=== PATIENT | male | born 1955 | race Caucasian/White ===

== ENCOUNTER 2018-06-01 17:24 | Inpatient (IN) ==
[2018-06-01] MEDS ORDERED: Sod Chloride 0.9% Inj 1,000 ML IV.SIG SCH ×2 (18:00→18:45)
[2018-06-01] MEDS ORDERED: Morphine Sulfate Inj 8 MG/ML Vial IV.PUSH ONE (18:04)
[2018-06-01] MEDS ORDERED: Vancomycin Inj 1,000 MG in Sodium Chlor 0.9% Inj 250 ML IV.SIG ONE ×2 (18:25→23:00)
--- NOTE | 2018-06-01 18:26 | XR ---
EXAM DATE: 06/01/2018 6:18 PM EST AGE/SEX: 62 years / Male INDICATIONS: Fever. Patient had open wound on lower back. CLINICAL DATA: This is the patient's initial encounter. Patient reports that signs and symptoms have been present for 1 day and indicates a pain score of 0/10. MEDICAL/SURGICAL HISTORY: None. None. COMPARISON: No prior exams available for comparison. FINDINGS: A single AP view of the chest demonstrates the lungs to be symmetrically aerated without evidence of mass, infiltrate or effusion. The cardiomediastinal contours are unremarkable. Osseous structures a re intact. CONCLUSION: No evidence of acute cardiopulmonary disease. Electronically signed by: Luca Grant MD 06/01/2018 6:24 PM EST
[2018-06-01 18:34] LABS: Baso # (Auto) 0.1 th/mm3 (0.0-0.2); Baso % (Auto) 0.4 % (0.0-2.0); Hematocrit 40.9 % (39.0-51.0); Hemoglobin 13.6 gm/dL (13.0-17.0); Lymph # (Auto) 0.8 th/mm3 (1.0-4.8); Lymph % (Auto) 3.9 % (9.0-44.0); Mean Corpuscular HGB Conc 33.3 % (32.0-36.0); Mean Corpuscular Hemoglobin 30.4 pg (27.0-34.0); Mean Corpuscular Volume 91.4 fL (80.0-100.0); Mean Platelet Volume 8.4 fL (7.0-11.0); Mono # (Auto) 0.8 th/mm3 (0.0-0.9); Mono % (Auto) 3.9 % (0.0-8.0); Neut # (Auto) 17.9 th/mm3 (1.8-7.7); Neut % (Auto) 91.8 % (16.0-70.0); Platelet Count 660 th/mm3 (150-450); Red Blood Count 4.47 mil/mm3 (4.50-5.90); Red Cell Distribution Width 14.3 % (11.6-17.2); White Blood Count 19.5 th/mm3 (4.0-11.0)
--- NOTE | 2018-06-01 18:38 | ED ---
HPI General Chief Complaint: Recheck/Abnormal Lab/Rx Stated Complaint: Patient states poss infection in spinal area Time Seen by Provider: 06/01/18 17:55 Source: patient and family Mode of arrival: wheelchair Limitations: no limitations History of Present Illness HPI narrative: 62 yo male that presents to the ED for evaluation of infection to lower back. Patient states that he was told by his doctor to come here stat due to infection to lower back. Per patient history of lower back pain x 3 weeks. No injury. per patient not improving and MRI was ordered and apparently showed infection and told to come here. Per patient no surgeries to his back recently but one done almost 12 years ago. no injury. No weakness. No numbness, tingling. No fevers. pain is 10/10 with movement. History of DM. No blood thinners. Taking pain meds and per patient steroids. patient denies any urinary or BM issues. Related Data Home Medications Medication Instructions Recorded Confirmed Unable to Obtain Home Meds 06/01/18 06/01/18 Allergies Allergy/AdvReac Type Severity Reaction Status Date / Time penicillin G Allergy Unknown Rash Verified 06/01/18 19:02 Review of Systems ROS: all other systems reviewed are negative [facility] Medical History Medical History Diabetes (Acute) High cholesterol (Acute) Surgical History Surgical History Previous back surgery (Acute) Social History Social History Substance History: No History of Abuse Smoking Status: Never smoker How Often Do You Have a Drink Containing Alcohol: Never Recent Travel in [facility] within the Last 8 Weeks: No Recent Out of Country Travel within the Last 8 Weeks: No Immunization History Tetanus Immunization: >5 Years Exam Narrative Exam Narrative: GENERAL: SKIN: Warm and dry. HEAD: Atraumatic. Normocephalic. EYES: Pupils equal and round. No scleral icterus. No injection or drainage. ENT: No nasal bleeding or discharge. Mucous membranes pink and moist. Tongue is midline. No uvula deviation. NECK: Trachea midline. No JVD. CARDIOVASCULAR: Regular rate and rhythm. RESPIRATORY: No accessory muscle use. Clear to auscultation. Breath sounds equal bilaterally. GASTROINTESTINAL: Abdomen soft, non-tender, nondistended. Hepatic and splenic margins not palpable. MUSCULOSKELETAL: Extremities without clubbing, cyanosis, or edema. No obvious deformities. Full ROM of the upper and lower extremities with severe pain with ROM of the lower extremities especially straight leg test. 2+ pulses bilaterally. Lumbar spine tenderness. No thoracic, cervical spine tenderness to palpation. NEUROLOGICAL: Awake and alert. No obvious cranial nerve deficits. Motor grossly within normal limits. Five out of 5 muscle strength in the arms and legs. Normal speech. PSYCHIATRIC: Appropriate mood and affect; insight and judgment normal. Course Initial Documented Vital Signs Temperature 97.5 F L 06/01/18 17:35 Pulse Rate 119 H 06/01/18 17:35 Respiratory Rate 22 06/01/18 17:35 Blood Pressure 131/75 06/01/18 17:35 Pulse Oximetry 100 06/01/18 17:35 Last Documented Vital Signs Temperature 97.5 F L 06/01/18 17:35 Pulse Rate 91 H 06/01/18 19:20 Respiratory Rate 16 06/01/18 19:20 Blood Pressure 122/68 06/01/18 19:20 Pulse Oximetry 98 06/01/18 19:20 Medical Decision Making MDM Narrative Medical decision making narrative: 62 yo male here for infected lower back. patient was evaluated and MRI from outside facility reviewed. MRI showed: 1) Post contrast images are concerning for an osteomyelitis of a good portion of the L5 vertebral body and superior endplate of S1 with an intervening epidural abscess. Sparing of the intervertebral disk. 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 3) Results were discussed with Dr Nica Tyson. Labs and imaging ordered. Case discussed with my attending Dr Rollins who recommends speaking with neurosurgery. Dr Virgen consulted and recommends admission to medicine, IR consult to see if they can do a biopsy and culture. Consult to IR Dr Pickering who states he wont be able to do the procedure tonight but will do it in the am, NPO and preop labs. Case discussed with my attending Dr Rollins who recommends we start antibiotics as patient will not be able to get procedure until Tomorrow, he recommends starting on ceftizimide and vancomycin, this was ordered. Dr Tyson consulted and states that she has not seen the patient and is one of her partner's patients and will defer case to neurosugery and IR. Patient understands need for admission. Labs showed WBC elevation, lactic acidosis. Patient admitted to Dr Fernandez who agrees with treatment plan. Medical Screen Exam Complete: Yes Emergency Medical Condition: Yes Differential Diagnosis Differential Diagnosis: epidural abscess vs osteomyelitis vs sepsis Medical Records Medical records reviewed: Yes I reviewed the patient's medical records. Lab Data Lab results reviewed: Yes I reviewed the patient's lab results. Result diagrams: 06/01/18 18:15 06/01/18 18:15 Lab Results 06/01/18 06/01/18 06/01/18 Range/Units 18:15 18:15 18:15 WBC 19.5 H (4.0-11.0) th/mm3 RBC 4.47 L (4.50-5.90) mil/mm3 Hgb 13.6 (13.0-17.0) gm/dL Hct 40.9 (39.0-51.0) % MCV 91.4 (80.0-100.0) fL MCH 30.4 (27.0-34.0) pg MCHC 33.3 (32.0-36.0) % RDW 14.3 (11.6-17.2) % Plt Count 660 H (150-450) th/mm3 MPV 8.4 (7.0-11.0) fL Neut % (Auto) 91.8 H (16.0-70.0) % Lymph % (Auto) 3.9 L (9.0-44.0) % [place] % (Auto) 3.9 (0.0-8.0) % Eos % (Auto) 0.0 (0.0-4.0) % Baso % (Auto) 0.4 (0.0-2.0) % Neut # (Auto) 17.9 H (1.8-7.7) th/mm3 Lymph # (Auto) 0.8 L (1.0-4.8) th/mm3 [place] # (Auto) 0.8 (0.0-0.9) th/mm3 Eos # (Auto) 0.0 (0.0-0.4) th/mm3 Baso # (Auto) 0.1 (0.0-0.2) th/mm3 WBC Differential . Differential Comment Auto diff final ESR (0-20) mm/hr PT 11.7 H (9.8-11.6) sec INR 1.2 Ratio APTT 28.2 (23.4-31.7) sec Sodium 130 L (136-145) meq/L Potassium 4.6 (3.5-5.1) meq/L Chloride 98 (98-107) meq/L Carbon Dioxide 23.1 (21.0-32.0) meq/L Anion Gap 9 (5-15) meq/L BUN 27 H (7-18) mg/dL Creatinine 1.11 (0.60-1.30) mg/dL Estimated GFR 67 L (>89) mL/min POC Glucose (68-110) mg/dl Random Glucose 197 H (74-106) mg/dL Lactic Acid (0.4-2.0) mmol/L Calcium 9.6 (8.5-10.1) mg/dL Magnesium 2.4 (1.5-2.5) mg/dL Total Bilirubin 0.4 (0.2-1.0) mg/dL AST 35 (15-37) U/L ALT 27 (12-78) U/L Alkaline Phosphatase 60 (45-117) U/L Total Protein 8.5 H (6.4-8.2) g/dL Albumin 2.4 L (3.4-5.0) g/dL 06/01/18 06/01/18 06/01/18 Range/Units 18:15 18:15 19:22 WBC (4.0-11.0) th/mm3 RBC (4.50-5.90) mil/mm3 Hgb (13.0-17.0) gm/dL Hct (39.0-51.0) % MCV (80.0-100.0) fL MCH (27.0-34.0) pg MCHC (32.0-36.0) % RDW (11.6-17.2) % Plt Count (150-450) th/mm3 MPV (7.0-11.0) fL Neut % (Auto) (16.0-70.0) % Lymph % (Auto) (9.0-44.0) % [place] % (Auto) (0.0-8.0) % Eos % (Auto) (0.0-4.0) % Baso % (Auto) (0.0-2.0) % Neut # (Auto) (1.8-7.7) th/mm3 Lymph # (Auto) (1.0-4.8) th/mm3 [place] # (Auto) (0.0-0.9) th/mm3 Eos # (Auto) (0.0-0.4) th/mm3 Baso # (Auto) (0.0-0.2) th/mm3 WBC Differential Differential Comment ESR 62 H (0-20) mm/hr PT (9.8-11.6) sec INR Ratio APTT (23.4-31.7) sec Sodium (136-145) meq/L Potassium (3.5-5.1) meq/L Chloride (98-107) meq/L Carbon Dioxide (21.0-32.0) meq/L Anion Gap (5-15) meq/L BUN (7-18) mg/dL Creatinine (0.60-1.30) mg/dL Estimated GFR (>89) mL/min POC Glucose 160 H (68-110) mg/dl Random Glucose (74-106) mg/dL Lactic Acid 2.1 H (0.4-2.0) mmol/L Calcium (8.5-10.1) mg/dL Magnesium (1.5-2.5) mg/dL Total Bilirubin (0.2-1.0) mg/dL AST (15-37) U/L ALT (12-78) U/L Alkaline Phosphatase (45-117) U/L Total Protein (6.4-8.2) g/dL Albumin (3.4-5.0) g/dL Imaging Data Attestation: I personally reviewed and interpreted this imaging study as follows : Radiologist's impression: Chest X-Ray 06/01/18 17:59 CONCLUSION: No evidence of acute cardiopulmonary disease. ECG Data Attestation: I personally reviewed and interpreted this ECG as follows: Discharge Plan Physicians Team ED Provider: Gagan Rollins ED Midlevel Provider: Mohsen Torres Primary Care Provider: Vlad Richard Rxs /Orders / Referrals /Forms Prescriptions: No Action Unable to Obtain Home Meds RF: 0 Discharge Interventions Interventions: Vital Signs Last Done: 06/01/18 19:20 Status ED Status: Admitted Patient
[2018-06-01 18:42] LABS: Activated Partial Thrombo Time 28.2 sec (23.4-31.7); INR 1.2 Ratio; Prothrombin Time 11.7 sec (9.8-11.6)
[2018-06-01 18:55] LABS: Alanine Aminotransferase 27 U/L (12-78)
[2018-06-01 18:57] LABS: Alkaline Phosphatase 60 U/L (45-117); Total Protein 8.5 g/dL (6.4-8.2)
[2018-06-01 19:15] LABS: Albumin 2.4 g/dL (3.4-5.0); Anion Gap 9 meq/L (5-15); Aspartate Aminotransferase 35 U/L (15-37); Blood Urea Nitrogen 27 mg/dL (7-18); Calcium 9.6 mg/dL (8.5-10.1); Carbon Dioxide 23.1 meq/L (21.0-32.0); Chloride 98 meq/L (98-107); Glomerular Filtration Rate 67 mL/min (>89); Glucose,Random 197 mg/dL (74-106); Magnesium 2.4 mg/dL (1.5-2.5); Potassium 4.6 meq/L (3.5-5.1); Sodium 130 meq/L (136-145)
--- NOTE | 2018-06-01 19:45 | P.CONNS ---
History of Present Illness Primary Care Provider: Vlad Richard Chief Complaint: back pain History of Present Illness: 62yoM with back pain x 3 weeks, h/o back surgery 2002 ([facility] Spivey), works as a [employer], but has been unable to cover his route x 2 weeks. Son present and gives some of the history. Has been working with PCP as back pain increased, got an MRI yesterday without contrast and today with contrast, showing osteomyelitis L5/S1 with small epidural abscess. Patient stood today but has been reliant on walker and wheelchair. No bowel or bladder incontinence. Patient is leary about surgery. [facility] - History History Provided By: Patient - Medical History Medical History: Medical History (Last Reviewed 06/01/18 @ 18:29 by TRAVIS Silva) Diabetes High cholesterol - Surgical History Surgical History: Surgical History (Last Reviewed 06/01/18 @ 18:29 by TRAVIS Silva) Previous back surgery - Tobacco History Smoking Status: Never smoker - Alcohol History How Often Do You Have a Drink Containing Alcohol: Never - Substance Use History Substance History: No History of Abuse - Travel History Recent Travel in the [place] Within the Last 8 Weeks: No Recent Travel Out of the Country Within the Last 8 Weeks: No - Immunization History Tetanus Immunization: >5 Years Medications and Allergies Active Medications: Active Medications Sodium Chloride (Ns Inj) 1,000 mls @ 1,000 mls/hr IV.SIG BOLUS MIKE Stop: 06/01/18 19:44 Last Admin: 06/01/18 19:07 Dose: 1,000 mls/hr Allergies Allergy/AdvReac Type Severity Reaction Status Date / Time penicillin G Allergy Unknown Rash Verified 06/01/18 19:02 Home Medications Medication Instructions Recorded Confirmed Type Unable to Obtain Home Meds 06/01/18 06/01/18 History Exam Vital signs: Vital Signs 06/01/18 17:35 06/01/18 17:58 06/01/18 18:24 Temperature 97.5 F L Pulse Rate 119 H 104 H Respiratory Rate 22 16 Blood Pressure 131/75 Pulse Oximetry 100 95 95 06/01/18 19:20 Temperature Pulse Rate 91 H Respiratory Rate 16 Blood Pressure 122/68 Pulse Oximetry 98 Intake & Output 06/01/18 06/01/18 06/02/18 06:59 18:59 06:59 Intake Total 1000 / 1000 Balance 1000 / 1000 Weight 79.379 kg Intake: IV 1000 / 1000 NS Inj 1,000 ML @ 1000 mls/hr 1000 / 1000 IV.SIG BOLUS MIKE Rx#:[id number] Narrative: Tests to full strength and intact sensation in lower extremities in all groups ( ip, quad, ham, gas, ta, ehl). Intact upper extremities A&O x 3 CN II-XII intact Results - Laboratory Findings CBC and BMP: 06/01/18 18:15 06/01/18 18:15 Abnormal lab findings: Abnormal Labs 06/01/18 06/01/18 06/01/18 18:15 18:15 18:15 WBC 19.5 H RBC 4.47 L Plt Count 660 H Neut % (Auto) 91.8 H Lymph % (Auto) 3.9 L Neut # (Auto) 17.9 H Lymph # (Auto) 0.8 L ESR PT 11.7 H Sodium 130 L BUN 27 H Estimated GFR 67 L POC Glucose Random Glucose 197 H Lactic Acid Total Protein 8.5 H Albumin 2.4 L 06/01/18 06/01/18 06/01/18 18:15 18:15 19:22 WBC RBC Plt Count Neut % (Auto) Lymph % (Auto) Neut # (Auto) Lymph # (Auto) ESR 62 H PT Sodium BUN Estimated GFR POC Glucose 160 H Random Glucose Lactic Acid 2.1 H Total Protein Albumin - Diagnostic Findings Additional findings: MRI L-spine showing osteo at L5/S1 with small epidural abscess without mass effect Assessment and Plan - Plan 62yoM with new osteomyelitis at L5/S1, progressive back pain x 3 weeks, neurologically intact testing to full strength. Plan: Given intact exam, recommend IR/CT guided biopsy to target therapy. Admission to Medicine. ID consult thereafter. Blood cultures, urine cultures, abx. We will follow exam but neurosurgery indicated if he develops weakness, not at the moment and should improve with abx. Patient also reluctant to proceed with surgery.
[2018-06-01] MEDS ORDERED: Dextrose 50% in Water 50 ML Vial IV.PUSH PRN (21:42)
--- NOTE | 2018-06-01 21:53 | P.HP ---
History of Present Illness Service: [facility] Primary Care Physician: Vlad Richard Chief Complaint: back pain History of Present Illness: 62-year-old white male was has a history of back pain back in 2002 where he underwent surgery for discectomy for the last few weeks has had increasing back pain which did not respond to medications fluting anti-inflammatories and prednisone primary care physician ordered a MRI which revealed an osteomyelitis with a small epidural abscess in his L5-S1 and sent to [place] for evaluation by neurosurgery and admission. Patient denies any fever chills does have a history of diabetes for which he takes some p.o. medications including metformin he does not recall the name he will bring them in also takes a statin other than that is been essentially negative past medical in the emergency room he was seen and by the neurosurgeon not keen to have undergoing surgery but will first start on antibiotics including vancomycin ceftazidine. And will get evaluation by infectious disease. Patient denies fever chills nausea or vomiting. - Diagnosis (1) Osteomyelitis (2) Epidural abscess (3) Diabetes Review of Systems All other systems reviewed negative except as stated in HPI PMFSH - History History Provided By: Patient - Medical History Medical History: Medical History (Last Reviewed 06/01/18 @ 21:51 by Narayan Benito MD) Diabetes High cholesterol - Surgical History Surgical History: Surgical History (Last Reviewed 06/01/18 @ 21:51 by Narayan Benito MD) Previous back surgery - Tobacco History Smoking Status: Never smoker - Alcohol History How Often Do You Have a Drink Containing Alcohol: Never - Substance Use History Substance History: No History of Abuse - Travel History Recent Travel in the [facility] Within the Last 8 Weeks: No Recent Travel Out of the Country Within the Last 8 Weeks: No - Immunization History Tetanus Immunization: >5 Years Medications and Allergies Active Medications: Active Medications Acetaminophen (Tylenol) 650 mg PO Q4H PRN PRN Reason: Temp > 100.4 Dextrose (D50w Vial) 50 ml IV.PUSH UNSCH PRN PRN Reason: PER HYPOGLYCEMIA PROTOCOL Glucagon (Glucagon Inj) 1 mg OTHER PRN PRN PRN Reason: for Hypoglycemia Protocol Sodium Chloride (1/2 Normal Saline Inj) 1,000 mls @ 75 mls/hr IV.CONT .[id number] MIKE Insulin Aspart (Novolog Insulin Correctional Sugar Inj) 0 unit SQ Q6HR MIKE; Protocol Lactulose (Lactulose Liq) 30 ml PO DAILY PRN PRN Reason: SEVERE CONSITIPATION Ondansetron HCl (Zofran Inj) 4 mg IV.PUSH Q6H PRN PRN Reason: NAUSEA OR VOMITING Senna/Docusate Sodium (Juany-Colace) 1 tab PO BID MIKE Allergies Allergy/AdvReac Type Severity Reaction Status Date / Time penicillin G Allergy Unknown Rash Verified 06/01/18 19:02 Home Medications Medication Instructions Recorded Confirmed Type Unable to Obtain Home Meds 06/01/18 06/01/18 History Exam Vital signs: Vital Signs 06/01/18 17:35 06/01/18 17:58 06/01/18 18:24 Temperature 97.5 F L Pulse Rate 119 H 104 H Respiratory Rate 22 16 Blood Pressure 131/75 Pulse Oximetry 100 95 95 06/01/18 19:20 Temperature Pulse Rate 91 H Respiratory Rate 16 Blood Pressure 122/68 Pulse Oximetry 98 Intake & Output 06/01/18 06/01/18 06/02/18 06:59 18:59 06:59 Intake Total 2350 / 2350 Balance 2350 / 2350 Weight 79.379 kg Intake: IV 2350 / 2350 NS Inj 1,000 ML @ 1000 mls/hr 1999 / 1999 IV.SIG BOLUS MKIE Rx#:[id number] Vancomycin Inj 1,000 MG In NS 250 / 250 Inj 250 ML @ 250 mls/hr IV.SIG ONCE ONE Rx#:[id number] Tazicef Inj 2,000 MG In NS Inj 100 / 100 100 ML @ 200 mls/hr IV.SIG ONCE ONE Rx#:[id number] Narrative: GENERAL: SKIN: Warm and dry. HEAD: Normocephalic. EYES: No scleral icterus. No injection or drainage. NECK: Supple, trachea midline. No JVD or lymphadenopathy. CARDIOVASCULAR: Regular rate and rhythm without murmurs, gallops, or rubs. RESPIRATORY: Breath sounds equal bilaterally. No accessory muscle use. GASTROINTESTINAL: Abdomen soft, non-tender, nondistended. MUSCULOSKELETAL: No cyanosis, or edema. BACK: Nontender without obvious deformity. Pain on movement Results - Labs CBC & Chem 7: 06/01/18 18:15 06/01/18 18:15 Labs: Laboratory Results - last 24 hr 06/01/18 06/01/1806/01/18 18:15 18:15 18:15 WBC 19.5 H RBC 4.47 L Hgb 13.6 Hct 40.9 MCV 91.4 MCH 30.4 MCHC 33.3 RDW 14.3 Plt Count 660 H MPV 8.4 Neut % (Auto) 91.8 H Lymph % (Auto) 3.9 L Hall % (Auto) 3.9 Eos % (Auto) 0.0 Baso % (Auto) 0.4 Neut # (Auto) 17.9 H Lymph # (Auto) 0.8 L Hall # (Auto) 0.8 Eos # (Auto) 0.0 Baso # (Auto) 0.1 WBC Differential . Differential Comment Auto diff final ESR PT 11.7 H INR 1.2 APTT 28.2 Sodium 130 L Potassium 4.6 Chloride 98 Carbon Dioxide 23.1 Anion Gap 9 BUN 27 H Creatinine 1.11 Estimated GFR 67 L POC Glucose Random Glucose 197 H Lactic Acid Calcium 9.6 Magnesium 2.4 Total Bilirubin 0.4 AST 35 ALT 27 Alkaline Phosphatase 60 Total Protein 8.5 H Albumin 2.4 L 06/01/18 06/01/18 06/01/18 18:15 18:15 19:22 WBC RBC Hgb Hct MCV MCH MCHC RDW Plt Count MPV Neut % (Auto) Lymph % (Auto) Hall % (Auto) Eos % (Auto) Baso % (Auto) Neut # (Auto) Lymph # (Auto) Hall # (Auto) Eos # (Auto) Baso # (Auto) WBC Differential Differential Comment ESR 62 H PT INR APTT Sodium Potassium Chloride Carbon Dioxide Anion Gap BUN Creatinine Estimated GFR POC Glucose 160 H Random Glucose Lactic Acid 2.1 H Calcium Magnesium Total Bilirubin AST ALT Alkaline Phosphatase Total Protein Albumin 06/01/18 21:05 WBC RBC Hgb Hct MCV MCH MCHC RDW Plt Count MPV Neut % (Auto) Lymph % (Auto) Hall % (Auto) Eos % (Auto) Baso % (Auto) Neut # (Auto) Lymph # (Auto) Hall # (Auto) Eos # (Auto) Baso # (Auto) WBC Differential Differential Comment ESR PT INR APTT Sodium Potassium Chloride Carbon Dioxide Anion Gap BUN Creatinine Estimated GFR POC Glucose Random Glucose Lactic Acid 1.2 Calcium Magnesium Total Bilirubin AST ALT Alkaline Phosphatase Total Protein Albumin - Imaging Impressions Chest X-Ray 06/01/18 17:59 CONCLUSION: No evidence of acute cardiopulmonary disease. Caprini VTE Risk Assessment Caprini VTE Risk Assessment: Moderate/High Risk (score >= 2) Caprini Risk Assessment Model: Point Value = 1 Point Value = 2 Point Value = 3 Point Value = 5 Age 41-60 Minor surgery BMI > 25 kg/m2 Swollen legs Varicose veins or History of unexplained or recurrent spontaneous Oral contraceptives or hormone replacement Sepsis (< 1 month) Serious lung disease, including pneumonia (< 1 month) Abnormal pulmonary function Acute myocardial infarction Congestive heart failure (< 1 month) History of inflammatory bowel disease Medical patient at bed rest Age 61-74 Arthroscopic surgery Major open surgery (> 45 min) Laparoscopic surgery (> 45 min) Malignancy Confined to bed (> 72 hours) Immobilizing plaster cast Central venous access Age >= 75 History of VTE Family history of VTE Factor V Leiden Prothrombin [id number] Lupus anticoagulant Anticardiolipin antibodies Elevated serum homocysteine Heparin-induced thrombocytopenia Other congenital or acquired thrombophilia Stroke (< 1 month) Elective arthroplasty Hip, pelvis, or leg fracture Acute spinal cord injury (< 1 month) Prophylaxis Regimen: Total Risk Factor Score Risk Level Prophylaxis Regimen 0-1 Low Early ambulation 2 Moderate Order ONE of the following: *Sequential Compression Device (SCD) *Heparin 5000 units SQ BID 3-4 Higher Order ONE of the following medications: *Heparin 5000 units SQ TID *Enoxaparin/Lovenox 40 mg SQ daily (WT < 150 kg, CrCl > 30 mL/min) *Enoxaparin/Lovenox 30 mg SQ daily (WT < 150 kg, CrCl > 10-29 mL/min) *Enoxaparin/Lovenox 30 mg SQ BID (WT < 150 kg, CrCl > 30 mL/min) AND/OR *Sequential Compression Device (SCD) 5 or more Highest Order ONE of the following medications: *Heparin 5000 units SQ TID (Preferred with Epidurals) *Enoxaparin/Lovenox 40 mg SQ daily (WT < 150 kg, CrCl > 30 mL/min) *Enoxaparin/Lovenox 30 mg SQ daily (WT < 150 kg, CrCl > 10-29 mL/min) *Enoxaparin/Lovenox 30 mg SQ BID (WT < 150 kg, CrCl > 30 mL/min) AND *Sequential Compression Device (SCD) Assessment and Plan - Assessment (1) Osteomyelitis Code(s): M86.9 - Osteomyelitis, unspecified Status: Acute Plan: Osteomyelitis lumbar spine L5-S1 started on ceftazidime and vancomycin will continue obtain infectious disease consult neurosurgery is already evaluated (2) Epidural abscess Code(s): G06.2 - Extradural and subdural abscess, unspecified Status: Acute Plan: As above ceftazidime vancomycin infectious disease consult neurosurgical consult (3) Diabetes Code(s): E11.9 - Type 2 diabetes mellitus without complications Status: Acute Plan: Patient not sure of his p.o. dose at home will use sliding scale medium coverage of NovoLog at this time - Plan Further plan as case develops Code Status: Full Discussed Condition With: Patient (3) Diabetes Qualifiers: Diabetes mellitus type: type 2
--- NOTE | 2018-06-01 21:55 | P.PNADD ---
Addendum to Inpatient Note Reason for Addendum: Additional Documentation (Patient has had rash to penicillin in the past I will use ceftazidime for now should any symptoms develop will consider deseeding it will await infectious disease eval)
--- NOTE | 2018-06-01 21:56 | P.PNADD ---
Addendum to Inpatient Note Reason for Addendum: Additional Documentation (Patient with WBC count of 19,000 also has a elevated sed rate consistent with his infection antibiotics as above follow levels)
[2018-06-01] MEDS ORDERED: Vancomycin Consult Pharmacy 1 EACH OTHER SCH (22:00)
[2018-06-01] MEDS: Morphine Sulfate Inj 2 MG/ML Vial IV.PUSH PRN (22:53)
[2018-06-02] MEDS: Sodium Chloride 0.45 % Inj 1,000 ML IV.CONT SCH ×2 (00:55→22:56)
[2018-06-02] MEDS: Insulin NovoLOG Aspart Correctional Sugar Inj SQ SCH ×6 (01:06→22:56)
[2018-06-02] MEDS: Morphine Sulfate Inj 2 MG/ML Vial IV.PUSH PRN ×2 (05:07→08:52)
[2018-06-02 07:06] LABS: Baso # (Auto) 0.1 th/mm3 (0.0-0.2); Baso % (Auto) 0.4 % (0.0-2.0); Eos % (Auto) 0.1 % (0.0-4.0); Hematocrit 36.9 % (39.0-51.0); Hemoglobin 12.3 gm/dL (13.0-17.0); Lymph # (Auto) 0.8 th/mm3 (1.0-4.8); Lymph % (Auto) 6.1 % (9.0-44.0); Mean Corpuscular HGB Conc 33.3 % (32.0-36.0); Mean Corpuscular Hemoglobin 30.6 pg (27.0-34.0); Mean Corpuscular Volume 91.8 fL (80.0-100.0); Mean Platelet Volume 7.5 fL (7.0-11.0); Mono # (Auto) 0.7 th/mm3 (0.0-0.9); Mono % (Auto) 5.9 % (0.0-8.0); Neut # (Auto) 10.8 th/mm3 (1.8-7.7); Neut % (Auto) 87.5 % (16.0-70.0); Platelet Count 553 th/mm3 (150-450); Red Blood Count 4.01 mil/mm3 (4.50-5.90); Red Cell Distribution Width 14.6 % (11.6-17.2); White Blood Count 12.3 th/mm3 (4.0-11.0)
[2018-06-02 07:31] LABS: Calcium 8.9 mg/dL (8.5-10.1); Carbon Dioxide 27.1 meq/L (21.0-32.0); Potassium 3.8 meq/L (3.5-5.1)
[2018-06-02] MEDS: Senna/Docusate Sodium 8.6/50 MG Tablet PO SCH ×2 (08:52→22:55)
--- NOTE | 2018-06-02 09:33 | P.PNIM ---
Subjective Interval history: Patient resting in bed Patient reports continued back pain despite Morphine Physical Exam Vital signs: Last Vital Signs Temp 99.8 F H 06/02/18 08:00 Pulse 98 H 06/02/18 08:00 Resp 20 06/02/18 08:00 BP 128/66 06/02/18 08:00 Pulse Ox 96 06/02/18 08:00 Narrative: GENERAL: This is a well-nourished, well-developed patient, in no apparent distress. CARDIOVASCULAR: Regular rate and rhythm RESPIRATORY: Clear to auscultation. Breath sounds equal bilaterally. GASTROINTESTINAL: Abdomen soft, non-tender, nondistended. Normal active bowel sounds MUSCULOSKELETAL: Extremities without clubbing, cyanosis, or edema. NEURO: Alert & Oriented x4 to person, place, time, situation. Moves all ext x4. right lower extremity slightly weaker than left 3-4/5, left lower extremity 4/5, bilateral upper extremities 4/5 bilaterally Results Labs CBC & Chem 7: 06/02/18 06:39 06/02/18 06:39 Assessment and Plan Assessment (1) Osteomyelitis: Code(s): M86.9 - Osteomyelitis, unspecified Status: Acute (2) Epidural abscess: Code(s): G06.2 - Extradural and subdural abscess, unspecified Status: Acute (3) Diabetes: Code(s): E11.9 - Type 2 diabetes mellitus without complications Status: Acute Plan 62-year-old white male was has a history of back pain back in 2002 where he underwent surgery for discectomy for the last few weeks has had increasing back pain which did not respond to anti-inflammatories and prednisone primary care physician ordered a MRI which revealed an osteomyelitis with a small epidural abscess in his L5-S1 and sent to [place] for evaluation by neurosurgery and admission. Osteomyelitis Epidural abscess Osteomyelitis lumbar spine L5-S1 started on ceftazidime and vancomycin will continue consult infectious disease consult neurosurgery who already evaluated- does not feel surgery is indicated at this time recommending IR biopsy to direct abx treatment. ER placed IR consult Diabetes diabetic diet accucheck ACHS with medium dose SSI coverage Progress Note: Quality VTE Deep Vein Thrombosis/Pulmonary Embolism Present on Admission: No _ (1) Diabetes Qualifiers: Chronic kidney disease stage: Diabetes mellitus complication detail: Diabetes mellitus complication status: Diabetes mellitus termination clerk insulin use : Diabetes mellitus macular edema: Diabetes mellitus type: type 2 Diabetic retinopathy severity: Laterality: Proliferative retinopathy type: (2) Osteomyelitis Qualifiers: Laterality: Osteomyelitis location: Osteomyelitis type:
--- NOTE | 2018-06-02 13:04 | P.CONID ---
History of Present Illness Service: Infectious Disease Consult date: 06/02/18 Requesting Physician: Lonnie Johansen Reason for Consult: Evaluation and Mment of Epidural abscess Primary Care Provider: Vlad Richard Chief Complaint: back pain History of Present Illness: is a 62 y/o WM with h/o back pain in 2003 s/p discectomy. He reports being heathy and fully functional prior to this. 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 He now reports back pain for last 3-4 weeks. He denies any constitutional symptoms like fever, chills, night sweats. He denies any other systemic symptoms of GI, or dental origin or skin origin. He denies any injuries to skin or IVDA. 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 When his back pain did not respond to usual measures an MRI spine was done with revealed osteomyelitis and ? small epidural abscess. I do not have access to these images as these were done at [facility] but radiologist will likely be able to review them prior to IR biopsy for which he is scheduled today. Patient was seen by Neurosurgery and IR biopsy recommended. ID consulted for evaluation and Mment of epidural abscess, discitis. Review of Systems All other systems reviewed negative except as stated in HPI PMFSH - History History Provided By: Patient - Medical History Medical History: Medical History (Last Reviewed 06/01/18 @ 21:51 by Narayan Benito MD) Diabetes High cholesterol - Surgical History Surgical History: Surgical History (Last Reviewed 06/01/18 @ 21:51 by Narayan Benito MD) Previous back surgery - Tobacco History Second Hand Smoke Exposure: No Smoking Status: Never smoker - Alcohol History How Often Do You Have a Drink Containing Alcohol: Never - Substance Use History Substance History: No History of Abuse - Travel History Recent Travel in the [place] Within the Last 8 Weeks: No Recent Travel Out of the Country Within the Last 8 Weeks: No - Immunization History Tetanus Immunization: <5 Years Hx Influenza Vaccine This Season: No Medications and Allergies Active Medications: Active Medications Acetaminophen (Tylenol) 650 mg PO Q4H PRN PRN Reason: Temp > 100.4 Hydrocodone Bitart/Acetaminophen ([place] 5/325) 1 tab PO Q4H PRN PRN Reason: PAIN SCALE 1 TO 5 Dextrose (D50w Vial) 50 ml IV.PUSH UNSCH PRN PRN Reason: PER HYPOGLYCEMIA PROTOCOL Glucagon (Glucagon Inj) 1 mg OTHER PRN PRN PRN Reason: for Hypoglycemia Protocol Sodium Chloride (1/2 Normal Saline Inj) 1,000 mls @ 75 mls/hr IV.CONT .[id number] [facility] Last Admin: 06/02/18 00:55 Dose: 75 mls/hr Pharmacy Profile Note (Vancomycin Consult Pharmacy) 0 mls @ 0 mls/hr OTHER UNSCH [facility] Ceftazidime 1,000 mg/ Sodium (Chloride) 100 mls @ 200 mls/hr IV.SIG Q8H [facility] Last Infusion: 06/02/18 06:00 Dose: Infused Vancomycin HCl 1,250 mg/ (Sodium Chloride) 262.5 mls @ 250 mls/hr IV.SIG Q12H [facility] Insulin Aspart (Novolog Insulin Correctional Sugar Inj) 0 unit SQ ACHS [facility]; Protocol Last Admin: 06/02/18 08:00 Dose: Not Given Lactulose (Lactulose Liq) 30 ml PO DAILY PRN PRN Reason: SEVERE CONSITIPATION Miscellaneous Information ([facility] Ordered Lab Info) 0 each OTHER ONCE ONE Stop: 06/03/18 11:46 Morphine Sulfate (Morphine Inj) 2 mg IV.PUSH Q4H PRN PRN Reason: PAIN SCALE 6 TO 10 Last Admin: 06/02/18 08:52 Dose: 2 mg Ondansetron HCl (Zofran Inj) 4 mg IV.PUSH Q6H PRN PRN Reason: NAUSEA OR VOMITING Last Admin: 06/02/18 05:06 Dose: 4 mg Senna/Docusate Sodium (Juany-Colace) 1 tab PO BID [facility] Last Admin: 06/02/18 08:52 Dose: 1 tab Allergies Allergy/AdvReac Type Severity Reaction Status Date / Time penicillin G Allergy Unknown Rash Verified 06/01/18 19:02 Home Medications Medication Instructions Recorded Confirmed Type Unable to Obtain Home Meds 06/01/18 06/01/18 History Exam Vital signs: Vital Signs 06/01/18 17:35 06/01/18 17:58 06/01/18 18:24 Temperature 97.5 F L Pulse Rate 119 H 104 H Respiratory Rate 22 16 Blood Pressure 131/75 Pulse Oximetry 100 95 95 06/01/18 19:20 06/02/18 00:00 06/02/18 04:00 Temperature 98.2 F 98.6 F Pulse Rate 91 H 94 H 92 H Respiratory Rate 16 18 18 Blood Pressure 122/68 108/64 132/63 Pulse Oximetry 98 98 99 06/02/18 08:00 06/02/18 12:00 Temperature 99.8 F H 99.5 F Pulse Rate 98 H 89 Respiratory Rate 20 16 Blood Pressure 128/66 122/60 Pulse Oximetry 96 99 Intake & Output 06/01/18 06/02/18 06/02/18 18:59 06:59 18:59 Intake Total 2800 / 2800 Output Total 725 / 725 Balance 2074 / 2074 Weight 79.379 kg 80.4 kg Intake: IV 2800 / 2800 NS Inj 1,000 ML @ 1000 mls/hr 2000 / 1999 IV.SIG BOLUS [facility] Rx#:[id number] Vancomycin Inj 1,000 MG In NS 500 / 500 Inj 250 ML @ 250 mls/hr IV.SIG ONCE ONE Rx#:[id number] Tazicef Inj 1,000 MG In NS Inj 200 / 200 100 ML @ 200 mls/hr IV.SIG Q8H [facility] Rx#:[id number] Tazicef Inj 2,000 MG In NS Inj 100 / 100 100 ML @ 200 mls/hr IV.SIG ONCE ONE Rx#:[id number] Output: Urine 725 / 725 Narrative: GENERAL: Well-nourished well-developed, not in acute distress SKIN: Cool and dry, no generalized rash HEAD: Atraumatic. Normocephalic. No temporal or scalp tenderness. EYES: Pupils equal round and reactive. Scleral icterus. No injection or drainage. No petechia ENT: Nothing abnormal detected NECK: Trachea midline. Supple, nontender, no meningeal signs. CARDIOVASCULAR: HS audible. RESPIRATORY: Clear to auscultation bilaterally. GASTROINTESTINAL: Abdomen soft nontender. MUSCULOSKELETAL: Extremities without clubbing, cyanosis. NEUROLOGICAL: Alert oriented 3. Nonfocal. Psych cooperative IV line sites ok. Results - Labs CBC & Chem 7: 06/02/18 06:39 06/02/18 06:39 Labs: Laboratory Results - last 24 hr 06/01/18 06/01/18 06/01/18 18:15 18:15 18:15 WBC 19.5 H RBC 4.47 L Hgb 13.6 Hct 40.9 MCV 91.4 MCH 30.4 MCHC 33.3 RDW 14.3 Plt Count 660 H MPV 8.4 Neut % (Auto) 91.8 H Lymph % (Auto) 3.9 L [place] % (Auto) 3.9 Eos % (Auto) 0.0 Baso % (Auto) 0.4 Neut # (Auto) 17.9 H Lymph # (Auto) 0.8 L [place] # (Auto) 0.8 Eos # (Auto) 0.0 Baso # (Auto) 0.1 WBC Differential . Differential Comment Auto diff final ESR PT 11.7 H INR 1.2 APTT 28.2 Sodium 130 L Potassium 4.6 Chloride 98 Carbon Dioxide 23.1 Anion Gap 9 BUN 27 H Creatinine 1.11 Estimated GFR 67 L POC Glucose Random Glucose 197 H Lactic Acid Calcium 9.6 Magnesium 2.4 Total Bilirubin 0.4 AST 35 ALT 27 Alkaline Phosphatase 60 Total Protein 8.5 H Albumin 2.4 L 06/01/18 06/01/18 06/01/18 18:15 18:15 19:22 WBC RBC Hgb Hct MCV MCH MCHC RDW Plt Count MPV Neut % (Auto) Lymph % (Auto) [place] % (Auto) Eos % (Auto) Baso % (Auto) Neut # (Auto) Lymph # (Auto) [place] # (Auto) Eos # (Auto) Baso # (Auto) WBC Differential Differential Comment ESR 62 H PT INR APTT Sodium Potassium Chloride Carbon Dioxide Anion Gap BUN Creatinine Estimated GFR POC Glucose 160 H Random Glucose Lactic Acid 2.1 H Calcium Magnesium Total Bilirubin AST ALT Alkaline Phosphatase Total Protein Albumin 06/01/18 06/02/18 06/02/18 21:05 01:04 05:17 WBC RBC Hgb Hct MCV MCH MCHC RDW Plt Count MPV Neut % (Auto) Lymph % (Auto) [place] % (Auto) Eos % (Auto) Baso % (Auto) Neut # (Auto) Lymph # (Auto) [place] # (Auto) Eos # (Auto) Baso # (Auto) WBC Differential Differential Comment ESR PT INR APTT Sodium Potassium Chloride Carbon Dioxide Anion Gap BUN Creatinine Estimated GFR POC Glucose 172 H 123 H Random Glucose Lactic Acid 1.2 Calcium Magnesium Total Bilirubin AST ALT Alkaline Phosphatase Total Protein Albumin 06/02/18 06/02/18 06/02/18 06:39 06:39 09:15 WBC 12.3 H RBC 4.01 L Hgb 12.3 L Hct 36.9 L MCV 91.8 MCH 30.6 MCHC 33.3 RDW 14.6 Plt Count 553 H MPV 7.5 Neut % (Auto) 87.5 H Lymph % (Auto) 6.1 L [place] % (Auto) 5.9 Eos % (Auto) 0.1 Baso % (Auto) 0.4 Neut # (Auto) 10.8 H Lymph # (Auto) 0.8 L [place] # (Auto) 0.7 Eos # (Auto) 0.0 Baso # (Auto) 0.1 WBC Differential . Differential Comment Auto diff final ESR PT INR APTT Sodium 137 Potassium 3.8 D Chloride 102 Carbon Dioxide 27.1 Anion Gap 8 BUN 22 H Creatinine 0.98 Estimated GFR 78 L POC Glucose 111 H Random Glucose 113 H Lactic Acid Calcium 8.9 Magnesium Total Bilirubin AST ALT Alkaline Phosphatase Total Protein Albumin - Imaging Impressions Chest X-Ray 06/01/18 17:59 CONCLUSION: No evidence of acute cardiopulmonary disease. Assessment and Plan - Plan Sepsis on admission (leucocytosis, tachycardia, hypothermia plus source: epidural abscess. Epidural abscess, discitis. GPC bacteremia at time of writing note DM2 on metformin h.o discectomy in past. Recs Continue Ceftazidime IV Continue Vanco IV (target 15-20) Orders for IR biospy in chart RN notified to call IR to get core biopsy for micro and path. Follow cultures Follow clinical course. case dw , pt and RN
[2018-06-02] MEDS: Vancomycin Inj 1,250 MG in Sodium Chlor 0.9% Inj 250 ML IV.SIG SCH (13:28)
[2018-06-02] MEDS ORDERED: fentaNYL Citrate Inj 250 MCG/5 ML Ampul ONE (15:18)
--- NOTE | 2018-06-02 15:37 | P.RAD ---
Post Procedure Progress Note - Procedure Information Supervising Radiologist: Matias Curiel MD Estimated blood loss (mL): 0 Anesthesia: Conscious Sedation - Plan of Activity Patient to Unit: Nursing Unit Patient Condition: Good Additional Comments: L5- 11 guage biopsy. 2 cores (1 for path and 1 for cx). Also aspirate for cx. See PACS Report for procedural detail/treatment.
[2018-06-02] MEDS ORDERED: Vancomycin Consult Pharmacy OTHER PRN (18:49)
[2018-06-02 22:30] LABS: Hepatitits B Surface Antigen Nonreactive (Nonreactive)
--- NOTE | 2018-06-02 23:11 | ECG ---
Date Performed: 06/01/2018 Time Performed: 21:23:36 PTAGE: 62 years EKG: Sinus rhythm NORMAL ECG PREVIOUS TRACING : 05/09/2003 15.58 Since the previous tracing, no significant change noted DOCTOR: Devin Peterson Interpretating Date/Time 06/02/2018 23:10:35
[2018-06-02 23:19] LABS: Hepatitis A IgM Antibody Nonreactive (Nonreactive)
[2018-06-03] MEDS: Sodium Chloride 0.45 % Inj 1,000 ML IV.CONT SCH ×2 (00:51→13:45)
[2018-06-03] MEDS: Vancomycin Inj 1,250 MG in Sodium Chlor 0.9% Inj 250 ML IV.SIG SCH ×2 (00:53→13:14)
[2018-06-03 08:08] LABS: Baso # (Auto) 0.1 th/mm3 (0.0-0.2); Baso % (Auto) 1.3 % (0.0-2.0); Eos % (Auto) 0.1 % (0.0-4.0); Lymph # (Auto) 0.8 th/mm3 (1.0-4.8); Lymph % (Auto) 10.7 % (9.0-44.0); Mean Corpuscular HGB Conc 34.2 % (32.0-36.0); Mean Corpuscular Hemoglobin 31.1 pg (27.0-34.0); Mean Corpuscular Volume 90.8 fL (80.0-100.0); Mean Platelet Volume 7.7 fL (7.0-11.0); Mono # (Auto) 0.6 th/mm3 (0.0-0.9); Mono % (Auto) 7.1 % (0.0-8.0); Neut # (Auto) 6.3 th/mm3 (1.8-7.7); Neut % (Auto) 80.8 % (16.0-70.0); Platelet Count 416 th/mm3 (150-450); Red Blood Count 3.85 mil/mm3 (4.50-5.90); White Blood Count 7.9 th/mm3 (4.0-11.0)
[2018-06-03 08:29] LABS: Anion Gap 6 meq/L (5-15); Blood Urea Nitrogen 17 mg/dL (7-18); Calcium 8.8 mg/dL (8.5-10.1); Carbon Dioxide 28.2 meq/L (21.0-32.0); Chloride 104 meq/L (98-107); Glomerular Filtration Rate Greater Than 89 mL/min (>89); Glucose,Random 98 mg/dL (74-106); Potassium 3.8 meq/L (3.5-5.1); Sodium 138 meq/L (136-145)
--- NOTE | 2018-06-03 08:35 | P.PNNS ---
Subjective Interval history: Underwent CT guided biopsy yesterday Blood cultures growing On Abx per ID Feels legs still wobbly when he stands, fell yesterday Physical Exam Vital signs: Vital Signs 06/02/18 12:00 06/02/18 16:20 06/02/18 20:00 Temperature 99.5 F 97.8 F 98.9 F Pulse Rate 89 99 H 108 H Respiratory Rate 16 16 18 Blood Pressure 122/60 125/64 151/75 H Pulse Oximetry 99 93 L 97 06/03/18 00:00 06/03/18 04:00 06/03/18 06:11 Temperature 99.3 F 98.5 F Pulse Rate 101 H 85 98 H Respiratory Rate 18 18 19 Blood Pressure 144/68 H 137/66 134/64 Pulse Oximetry 96 98 99 06/03/18 06:12 06/03/18 08:00 Temperature 98.9 F Pulse Rate 98 H 93 H Respiratory Rate 18 18 Blood Pressure 134/64 139/71 Pulse Oximetry 100 98 Intake & Output 06/02/18 06/03/18 06/03/18 18:59 06:59 18:59 Intake Total 262.5 / 262.5 1462.5 / 1462.5 Balance 262.5 / 262.5 1462.5 / 1462.5 Weight 77.5 kg Intake: IV 262.5 / 262.5 1462.5 / 1462.5 1/2 Normal Saline Inj 1,000 ML 1000 / 1000 @ 75 mls/hr IV.CONT .[id number] [facility] Rx#:[id number] Vancomycin Inj 1,250 MG In NS 262.5 / 262.5 262.5 / 262.5 Inj 250 ML @ 250 mls/hr IV.SIG Q12H [facility] Rx#:[id number] Tazicef Inj 1,000 MG In NS Inj 200 / 200 100 ML @ 200 mls/hr IV.SIG Q8H [facility] Rx#:[id number] Other: # Incontinent Voids 3 Date of Last Bowel Movement 06/01/18 Narrative: A&O x 3 CN II-XII intact Motor 5/5 UE. LE test to full strength in ip, q, ham, gas, ta, ehl Patient able to stand with assist Assessment and Plan - Plan 62yoM with new osteomyelitis at L5/S1, progressive back pain x 3 weeks, neurologically intact testing to full strength. Plan: Given intact exam, recommend IR/CT guided biopsy to target therapy. Admission to Medicine. ID consult thereafter. Blood cultures, urine cultures, abx. We will follow exam but neurosurgery indicated if he develops weakness, not at the moment and should improve with abx. Patient also reluctant to proceed with surgery. 06/03/18 Continue to follow exam. PT to ambulate with walker. Blood cultures growing, IR guided bx yesterday, ID following.
[2018-06-03] MEDS: Senna/Docusate Sodium 8.6/50 MG Tablet PO SCH ×2 (08:58→22:44)
[2018-06-03] MEDS: Insulin NovoLOG Aspart Correctional Sugar Inj SQ SCH ×4 (08:59→22:48)
--- NOTE | 2018-06-03 09:03 | IR ---
EXAM DATE: 06/02/2018 4:03 PM EST AGE/SEX: 62 years / Male INDICATIONS: 62-year-old male with history of suspected L5-S1 discitis/osteomyelitis and epidural ab scess. CLINICAL DATA: This is the patient's initial encounter. Patient reports that signs and symptoms have been present for 1 day and indicates a pain score of 10/10. MEDICAL/SURGICAL HISTORY: . Diabetes, High Cholesterol . Back surgery. COMPARISON: No prior exams available for comparison. FLUORO TIME (min): 4.0 IMAGE SERIES: 4 SEDATION TIME (min): 30 MEDICATION(S): 200 mcg fentanyl (Sublimaze) IV 1 mg lorazepam (Ativan) IV DEVICE(s): 11 gauge IVAS bone biopsy needle SPECIMEN(S): Core specimen(s) obtained and submitted to laboratory for pathologic evaluation. . . PROCEDURE: 1. Fluoroscopically guided needle biopsy. 2. Conscious sedation with continuous EKG and Oximetry monitoring. The risks, benefits and alternatives to the procedure were explained and verbal and written consent w as obtained. The site was prepped in sterile fashion. Full sterile technique was used, including cap, mask, steri le gloves and gown and a large sterile sheet. Hand hygiene and 2% chlorhexidine and/or betadine/alco hol prep was utilized per protocol for cutaneous antisepsis. The skin and subcutaneous tissues were infiltrated with local anesthetic solution. L5 vertebral body was localized with fluoroscopic guidance. Skin was prepped and draped in usual ster ile fashion. 1% lidocaine solution was injected to the periosteum. An 11-gauge bone biopsy needle was then advanced through the right pedicle into the L5 vertebral body. 2 core biopsies were subsequentl y obtained. One sample was submitted in formalin for pathology and second sample was submitted for cu ltures. Aspiration was also performed. The needle was then withdrawn and small dressing applied to th e puncture site. Conscious sedation was performed with the prescribed dosages and duration as above in the presence of an independent trained radiology nurse to assist in the monitoring of the patient. EKG and oximetry remained stable throughout the procedure. CONCLUSION: 1. Uncomplicated fluoroscopic guided L5 biopsy, as above. Electronically signed by: Matias Curiel MD 06/03/2018 9:02 AM EST
--- NOTE | 2018-06-03 09:41 | US ---
EXAM DATE: 06/03/2018 9:35 AM EST AGE/SEX: 62 years / Male INDICATIONS: Line related septic thrombophlebitis. CLINICAL DATA: This is the patient's initial encounter. Patient reports that signs and symptoms have been present for 3 days and indicates a pain score of 3/10. MEDICAL/SURGICAL HISTORY: Diabetes. Hypercholesterolemia. Osteomyelitis. Epidural abscess. . Back surgery. COMPARISON: No prior exams available for comparison. FINDINGS: Right Upper Extremity: Nonocclusive thrombus present within the mid to distal basilic vein. The deep venous structures are patent. Specifically, no evidence of brachial, axillary or subclavian DVT. The right jugular vein is patent. Left Upper Extremity: The vessels are compressible and augmentation response is documented. No filli ng defects are seen. The flow is phasic with respiration. Other: None. CONCLUSION: 1. Incompletely occlusive thrombus in the superficial basilic vein in the right arm. 2. No evidence of DVT Electronically signed by: Luca Minor MD 06/03/2018 9:39 AM EST
[2018-06-03] MEDS ORDERED: Pharmacy Ordered Lab Info OTHER ONE ×2 (11:45→23:45)
--- NOTE | 2018-06-03 13:24 | P.PN ---
Physical Exam Vital signs: Vital Signs 06/02/18 16:20 06/02/18 20:00 06/03/18 00:00 Temperature 97.8 F 98.9 F 99.3 F Pulse Rate 99 H 108 H 101 H Respiratory Rate 16 18 18 Blood Pressure 125/64 151/75 H 144/68 H Pulse Oximetry 93 L 97 96 06/03/18 04:00 06/03/18 06:11 06/03/18 06:12 Temperature 98.5 F Pulse Rate 85 98 H 98 H Respiratory Rate 18 19 18 Blood Pressure 137/66 134/64 134/64 Pulse Oximetry 98 99 100 06/03/18 08:00 06/03/18 12:00 Temperature 98.9 F 99.8 F H Pulse Rate 93 H 103 H Respiratory Rate 18 20 Blood Pressure 139/71 136/74 Pulse Oximetry 98 97 Intake & Output 06/02/18 06/03/18 06/03/18 18:59 06:59 18:59 Intake Total 262.5 / 262.5 1462.5 / 1462.5 Output Total 600 / 600 Balance 262.5 / 262.5 1462.5 / 1462.5 -600 / -600 Weight 77.5 kg Intake: IV 262.5 / 262.5 1462.5 / 1462.5 1/2 Normal Saline Inj 1,000 ML 1000 / 1000 @ 75 mls/hr IV.CONT .[id number] [facility] Rx#:[id number] Vancomycin Inj 1,250 MG In NS 262.5 / 262.5 262.5 / 262.5 Inj 250 ML @ 250 mls/hr IV.SIG Q12H [facility] Rx#:[id number] Tazicef Inj 1,000 MG In NS Inj 200 / 200 100 ML @ 200 mls/hr IV.SIG Q8H [facility] Rx#:[id number] Output: Urine 600 / 600 Other: # Incontinent Voids 3 Date of Last Bowel Movement 06/01/18 Results - Labs CBC & Chem 7: 06/03/18 07:15 06/03/18 07:15 Laboratory Results - last 24 hr 06/02/18 06/02/18 06/02/18 13:27 16:11 19:36 WBC RBC Hgb Hct MCV MCH MCHC RDW Plt Count MPV Neut % (Auto) Lymph % (Auto) [place] % (Auto) Eos % (Auto) Baso % (Auto) Neut # (Auto) Lymph # (Auto) [place] # (Auto) Eos # (Auto) Baso # (Auto) WBC Differential Differential Comment Sodium Potassium Chloride Carbon Dioxide Anion Gap BUN Creatinine Estimated GFR POC Glucose 143 H 144 H Random Glucose Calcium Hepatitis A IgM Ab Nonreactive Hep Bs Antigen Nonreactive Hep B Core IgM Ab Nonreactive Hep C IgG Ab Nonreactive 06/02/18 06/03/18 06/03/18 22:34 01:01 06:48 WBC RBC Hgb Hct MCV MCH MCHC RDW Plt Count MPV Neut % (Auto) Lymph % (Auto) [place] % (Auto) Eos % (Auto) Baso % (Auto) Neut # (Auto) Lymph # (Auto) [place] # (Auto) Eos # (Auto) Baso # (Auto) WBC Differential Differential Comment Sodium Potassium Chloride Carbon Dioxide Anion Gap BUN Creatinine Estimated GFR POC Glucose 174 H 108 107 Random Glucose Calcium Hepatitis A IgM Ab Hep Bs Antigen Hep B Core IgM Ab Hep C IgG Ab 06/03/18 06/03/18 06/03/18 07:15 07:15 08:19 WBC 7.9 RBC 3.85 L Hgb 12.0 L Hct 35.0 L MCV 90.8 MCH 31.1 MCHC 34.2 RDW 14.0 Plt Count 416 MPV 7.7 Neut % (Auto) 80.8 H Lymph % (Auto) 10.7 [place] % (Auto) 7.1 Eos % (Auto) 0.1 Baso % (Auto) 1.3 Neut # (Auto) 6.3 Lymph # (Auto) 0.8 L [place] # (Auto) 0.6 Eos # (Auto) 0.0 Baso # (Auto) 0.1 WBC Differential . Differential Comment Auto diff final Sodium 138 Potassium 3.8 Chloride 104 Carbon Dioxide 28.2 Anion Gap 6 BUN 17 Creatinine 0.83 Estimated GFR Greater than 89 POC Glucose 91 Random Glucose 98 Calcium 8.8 Hepatitis A IgM Ab Hep Bs Antigen Hep B Core IgM Ab Hep C IgG Ab 06/03/18 11:28 WBC RBC Hgb Hct MCV MCH MCHC RDW Plt Count MPV Neut % (Auto) Lymph % (Auto) [place] % (Auto) Eos % (Auto) Baso % (Auto) Neut # (Auto) Lymph # (Auto) [place] # (Auto) Eos # (Auto) Baso # (Auto) WBC Differential Differential Comment Sodium Potassium Chloride Carbon Dioxide Anion Gap BUN Creatinine Estimated GFR POC Glucose 107 Random Glucose Calcium Hepatitis A IgM Ab Hep Bs Antigen Hep B Core IgM Ab Hep C IgG Ab Microbiology 06/02/18 15:27 Abscess - Other Fungal Smear - Final No fungal elements seen 06/01/18 18:10 Blood - Peripheral Aerobic Blood Culture - Preliminary gram positive cocci 06/01/18 18:10 Blood - Peripheral Anaerobic Blood Culture - Preliminary Staphylococcus aureus 06/01/18 18:00 Blood - Peripheral Aerobic Blood Culture - Preliminary gram positive cocci 06/01/18 18:00 Blood - Peripheral Anaerobic Blood Culture - Preliminary Staphylococcus aureus 06/02/18 15:27 Abscess - Other Gram Stain - Final - Imaging Impressions Needle Biopsy/Aspiration X-Ray 06/02/18 18:06 CONCLUSION: 1. Uncomplicated fluoroscopic guided L5 biopsy, as above. Venous Doppler Study 06/03/18 00:00 CONCLUSION: 1. Incompletely occlusive thrombus in the superficial basilic vein in the right arm. 2. No evidence of DVT
--- NOTE | 2018-06-03 14:32 | P.PNWCN ---
Wound Care Nurse Consult Description: Patient seen on for wound management of buttock area per consult from Doctor Johansen. Communicated with: RN Art fairdale and Doctor Haily Recommendation: 1.Please cleanse wound to sacrococcygeal area with normal saline or wound cleanser and pat dry. 2.Apply pea sized amount of hydrogel to opened portion of DTI. 3. Apply Calazime skin protectant paste to periwound circumferentially 4. Apply cavilon skin barrier film spray to intact skin before covering wound with bordered gauze. 5. Change daily or PRN if saturated or dislodged. 6. If patient is having multiple loose stools a day and dressing is being changed often, please leave wound open to air and apply Calazime skin protectant paste BID and PRN. 7. Please turn patient from L side to R side every 2 hours and PRN for comfort and offloading of laura prominences. Limit time spent on back to P. T. and meals. 8. Limit layers under patient, use one ultra sorb pad, do not use cotton underpads. 9. Place patient on low airloss bed ordered airapy or K 4 from [facility] when bed arrives. Wound/Pressure Injury - Wound sacrococcygeal area Wound Staging: DTI (opening to full thickness on the R inner buttock) Wound Type: Pressure Injury Is This a Chronic Wound: No Requested from Provider a Wound Care Consult: Yes Length (cm): 5 Width (cm): 6 Depth (cm): 0.1 (~0.1cm) Wound Bed Appearance: Wound presents as an area measuring 5cm x 6 cm with non blanchable purple discoloration or DTI that has opened on the R inner buttock to full thickness, revealing ~40% yellow tissue, ~10% pink tissue and ~50% purple tissue opening measures ~4cm x ~2cm x ~0.1cm.Smaller opening of DTI is also noted on L inner buttock, revealing 100% pink tissue Surrounding Tissue Appearance: Erythema Surrounding Tissue Temperature: Cool Drainage Description: Serosanguinous Drainage Amount: Scant Drainage Odor: No Odor Dressing Status: Changed Cleansing Solution: Saline Topical: hydrogel to opened areas, Calazime skin protectant paste to intact purple discoloration Cover Dressing: Bordered gauze Wound Dressing Change Date: 06/03/18 Wound Margin Description: poorly defined opening DTI - Additional Information Patient seen on for wound management of buttock area, Patient was turned with the moderate assist of RN Art 5 north and junior technical writer to reveal non blanchable purple discoloration or DTI to sacrococcygeal area DTI is opening to full thickness skin loss on R inner buttock. Wound measurements and full description is noted above. Open area within DTI appears dry with scant drainage that sero-sanguinous without odor. Wound was cleansed with normal saline and patted dry. Calazime skin protectant paste was applied to periwound and to intact DTI. Hydrogel was applied to full thickness and partial thickness openings that revealing dry tissue. Skin barrier film was applied before covering wound with bordered gauze. Patient was positioned off bottom with pillow for support.
--- NOTE | 2018-06-03 14:47 | P.PNID ---
Subjective Remarks: is a 62 y/o WM with h/o back pain in 2002 s/p discectomy. He reports being heathy and fully functional prior to this. 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 He now reports back pain for last 3-4 weeks. He denies any constitutional symptoms like fever, chills, night sweats. He denies any other systemic symptoms of GI, or dental origin or skin origin. He denies any injuries to skin or IVDA. 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 When his back pain did not respond to usual measures an MRI spine was done with revealed osteomyelitis and ? small epidural abscess. I do not have access to these images as these were done at [facility] but radiologist will likely be able to review them prior to IR biopsy for which he is scheduled today. Patient was seen by Neurosurgery and IR biopsy recommended. ID consulted for evaluation and Mment of epidural abscess, discitis. Overnight events reviewed No fever No rash No diarrhea sp IR biopsy Antibiotics: Ceftazidime IV Vanco IV Lines: Lines ok Past Medical History: reviewed Allergies/Adverse Reactions: Allergies penicillin G Allergy (Unknown, Verified 06/01/18 19:02) Rash Objective Vital Signs 06/02/18 16:20 06/02/18 20:00 06/03/18 00:00 Temperature 97.8 F 98.9 F 99.3 F Pulse Rate 99 H 108 H 101 H Respiratory Rate 16 18 18 Blood Pressure 125/64 151/75 H 144/68 H Pulse Oximetry 93 L 97 96 06/03/18 04:00 06/03/18 06:11 06/03/18 06:12 Temperature 98.5 F Pulse Rate 85 98 H 98 H Respiratory Rate 18 19 18 Blood Pressure 137/66 134/64 134/64 Pulse Oximetry 98 99 100 06/03/18 08:00 06/03/18 12:00 Temperature 98.9 F 99.8 F H Pulse Rate 93 H 103 H Respiratory Rate 18 20 Blood Pressure 139/71 136/74 Pulse Oximetry 98 97 Intake & Output 06/02/18 06/03/18 06/03/18 18:59 06:59 18:59 Intake Total 262.5 / 262.5 1462.5 / 1462.5 Output Total 600 / 600 Balance 262.5 / 262.5 1462.5 / 1462.5 -600 / -600 Weight 77.5 kg Intake: IV 262.5 / 262.5 1462.5 / 1462.5 1/2 Normal Saline Inj 1,000 ML 1000 / 1000 @ 75 mls/hr IV.CONT .[id number] [facility] Rx#:[id number] Vancomycin Inj 1,250 MG In NS 262.5 / 262.5 262.5 / 262.5 Inj 250 ML @ 250 mls/hr IV.SIG Q12H [facility] Rx#:[id number] Tazicef Inj 1,000 MG In NS Inj 200 / 200 100 ML @ 200 mls/hr IV.SIG Q8H [facility] Rx#:[id number] Output: Urine 600 / 600 Other: # Incontinent Voids 3 Date of Last Bowel Movement 06/01/18 06/02/18 15:27 Abscess - Other Gram Stain - Final 06/02/18 15:27 Abscess - Other Wound Culture - Preliminary Staphylococcus aureus 06/02/18 15:27 Abscess - Other Fungal Smear - Final No fungal elements seen 06/02/18 15:27 Abscess - Other Fungal Culture - Pending 06/01/18 18:10 Blood - Peripheral Aerobic Blood Culture - Preliminary gram positive cocci 06/01/18 18:10 Blood - Peripheral Anaerobic Blood Culture - Preliminary Staphylococcus aureus 06/01/18 18:00 Blood - Peripheral Aerobic Blood Culture - Preliminary gram positive cocci 06/01/18 18:00 Blood - Peripheral Anaerobic Blood Culture - Preliminary Staphylococcus aureus 06/03/18 07:05 Blood - Peripheral Aerobic Blood Culture - Pending 06/03/18 07:05 Blood - Peripheral Anaerobic Blood Culture - Pending 06/03/18 07:15 Blood - Peripheral Aerobic Blood Culture - Pending 06/03/18 07:15 Blood - Peripheral Anaerobic Blood Culture - Pending 06/02/18 15:27 Abscess - Other Acid Fast Bacilli Smear - Pending 06/02/18 15:27 Abscess - Other Mycobacterial Culture - Pending Lab - Hematology Results 06/01/18 06/01/18 06/02/18 18:15 18:15 06:39 WBC 19.5 H 12.3 H RBC 4.47 L 4.01 L Hgb 13.6 12.3 L Hct 40.9 36.9 L MCV 91.4 91.8 MCH 30.4 30.6 MCHC 33.3 33.3 RDW 14.3 14.6 Plt Count 660 H 553 H MPV 8.4 7.5 Neut % (Auto) 91.8 H 87.5 H Lymph % (Auto) 3.9 L 6.1 L [place] % (Auto) 3.9 5.9 Eos % (Auto) 0.0 0.1 Baso % (Auto) 0.4 0.4 Neut # (Auto) 17.9 H 10.8 H Lymph # (Auto) 0.8 L 0.8 L [place] # (Auto) 0.8 0.7 Eos # (Auto) 0.0 0.0 Baso # (Auto) 0.1 0.1 WBC Differential . . Differential Comment Auto diff final Auto diff final ESR 62 H 06/03/18 07:15 WBC 7.9 RBC 3.85 L Hgb 12.0 L Hct 35.0 L MCV 90.8 MCH 31.1 MCHC 34.2 RDW 14.0 Plt Count 416 MPV 7.7 Neut % (Auto) 80.8 H Lymph % (Auto) 10.7 [place] % (Auto) 7.1 Eos % (Auto) 0.1 Baso % (Auto) 1.3 Neut # (Auto) 6.3 Lymph # (Auto) 0.8 L [place] # (Auto) 0.6 Eos # (Auto) 0.0 Baso # (Auto) 0.1 WBC Differential . Differential Comment Auto diff final ESR Lab - Chemistry Results 06/01/18 06/01/18 06/01/18 18:15 18:15 19:22 Sodium 130 L Potassium 4.6 Chloride 98 Carbon Dioxide 23.1 Anion Gap 9 BUN 27 H Creatinine 1.11 Estimated GFR 67 L POC Glucose 160 H Random Glucose 197 H Lactic Acid 2.1 H Calcium 9.6 Magnesium 2.4 Total Bilirubin 0.4 AST 35 ALT 27 Alkaline Phosphatase 60 Total Protein 8.5 H Albumin 2.4 L 06/01/18 06/02/18 06/02/18 21:05 01:04 05:17 Sodium Potassium Chloride Carbon Dioxide Anion Gap BUN Creatinine Estimated GFR POC Glucose 172 H 123 H Random Glucose Lactic Acid 1.2 Calcium Magnesium Total Bilirubin AST ALT Alkaline Phosphatase Total Protein Albumin 06/02/18 06/02/18 06/02/18 06:39 09:15 13:27 Sodium 137 Potassium 3.8 D Chloride 102 Carbon Dioxide 27.1 Anion Gap 8 BUN 22 H Creatinine 0.98 Estimated GFR 78 L POC Glucose 111 H 143 H Random Glucose 113 H Lactic Acid Calcium 8.9 Magnesium Total Bilirubin AST ALT Alkaline Phosphatase Total Protein Albumin 06/02/18 06/02/18 06/03/18 16:11 22:34 01:01 Sodium Potassium Chloride Carbon Dioxide Anion Gap BUN Creatinine Estimated GFR POC Glucose 144 H 174 H 108 Random Glucose Lactic Acid Calcium Magnesium Total Bilirubin AST ALT Alkaline Phosphatase Total Protein Albumin 06/03/18 06/03/18 06/03/18 06:48 07:15 08:19 Sodium 138 Potassium 3.8 Chloride 104 Carbon Dioxide 28.2 Anion Gap 6 BUN 17 Creatinine 0.83 Estimated GFR Greater than 89 POC Glucose 107 91 Random Glucose 98 Lactic Acid Calcium 8.8 Magnesium Total Bilirubin AST ALT Alkaline Phosphatase Total Protein Albumin 06/03/18 11:28 Sodium Potassium Chloride Carbon Dioxide Anion Gap BUN Creatinine Estimated GFR POC Glucose 107 Random Glucose Lactic Acid Calcium Magnesium Total Bilirubin AST ALT Alkaline Phosphatase Total Protein Albumin Imaging: ITS Impressions Chest X-Ray 06/01/18 17:59 CONCLUSION: No evidence of acute cardiopulmonary disease. Needle Biopsy/Aspiration X-Ray 06/02/18 18:06 CONCLUSION: 1. Uncomplicated fluoroscopic guided L5 biopsy, as above. Venous Doppler Study 06/03/18 00:00 CONCLUSION: 1. Incompletely occlusive thrombus in the superficial basilic vein in the right arm. 2. No evidence of DVT Physical Exam: GENERAL: Well-nourished well-developed, not in acute distress SKIN: Cool and dry, no generalized rash HEAD: Atraumatic. Normocephalic. No temporal or scalp tenderness. EYES: Pupils equal round and reactive. Scleral icterus. No injection or drainage. No petechia ENT: Nothing abnormal detected NECK: Trachea midline. Supple, nontender, no meningeal signs. CARDIOVASCULAR: HS audible. RESPIRATORY: Clear to auscultation bilaterally. GASTROINTESTINAL: Abdomen soft nontender. MUSCULOSKELETAL: Extremities without clubbing, cyanosis. NEUROLOGICAL: Alert oriented 3. Psych cooperative Back: decub noted with eschar IV line sites ok. Assessment and Plan - Plan Sepsis on admission (leucocytosis, tachycardia, hypothermia plus source: epidural abscess. Epidural abscess, discitis. GPC bacteremia at time of writing note DM2 on metformin h.o discectomy in past. Recs DC Ceftazidime IV for now. Start Ancef IV for possible MSSA more directed therapy. Continue Vanco IV (target 15-20) If Staph aureus identified as MSSA ok to stop Vanco IV if no MRSA elsewhere. Follow cultures Follow clinical course. case dw RN covering for me this weekend.
--- NOTE | 2018-06-03 15:57 | ECHRPT ---
Indication: POSS SEPSIS, ENDOCARDITIS CONCLUSIONS Normal left ventricular size. Mild concentric left ventricular hypertrophy. The left ventricular systolic function is low normal with an estimated ejection fraction in the rang e of 50- 55%. Trace mitral valve regurgitation. Aortic valve sclerosis is present. Calcification on the NCC. Aortic valve sclerosis is present. Trace aortic valve regurgitation. There is trace tricuspid valve regurgitation. Trace pericardial effusion vs pericardial fat pad. BP: / HR: Rhythm: Sinus MEASUREMENTS (Male / Female) Normal Values Technical Quality:Fair 2D ECHO LV Diastolic Diameter PLAX 3.7 cm 4.2 - 5.9 / 3.9 - 5.3 cm LV Systolic Diameter PLAX 2.9 cm IVS Diastolic Thickness 1.2 cm 0.6 - 1.0 / 0.6 - 0.9 cm LVPW Diastolic Thickness 1.2 cm 0.6 - 1.0 / 0.6 - 0.9 cm LV Relative Wall Thickness 0.7 RV Internal Dim ED PLAX 2.1 cm LVOT Diameter 2.0 cm Aortic Root Diameter 3.5 cm LA Systolic Diameter LX 2.2 cm 3.0 - 4.0 / 2.7 - 3.8 cm DOPPLER AV Peak Velocity 250.0 cm/s AV Peak Gradient 25.0 mmHg AV Mean Gradient 13.0 mmHg AV Velocity Time Integral 35.0 cm LVOT Peak Velocity 116.0 cm/s LVOT Peak Gradient 5.4 mmHg LVOT Velocity Time Integral 17.5 cm AV Area Cont Eq vti 1.6 cm AV Area Cont Eq pk 1.5 cm Mitral E Point Velocity 79.5 cm/s Mitral A Point Velocity 96.7 cm/s Mitral E to A Ratio 0.8 LV E' Lateral Velocity 11.8 cm/s Mitral E to LV E' Lateral Ratio 6.7 LV E' Septal Velocity 7.6 cm/s Mitral E to LV E' Septal Ratio 10.5 TR Peak Velocity 201.0 cm/s TR Peak Gradient 16.0 mmHg PV Peak Velocity 108.0 cm/s PV Peak Gradient 4.7 mmHg FINDINGS LEFT VENTRICLE Normal left ventricular size. Mild concentric left ventricular hypertrophy. The left ventricular systolic function is low normal with an estimated ejection fraction in the rang e of 50- 55%. RIGHT VENTRICLE Normal right ventricular size and systolic function. LEFT ATRIUM The left atrial size is normal. RIGHT ATRIUM The right atrial size is normal. ATRIAL SEPTUM No atrial level shunt is demonstrated by color flow Doppler interrogation. AORTA The aortic root and proximal ascending aorta are normal in size on limited imaging. MITRAL VALVE Trace mitral valve regurgitation. AORTIC VALVE Aortic valve sclerosis is present. Calcification on the NCC. Aortic valve sclerosis is present. Trace aortic valve regurgitation. TRICUSPID VALVE There is trace tricuspid valve regurgitation. PULMONARY VALVE No pulmonary valve regurgitation or stenosis. VESSELS The inferior vena cava was not well visualized. PERICARDIUM Trace pericardial effusion vs pericardial fat pad. Kristofer Saha MD, FACC, FSCAI (Electronically Signed) Final Date:03 June 2018 15:55
[2018-06-03] MEDS ORDERED: ceFAZolin Inj 2,000 MG in Sodium Chlor 0.9% Inj 80 ML IV.SIG SCH (16:00)
--- NOTE | 2018-06-03 16:16 | P.DIET ---
Nutritional Evaluation Type of nutrition evaluation: initial Nutrition consult regarding: Diet Evaluation Nutrition screening: [facility] (wound) Screening comments: 06/03 [facility] for wound Objective - Diagnosis acute osteomylitis of L5 and S1 - Objective Body Mass Index: 22.5 % IBW: 93 (IBW = 184lb) Body Weight Used for Calculations: Actual Energy Needs - Lower Range (kCal/kg): 30 Energy Needs - Upper Range (kCal/kg): 35 Lower Limit kCal/kg (kCals): 2,325 Upper Limit kCal/kg (kCals): 2,713 Lower Limit Protein Factor (Grams per Kg): 1.2 Upper Limit Protein Factor (Grams per Kg): 1.5 Lower Protein Needs (Protein): 93 Upper Protein Needs (Protein): 116 Dietitian Reviewed in Medical Record: Current diet, Curent medications, Intake & Output, Labs, Medical history Diet Order: 1800 [facility] Wound Care Note: R side inner buttock: DTI opening to full thickness, 100% pink tissue seen. Objective Comments: PMH: DM, high chol Assessment Assessment: [facility] for wound received 06/03. Wound care notes reviewed. Pt currently has a DTI opening to full thickness on the R side of inner buttocks, revealing 100% pink tissue. When the wound is staged III, IV or unstagable, RD to recommend Tomás BID to aid in wound healing. Monitor PO intake and wound status. Labs reviewed, dietitian following. Recommendations: 1. When the wound is staged III, IV or unstagable, RD to recommend Tomás BID to aid in wound healing 2. Monitor PO intake and wound status 3. Dietitian following Dietitian to Monitor: Lab values, Intake & Output, Diet tolerance, PO Intake, Wound/skin status, Medical course
[2018-06-03] MEDS: ceFAZolin 2 GM IV IV.SIG SCH ×2 (16:41→23:50)
--- NOTE | 2018-06-03 18:04 | P.PNIM ---
Subjective Interval history: pt had fall last night. overall pain might be a little less Physical Exam Vital signs: Last Vital Signs Temp 99 F 06/03/18 16:00 Pulse 105 H 06/03/18 16:00 Resp 20 06/03/18 16:00 BP 145/68 H 06/03/18 16:00 Pulse Ox 94 L 06/03/18 16:00 Narrative: heart reg lung cta abd s/nt ext no edema Results Labs CBC & Chem 7: 06/03/18 07:15 06/03/18 07:15 Assessment and Plan Plan 62-year-old white male was has a history of back pain back in 2002 where he underwent surgery for discectomy for the last few weeks has had increasing back pain which did not respond to anti-inflammatories and prednisone primary care physician ordered a MRI which revealed an osteomyelitis with a small epidural abscess in his L5-S1 and sent to [place] for evaluation by neurosurgery and admission. Osteomyelitis Epidural abscess gpc bacteremia Osteomyelitis lumbar spine L5-S1 started on ceftazidime and vancomycin consulted infectious disease consult neurosurgery who already evaluated- does not feel surgery is indicated at this time recommending IR biopsy to direct abx treatment. Pt had L5 bx for path and micro on 06/02 echo ordered. wound care for buttock wounds PT eval dvt prophylaxis pain control prn. Diabetes diabetic diet accucheck ACHS with medium dose SSI coverage Progress Note: Quality VTE Deep Vein Thrombosis/Pulmonary Embolism Present on Admission: No
[2018-06-03] MEDS: Morphine Sulfate Inj 2 MG/ML Vial IV.PUSH PRN (22:50)
[2018-06-04] MEDS: Vancomycin Inj 1,250 MG in Sodium Chlor 0.9% Inj 250 ML IV.SIG SCH ×3 (00:23→23:34)
[2018-06-04] MEDS: Morphine Sulfate Inj 2 MG/ML Vial IV.PUSH PRN (05:16)
[2018-06-04] MEDS: Insulin NovoLOG Aspart Correctional Sugar Inj SQ SCH ×4 (07:34→20:46)
[2018-06-04] MEDS: Senna/Docusate Sodium 8.6/50 MG Tablet PO SCH ×2 (08:24→20:49)
[2018-06-04] MEDS: ceFAZolin 2 GM IV IV.SIG SCH ×3 (08:26→23:34)
--- NOTE | 2018-06-04 10:23 | P.PNIM ---
Subjective Interval history: Patient reports continue back pain c/o muscle spasm in his back worse with movement denies fevers/chills Physical Exam Vital signs: Last Vital Signs Temp 98 F 06/04/18 08:00 Pulse 91 H 06/04/18 08:00 Resp 18 06/04/18 08:00 BP 142/75 H 06/04/18 08:00 Pulse Ox 95 06/04/18 08:00 Narrative: heart reg lung cta abd s/nt ext no edema Results Labs CBC & Chem 7: 06/03/18 07:15 06/03/18 07:15 Assessment and Plan Plan 62-year-old white male was has a history of back pain back in 2002 where he underwent surgery for discectomy for the last few weeks has had increasing back pain which did not respond to anti-inflammatories and prednisone primary care physician ordered a MRI which revealed an osteomyelitis with a small epidural abscess in his L5-S1 and sent to [place] for evaluation by neurosurgery and admission. Osteomyelitis Epidural abscess gpc bacteremia WBC 19.5 on admission -> 12.3 (12.3) -> 7.9 (06/03) Osteomyelitis lumbar spine L5-S1 started on ceftazidime and vancomycin consulted infectious disease consult neurosurgery who already evaluated- does not feel surgery is indicated at this time recommending IR biopsy to direct abx treatment. Pt had L5 bx for path and micro on 06/02 Blood cultures: 06/01 staphylococcus aureus 2/4 bottles and gram positive cocci in 2/4 bottles 06/02 Wound culture staphylococcus aureus 06/03 gram positive cocci 4/4 bottles Patient on ceftazidime (06/01 -06/03) cefazolin 2 gm Q8H (06/03 - present) Vanco (06/01 - present) Per ID: If Staph aureus identified as MSSA ok to stop Vanco IV if no MRSA elsewhere. echo 06/03/18: CONCLUSIONS Normal left ventricular size. Mild concentric left ventricular hypertrophy. The left ventricular systolic function is low normal with an estimated ejection fraction in the range of 50-55%. Trace mitral valve regurgitation. Aortic valve sclerosis is present. on the NCC. Aortic valve sclerosis is present. Trace aortic valve regurgitation. There is trace tricuspid valve regurgitation. Trace pericardial effusion vs pericardial fat pad wound care for buttock wounds PT eval and treat dvt prophylaxis pain control prn will add Flexeril for muscle spasms Diabetes diabetic diet accucheck ACHS with medium dose SSI coverage Buttock wound Wound presents as an area measuring 5cm x 6 cm with non blanchable purple discoloration or DTI that has opened on the R inner buttock to full thickness, revealing ~40% yellow tissue, ~10% pink tissue and ~50% purple tissue opening measures ~4cm x ~2cm x ~0.1cm.Smaller opening of DTI is also noted on L inner buttock, revealing 100% pink tissue consult wound care, appreciate input wound care for buttock wounds pressure relief, frequent turning encouraged DVT prophylaxis with SCDs and lovenox Progress Note: Quality VTE Deep Vein Thrombosis/Pulmonary Embolism Present on Admission: No
[2018-06-04] MEDS: Enoxaparin Inj 40 MG/0.4 ML Syringe SQ SCH (12:10)
[2018-06-05] MEDS: Insulin NovoLOG Aspart Correctional Sugar Inj SQ SCH ×4 (08:09→21:00)
[2018-06-05] MEDS: ceFAZolin 2 GM IV IV.SIG SCH ×3 (08:09→23:43)
[2018-06-05] MEDS: Senna/Docusate Sodium 8.6/50 MG Tablet PO SCH ×2 (08:09→21:00)
[2018-06-05] MEDS: Enoxaparin Inj 40 MG/0.4 ML Syringe SQ SCH (08:09)
--- NOTE | 2018-06-05 09:44 | P.PNIM ---
Subjective Interval history: still problems with ambulation pain a little better. Physical Exam Vital signs: Last Vital Signs Temp 97.7 F 06/05/18 08:00 Pulse 77 06/05/18 08:00 Resp 20 06/05/18 08:00 BP 128/65 06/05/18 08:00 Pulse Ox 99 06/05/18 08:00 Narrative: heart reg lung cta abd s/nt ext no edema Results Labs CBC & Chem 7: 06/03/18 07:15 06/03/18 07:15 Assessment and Plan Plan 62-year-old white male was has a history of back pain back in 2002 where he underwent surgery for discectomy for the last few weeks has had increasing back pain which did not respond to anti-inflammatories and prednisone primary care physician ordered a MRI which revealed an osteomyelitis with a small epidural abscess in his L5-S1 and sent to [place] for evaluation by neurosurgery and admission. Osteomyelitis Epidural abscess mssa WBC 19.5 on admission -> 12.3 (12.3) -> 7.9 (06/03) Osteomyelitis lumbar spine L5-S1 started on ceftazidime and vancomycin consulted infectious disease consult neurosurgery who already evaluated- does not feel surgery is indicated at this time recommending IR biopsy to direct abx treatment. Pt had L5 bx for path and micro on 06/02 Blood cultures: 06/01mssa 06/02 L5 cx mssa blood cx 06/03 mssa Patient on ceftazidime (06/01 -06/03) cefazolin 2 gm Q8H (06/03 - present) Vanco (06/01 - 06/05 Per ID: If Staph aureus identified as MSSA ok to stop Vanco IV if no MRSA elsewhere. echo 06/03/18: CONCLUSIONS Normal left ventricular size. Mild concentric left ventricular hypertrophy. The left ventricular systolic function is low normal with an estimated ejection fraction in the range of 50-55%. Trace mitral valve regurgitation. Aortic valve sclerosis is present. on the NCC. Aortic valve sclerosis is present. Trace aortic valve regurgitation. There is trace tricuspid valve regurgitation. Trace pericardial effusion vs pericardial fat pad wound care for buttock wounds PT eval and treat dvt prophylaxis pain control prn Flexeril for muscle spasms stop vancomycin cont cefazolin. discuss with ID tomorrow. ?challenge with oxacillin ...pt gives childhood rash hx to pcn will need to repeat blood cx. persistently positive. Diabetes diabetic diet accucheck ACHS with medium dose SSI coverage Buttock wound Wound presents as an area measuring 5cm x 6 cm with non blanchable purple discoloration or DTI that has opened on the R inner buttock to full thickness, revealing ~40% yellow tissue, ~10% pink tissue and ~50% purple tissue opening measures ~4cm x ~2cm x ~0.1cm.Smaller opening of DTI is also noted on L inner buttock, revealing 100% pink tissue consult wound care, appreciate input wound care for buttock wounds pressure relief, frequent turning encouraged DVT prophylaxis with SCDs and lovenox Progress Note: Quality VTE Deep Vein Thrombosis/Pulmonary Embolism Present on Admission: No
[2018-06-06] MEDS: Insulin NovoLOG Aspart Correctional Sugar Inj SQ SCH ×4 (07:54→21:12)
[2018-06-06] MEDS: ceFAZolin 2 GM IV IV.SIG SCH ×3 (08:23→23:15)
[2018-06-06] MEDS: Senna/Docusate Sodium 8.6/50 MG Tablet PO SCH ×2 (08:28→21:12)
[2018-06-06] MEDS: Enoxaparin Inj 40 MG/0.4 ML Syringe SQ SCH (08:33)
--- NOTE | 2018-06-06 10:13 | P.PNIM ---
Subjective Interval history: Patient offers no new concerns/complaints was able to walk 30 feet x 2 with PT Physical Exam Vital signs: Last Vital Signs Temp 98.6 F 06/06/18 08:00 Pulse 91 H 06/06/18 08:00 Resp 18 06/06/18 08:00 BP 147/75 H 06/06/18 08:00 Pulse Ox 98 06/06/18 08:00 Narrative: heart reg lung cta abd s/nt ext no edema Results Labs CBC & Chem 7: 06/03/18 07:15 06/03/18 07:15 Assessment and Plan Plan 62-year-old white male was has a history of back pain back in 2002 where he underwent surgery for discectomy for the last few weeks has had increasing back pain which did not respond to anti-inflammatories and prednisone primary care physician ordered a MRI which revealed an osteomyelitis with a small epidural abscess in his L5-S1 and sent to [place] for evaluation by neurosurgery and admission. Osteomyelitis Epidural abscess mssa WBC 19.5 on admission -> 12.3 (12.3) -> 7.9 (06/03) Osteomyelitis lumbar spine L5-S1 started on ceftazidime and vancomycin consulted infectious disease consult neurosurgery who already evaluated- does not feel surgery is indicated at this time recommending IR biopsy to direct abx treatment. Pt had L5 bx for path and micro on 06/02 Blood cultures: 06/01mssa 06/02 L5 cx mssa blood cx 06/03 mssa Repeat blood culture 06/06 Patient on ceftazidime (06/01 -06/03) cefazolin 2 gm Q8H (06/03 - present) Vanco (06/01 - 06/05) Per ID: If Staph aureus identified as MSSA ok to stop Vanco IV if no MRSA elsewhere. echo 06/03/18: CONCLUSIONS Normal left ventricular size. Mild concentric left ventricular hypertrophy. The left ventricular systolic function is low normal with an estimated ejection fraction in the range of 50-55%. Trace mitral valve regurgitation. Aortic valve sclerosis is present. on the NCC. Aortic valve sclerosis is present. Trace aortic valve regurgitation. There is trace tricuspid valve regurgitation. Trace pericardial effusion vs pericardial fat pad wound care for buttock wounds PT eval and treat dvt prophylaxis pain control prn Flexeril as needed for muscle spasms stop vancomycin 06/05 cont cefazolin. discuss with ID. ?challenge with oxacillin ...pt gives childhood rash hx to pcn will need to repeat blood cx. persistently positive. repeat Blood cutures 06/06 Diabetes diabetic diet accucheck ACHS with medium dose SSI coverage Buttock wound Wound presents as an area measuring 5cm x 6 cm with non blanchable purple discoloration or DTI that has opened on the R inner buttock to full thickness, revealing ~40% yellow tissue, ~10% pink tissue and ~50% purple tissue opening measures ~4cm x ~2cm x ~0.1cm.Smaller opening of DTI is also noted on L inner buttock, revealing 100% pink tissue consult wound care, appreciate input wound care for buttock wounds pressure relief, frequent turning encouraged DVT prophylaxis with SCDs and lovenox Attending Attestation Patient examined. Assessment and plan formulated with Zoe Martinez PA-C. I agree with the above. mssa bacteremia and L5 osteo mssa. persistent positive blood cx. cefazolin started on 06/03 after 06/03 blood cx drawn recheck blood cx today vanco stopped. discuss cefazolin vs oxacillin with ID. pt had childhood allergy to pcn. if 3days negative then picc line and dc to snf for PT/wound care/iv abx. Progress Note: Quality VTE Deep Vein Thrombosis/Pulmonary Embolism Present on Admission: No
--- NOTE | 2018-06-06 12:59 | P.PNID ---
Subjective Remarks: is a 62 y/o WM with h/o back pain in 2002 s/p discectomy. He reports being heathy and fully functional prior to this. 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 He now reports back pain for last 3-4 weeks. He denies any constitutional symptoms like fever, chills, night sweats. He denies any other systemic symptoms of GI, or dental origin or skin origin. He denies any injuries to skin or IVDA. 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 When his back pain did not respond to usual measures an MRI spine was done with revealed osteomyelitis and ? small epidural abscess. I do not have access to these images as these were done at [facility] but radiologist will likely be able to review them prior to IR biopsy for which he is scheduled today. Patient was seen by Neurosurgery and IR biopsy recommended. ID consulted for evaluation and Mment of epidural abscess, discitis. Overnight events reviewed No fever No rash No diarrhea sp IR biopsy Antibiotics: Ancef IV Lines: Lines ok Past Medical History: reviewed Allergies/Adverse Reactions: Allergies penicillin G Allergy (Unknown, Verified 06/01/18 19:02) Rash Objective Vital Signs 06/05/18 16:00 06/05/18 20:00 06/05/18 23:10 Temperature 98.2 F 98.5 F Pulse Rate 90 79 Respiratory Rate 20 19 18 Blood Pressure 123/61 141/69 H Pulse Oximetry 95 98 06/06/18 00:00 06/06/18 04:00 06/06/18 08:00 Temperature 98.4 F 97.8 F 98.6 F Pulse Rate 80 79 91 H Respiratory Rate 20 17 18 Blood Pressure 134/66 144/71 H 147/75 H Pulse Oximetry 98 96 98 Intake & Output 06/05/18 06/06/18 06/06/18 18:59 06:59 18:59 Intake Total 1600 / 1600 713 / 713 50 / 50 Output Total 1100 / 1100 1000 / 1000 Balance 500 / 500 -287 / -287 50 / 50 Weight 77.4 kg Intake: IV 100 / 100 50 / 50 50 / 50 Ancef 2 GM Premix Inj 2 gm In 100 / 100 50 / 50 50 / 50 50 ml @ 100 mls/hr IV.SIG Q8H [facility] Rx#:[id number] Oral 1500 / 1500 663 / 663 Output: Urine 1100 / 1100 1000 / 1000 Other: # Incontinent Voids 3 Date of Last Bowel Movement 06/04/18 06/04/18 # Bowel Movements 0 06/06/18 07:17 Blood - Peripheral Aerobic Blood Culture - Pending 06/06/18 07:17 Blood - Peripheral Anaerobic Blood Culture - Pending 06/06/18 07:23 Blood - Peripheral Aerobic Blood Culture - Pending 06/06/18 07:23 Blood - Peripheral Anaerobic Blood Culture - Pending 06/03/18 07:05 Blood - Peripheral Aerobic Blood Culture - Final Staphylococcus aureus 06/03/18 07:05 Blood - Peripheral Anaerobic Blood Culture - Final Staphylococcus aureus 06/03/18 07:15 Blood - Peripheral Aerobic Blood Culture - Final Staphylococcus aureus 06/03/18 07:15 Blood - Peripheral Anaerobic Blood Culture - Final Staphylococcus aureus 06/01/18 18:10 Blood - Peripheral Aerobic Blood Culture - Final Staphylococcus aureus 06/01/18 18:10 Blood - Peripheral Anaerobic Blood Culture - Final Staphylococcus aureus 06/01/18 18:00 Blood - Peripheral Aerobic Blood Culture - Final Staphylococcus aureus 06/01/18 18:00 Blood - Peripheral Anaerobic Blood Culture - Final Staphylococcus aureus 06/02/18 15:27 Abscess - Other Gram Stain - Final 06/02/18 15:27 Abscess - Other Wound Culture - Final Staphylococcus aureus 06/02/18 15:27 Abscess - Other Acid Fast Bacilli Smear - Final No acid fast bacilli seen 06/02/18 15:27 Abscess - Other Mycobacterial Culture - Pending 06/02/18 15:27 Abscess - Other Fungal Smear - Final No fungal elements seen 06/02/18 15:27 Abscess - Other Fungal Culture - Pending Lab - Chemistry Results 06/04/18 06/04/18 06/05/18 17:30 19:58 07:32 POC Glucose 126 H 145 H 118 H 06/05/18 06/05/18 06/05/18 12:28 16:35 21:00 POC Glucose 161 H 141 H 148 H 06/06/18 06/06/18 07:47 11:24 POC Glucose 126 H 142 H Imaging: ITS Impressions Chest X-Ray 06/01/18 17:59 CONCLUSION: No evidence of acute cardiopulmonary disease. Needle Biopsy/Aspiration X-Ray 06/02/18 18:06 CONCLUSION: 1. Uncomplicated fluoroscopic guided L5 biopsy, as above. Venous Doppler Study 06/03/18 00:00 CONCLUSION: 1. Incompletely occlusive thrombus in the superficial basilic vein in the right arm. 2. No evidence of DVT Physical Exam: GENERAL: Well-nourished well-developed, not in acute distress SKIN: Cool and dry, no generalized rash HEAD: Atraumatic. Normocephalic. No temporal or scalp tenderness. EYES: Pupils equal round and reactive. Scleral icterus. No injection or drainage. No petechia ENT: Nothing abnormal detected NECK: Trachea midline. Supple, nontender, no meningeal signs. CARDIOVASCULAR: HS audible. RESPIRATORY: Clear to auscultation bilaterally. GASTROINTESTINAL: Abdomen soft nontender. MUSCULOSKELETAL: Extremities without clubbing, cyanosis. NEUROLOGICAL: Alert oriented 3. Psych cooperative Back: decub noted with eschar IV line sites ok. Assessment and Plan - Plan Sepsis on admission (leucocytosis, tachycardia, hypothermia plus source: epidural abscess. Epidural abscess, discitis. GPC bacteremia at time of writing note DM2 on metformin h.o discectomy in past. Recs Continue Ancef IV for MSSA more directed therapy. Follow cultures Follow clinical course. Hepatitis negative panel. Await repeat Blood cultures negative at [address] PICC line and provide DC recs. Dw patient denies any cuts, bruises, blood draws, hospitalizations, procedures preceding this illness. case altagracia DONAHUE
--- NOTE | 2018-06-06 16:22 | P.PNNS ---
Subjective Interval history: ambulated with PT down the halls today, c/o back pain and generalized weakness. requesting back brace to see if helps with pain. Physical Exam Vital signs: Vital Signs 06/05/18 20:00 06/05/18 23:10 06/06/18 00:00 Temperature 98.5 F 98.4 F Pulse Rate 79 80 Respiratory Rate 19 18 20 Blood Pressure 141/69 H 134/66 Pulse Oximetry 98 98 06/06/18 04:00 06/06/18 08:00 Temperature 97.8 F 98.6 F Pulse Rate 79 91 H Respiratory Rate 17 18 Blood Pressure 144/71 H 147/75 H Pulse Oximetry 96 98 Intake & Output 06/05/18 06/06/18 06/06/18 18:59 06:59 18:59 Intake Total 1600 / 1600 713 / 713 50 / 50 Output Total 1100 / 1100 1000 / 1000 Balance 500 / 500 -287 / -287 50 / 50 Weight 77.4 kg Intake: IV 100 / 100 50 / 50 50 / 50 Ancef 2 GM Premix Inj 2 gm In 100 / 100 50 / 50 50 / 50 50 ml @ 100 mls/hr IV.SIG Q8H [facility] Rx#:[id number] Oral 1500 / 1500 663 / 663 Output: Urine 1100 / 1100 1000 / 1000 Other: # Incontinent Voids 3 Date of Last Bowel Movement 06/04/18 06/04/18 # Bowel Movements 0 Narrative: A&O x 3 CN II-XII intact Motor 5/5 UE. LE test to full strength in ip, q, ham, gas, ta, ehl Patient able to stand with assist Assessment and Plan - Plan 62yoM with new osteomyelitis at L5/S1, progressive back pain x 3 weeks, neurologically intact testing to full strength. Plan: Given intact exam, recommend IR/CT guided biopsy to target therapy. Admission to Medicine. ID consult thereafter. Blood cultures, urine cultures, abx. We will follow exam but neurosurgery indicated if he develops weakness, not at the moment and should improve with abx. Patient also reluctant to proceed with surgery. 06/03/18 Continue to follow exam. PT to ambulate with walker. Blood cultures growing, IR guided bx yesterday, ID following. 06/06: cont abx - mgt per ID will get corset brace for comfort when ambulating
[2018-06-07] MEDS: Insulin NovoLOG Aspart Correctional Sugar Inj SQ SCH ×4 (08:22→22:34)
[2018-06-07] MEDS: ceFAZolin 2 GM IV IV.SIG SCH ×3 (08:22→23:59)
[2018-06-07] MEDS: Enoxaparin Inj 40 MG/0.4 ML Syringe SQ SCH (08:23)
[2018-06-07] MEDS: Senna/Docusate Sodium 8.6/50 MG Tablet PO SCH ×2 (08:24→22:34)
--- NOTE | 2018-06-07 09:34 | P.PNIM ---
Subjective Interval history: asking for only po pain meds stop iv morphine Physical Exam Vital signs: Last Vital Signs Temp 97.8 F 06/07/18 08:00 Pulse 85 06/07/18 08:00 Resp 20 06/07/18 08:00 BP 134/72 06/07/18 08:00 Pulse Ox 96 06/07/18 08:00 Narrative: heart reg lung cta abd s/nt ext no edema Results Labs CBC & Chem 7: 06/03/18 07:15 06/03/18 07:15 Assessment and Plan Plan 62-year-old white male was has a history of back pain back in 2002 where he underwent surgery for discectomy for the last few weeks has had increasing back pain which did not respond to anti-inflammatories and prednisone primary care physician ordered a MRI which revealed an osteomyelitis with a small epidural abscess in his L5-S1 and sent to [place] for evaluation by neurosurgery and admission. Osteomyelitis Epidural abscess mssa WBC 19.5 on admission -> 12.3 (12.3) -> 7.9 (06/03) Osteomyelitis lumbar spine L5-S1 started on ceftazidime and vancomycin consulted infectious disease consult neurosurgery who already evaluated- does not feel surgery is indicated at this time recommending IR biopsy to direct abx treatment. Pt had L5 bx for path and micro on 06/02 Blood cultures: 06/01mssa 06/02 L5 cx mssa blood cx 06/03 mssa Repeated blood culture 06/06 pending. Patient on ceftazidime (06/01 -06/03) cefazolin 2 gm Q8H (06/03 - present) Vanco (06/01 - 06/05) Per ID: If Staph aureus identified as MSSA ok to stop Vanco IV if no MRSA elsewhere. echo 06/03/18: CONCLUSIONS Normal left ventricular size. Mild concentric left ventricular hypertrophy. The left ventricular systolic function is low normal with an estimated ejection fraction in the range of 50-55%. Trace mitral valve regurgitation. Aortic valve sclerosis is present. on the NCC. Aortic valve sclerosis is present. Trace aortic valve regurgitation. There is trace tricuspid valve regurgitation. Trace pericardial effusion vs pericardial fat pad wound care for buttock wounds PT eval and treat dvt prophylaxis pain control prn Flexeril as needed for muscle spasms stop vancomycin 06/05 cont cefazolin. discussed with ID. repeat Blood cutures 06/06: if neg x 72hr then picc and dc to snf. Diabetes diabetic diet accucheck ACHS with medium dose SSI coverage Buttock wound Wound presents as an area measuring 5cm x 6 cm with non blanchable purple discoloration or DTI that has opened on the R inner buttock to full thickness, revealing ~40% yellow tissue, ~10% pink tissue and ~50% purple tissue opening measures ~4cm x ~2cm x ~0.1cm.Smaller opening of DTI is also noted on L inner buttock, revealing 100% pink tissue consult wound care, appreciate input wound care for buttock wounds pressure relief, frequent turning encouraged DVT prophylaxis with SCDs and lovenox Progress Note: Quality VTE Deep Vein Thrombosis/Pulmonary Embolism Present on Admission: No
[2018-06-07] MEDS ORDERED: Diatrizoate Meglum/Diatrizoate Sod Liq 9 ML UDC PO ONE (13:37)
[2018-06-07] MEDS ORDERED: Gentamicin Consult Pharmacy 1 EACH OTHER SCH (14:00)
--- NOTE | 2018-06-07 15:15 | P.PNID ---
Subjective Remarks: is a 62 y/o WM with h/o back pain in 2002 s/p discectomy. He reports being heathy and fully functional prior to this. 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 He now reports back pain for last 3-4 weeks. He denies any constitutional symptoms like fever, chills, night sweats. He denies any other systemic symptoms of GI, or dental origin or skin origin. He denies any injuries to skin or IVDA. 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 When his back pain did not respond to usual measures an MRI spine was done with revealed osteomyelitis and ? small epidural abscess. I do not have access to these images as these were done at [facility] but radiologist will likely be able to review them prior to IR biopsy for which he is scheduled today. Patient was seen by Neurosurgery and IR biopsy recommended. ID consulted for evaluation and Mment of epidural abscess, discitis. Overnight events reviewed No fever No rash No diarrhea sp IR biopsy Antibiotics: Ancef IV Lines: Lines ok Past Medical History: reviewed Allergies/Adverse Reactions: Allergies penicillin G Allergy (Unknown, Verified 06/01/18 19:02) Rash Objective Vital Signs 06/06/18 16:00 06/06/18 20:00 06/06/18 20:52 Temperature 98.2 F 99.6 F Pulse Rate 88 92 H Respiratory Rate 18 18 18 Blood Pressure 134/72 140/73 Pulse Oximetry 99 97 06/07/18 00:00 06/07/18 04:32 06/07/18 08:00 Temperature 98.6 F 97.8 F Pulse Rate 86 85 Respiratory Rate 18 18 20 Blood Pressure 126/67 134/72 Pulse Oximetry 94 L 96 06/07/18 12:00 Temperature 97.9 F Pulse Rate 108 H Respiratory Rate 20 Blood Pressure 127/72 Pulse Oximetry 98 Intake & Output 06/06/18 06/07/18 06/07/18 18:59 06:59 18:59 Intake Total 580 / 580 713 / 713 50 / 50 Output Total 500 / 500 900 / 900 Balance 80 / 80 -187 / -187 50 / 50 Weight 75.7 kg Intake: IV 100 / 100 50 / 50 50 / 50 Ancef 2 GM Premix Inj 2 gm In 100 / 100 50 / 50 50 / 50 50 ml @ 100 mls/hr IV.SIG Q8H [facility] Rx#:[id number] Oral 480 / 480 663 / 663 Output: Urine 500 / 500 900 / 900 Other: Date of Last Bowel Movement 06/04/18 06/07/18 # Bowel Movements 0 06/06/18 07:17 Blood - Peripheral Aerobic Blood Culture - Preliminary gram positive cocci 06/06/18 07:17 Blood - Peripheral Anaerobic Blood Culture - Preliminary No growth in 1 day 06/06/18 07:23 Blood - Peripheral Aerobic Blood Culture - Preliminary No growth in 1 day 06/06/18 07:23 Blood - Peripheral Anaerobic Blood Culture - Preliminary No growth in 1 day 06/03/18 07:05 Blood - Peripheral Aerobic Blood Culture - Final Staphylococcus aureus 06/03/18 07:05 Blood - Peripheral Anaerobic Blood Culture - Final Staphylococcus aureus 06/03/18 07:15 Blood - Peripheral Aerobic Blood Culture - Final Staphylococcus aureus 06/03/18 07:15 Blood - Peripheral Anaerobic Blood Culture - Final Staphylococcus aureus 06/01/18 18:10 Blood - Peripheral Aerobic Blood Culture - Final Staphylococcus aureus 06/01/18 18:10 Blood - Peripheral Anaerobic Blood Culture - Final Staphylococcus aureus 06/01/18 18:00 Blood - Peripheral Aerobic Blood Culture - Final Staphylococcus aureus 06/01/18 18:00 Blood - Peripheral Anaerobic Blood Culture - Final Staphylococcus aureus Lab - Chemistry Results 06/05/18 06/05/18 06/06/18 16:35 21:00 07:47 POC Glucose 141 H 148 H 126 H 06/06/18 06/06/18 06/06/18 11:24 16:44 20:59 POC Glucose 142 H 104 155 H 06/07/18 06/07/18 08:13 11:52 POC Glucose 128 H 110 Imaging: ITS Impressions Chest X-Ray 06/01/18 17:59 CONCLUSION: No evidence of acute cardiopulmonary disease. Needle Biopsy/Aspiration X-Ray 06/02/18 18:06 CONCLUSION: 1. Uncomplicated fluoroscopic guided L5 biopsy, as above. Venous Doppler Study 06/03/18 00:00 CONCLUSION: 1. Incompletely occlusive thrombus in the superficial basilic vein in the right arm. 2. No evidence of DVT Physical Exam: GENERAL: Well-nourished well-developed, not in acute distress SKIN: Cool and dry, no generalized rash HEAD: Atraumatic. Normocephalic. No temporal or scalp tenderness. EYES: Pupils equal round and reactive. Scleral icterus. No injection or drainage. No petechia ENT: Nothing abnormal detected NECK: Trachea midline. Supple, nontender, no meningeal signs. CARDIOVASCULAR: HS audible. RESPIRATORY: Clear to auscultation bilaterally. GASTROINTESTINAL: Abdomen soft nontender. MUSCULOSKELETAL: Extremities without clubbing, cyanosis. NEUROLOGICAL: Alert oriented 3. Psych cooperative Back: decub noted with eschar IV line sites ok. Assessment and Plan - Plan Sepsis on admission (leucocytosis, tachycardia, hypothermia plus source: epidural abscess. Epidural abscess, discitis. GPC bacteremia at time of writing note DM2 on metformin h.o discectomy in past Penicillin allergy as a child during episode of throat infection. Tolerated Ancef. Recs Continue Ancef IV for MSSA more directed therapy. Add Genta IV for synergy dosing. Please order repeat blood cultures 24 hrs from addition of first dose of Genta IV. Cardiology consult for PALMIRA. altagracia Frye. Check CT C/A/P with IV contrast to look for distant foci of infection that may need drainage. Follow cultures Follow clinical course. Hepatitis negative panel. Await repeat Blood cultures negative at [address] PICC line and provide DC recs. Dw patient and his today he denies any cuts, bruises, blood draws, hospitalizations, procedures preceding this illness. Pts reports they have been lifting and moving heavy boxes prior to this admission. dw patient and his plan for the day including [place], CT C/A/P. case altagracia DONAUHE
--- NOTE | 2018-06-07 16:31 | P.CONCA ---
History of Present Illness Service: cardiology Consult date: 06/07/18 Requesting Physician: Lonnie Johansen Reason for Consult: PALMIRA Primary Care Provider: Vlad Richard Chief Complaint: back pain History of Present Illness: is a 62 y/o gentleman with h/o back pain in 2002 s/p discectomy. He was admitted on 06/01/18 with reported back pain for last 3-4 weeks. When his back pain did not respond to usual measures an MRI spine was done with revealed osteomyelitis and ? small epidural abscess/ discitis. He denies any constitutional symptoms like fever, chills, night sweats. He denies any other systemic symptoms of GI, or dental origin or skin origin. He denies any injuries to skin or IVDA. Patient was seen by Neurosurgery and L5 IR biopsy completed on 06/02. He has had persistently positive blood cultures while on antibiotics per ID and thus ID now requests PALMIRA evaluation for valvular vegetations. Of note, echocardiogram on 06/03 revealed no significant valvular disease, valvular vegetations and normal LV systolic function EF 60-65%. ECG is NSR with no AVB or significant ST-T wave abnormality. Patient has no history of esophageal stricture or dysphagia Review of Systems All other systems reviewed negative except as stated in HPI PMFSH - History History Provided By: Patient - Medical History Medical History: Medical History (Last Reviewed 06/06/18 @ 09:14 by Jacqui Rivers) Diabetes High cholesterol - Surgical History Surgical History: Surgical History (Last Reviewed 06/06/18 @ 09:21 by Jacqui Rivers) Previous back surgery - Tobacco History Second Hand Smoke Exposure: No Smoking Status: Never smoker - Alcohol History How Often Do You Have a Drink Containing Alcohol: Never - Substance Use History Substance History: No History of Abuse - Travel History Recent Travel in the [place] Within the Last 8 Weeks: No Recent Travel Out of the Country Within the Last 8 Weeks: No - Immunization History Tetanus Immunization: <5 Years Hx Influenza Vaccine This Season: No Medications and Allergies Active Medications: Active Medications Acetaminophen (Tylenol) 650 mg PO Q4H PRN PRN Reason: Temp > 100.4 Hydrocodone Bitart/Acetaminophen ([place] 5/325) 1 tab PO Q4H PRN PRN Reason: PAIN SCALE 1 TO 5 Last Admin: 06/07/18 08:24 Dose: 1 tab Hydrocodone Bitart/Acetaminophen ([place] 10/325) 1 tab PO Q4H PRN PRN Reason: PAIN 6-10;IF UNABLE TO TAKE PO Last Admin: 06/07/18 12:22 Dose: 1 tab Cyclobenzaprine HCl (Flexeril) 5 mg PO Q8H PRN PRN Reason: MUSCLE SPASM Dextrose (D50w Vial) 50 ml IV.PUSH UNSCH PRN PRN Reason: PER HYPOGLYCEMIA PROTOCOL Enoxaparin Sodium (Lovenox Inj) 40 mg SQ DAILY [facility] Last Admin: 06/07/18 08:23 Dose: 40 mg Glucagon (Glucagon Inj) 1 mg OTHER PRN PRN PRN Reason: for Hypoglycemia Protocol Cefazolin Sodium/Dextrose (Ancef 2 Gm Premix Inj) 2 gm in 50 mls @ 100 mls/hr IV.SIG Q8H [facility] Last Admin: 06/07/18 15:59 Dose: 100 mls/hr Pharmacy Profile Note (Gentamicin Consult Pharmacy) 0 mls @ 0 mls/hr OTHER UNSCH [facility] Gentamicin Sulfate/Sodium Chloride (Gentamicin/Ns 80 Mg Premix) 100 mls @ 200 mls/hr IV.SIG Q8H [facility] Insulin Aspart (Novolog Insulin Correctional Sugar Inj) 0 unit SQ ACHS [facility]; Protocol Last Admin: 06/07/18 12:19 Dose: Not Given Lactulose (Lactulose Liq) 30 ml PO DAILY PRN PRN Reason: SEVERE CONSITIPATION Last Admin: 06/07/18 07:01 Dose: 30 ml Miscellaneous (Pill Splitter) 1 each OTHER UNSCH [facility] Miscellaneous Information ([facility] Ordered Lab Info) 0 each OTHER ONCE ONE Stop: 06/08/18 16:46 Ondansetron HCl (Zofran Inj) 4 mg IV.PUSH Q6H PRN PRN Reason: NAUSEA OR VOMITING Last Admin: 06/03/18 23:17 Dose: 4 mg Senna/Docusate Sodium (Juany-Colace) 1 tab PO BID [facility] Last Admin: 06/07/18 08:24 Dose: Not Given Allergies Allergy/AdvReac Type Severity Reaction Status Date / Time penicillin G Allergy Unknown Rash Verified 06/01/18 19:02 Home Medications Medication Instructions Recorded Confirmed Type Unable to Obtain Home Meds 06/01/18 06/01/18 History Exam Vital signs: Vital Signs 06/06/18 20:00 06/06/18 20:52 06/07/18 00:00 Temperature 99.6 F 98.6 F Pulse Rate 92 H 86 Respiratory Rate 18 18 18 Blood Pressure 140/73 126/67 Pulse Oximetry 97 94 L 06/07/18 04:32 06/07/18 08:00 06/07/18 12:00 Temperature 97.8 F 97.9 F Pulse Rate 85 108 H Respiratory Rate 18 20 20 Blood Pressure 134/72 127/72 Pulse Oximetry 96 98 Intake & Output 06/06/18 06/07/18 06/07/18 18:59 06:59 18:59 Intake Total 580 / 580 713 / 713 50 / 50 Output Total 500 / 500 900 / 900 Balance 80 / 80 -187 / -187 50 / 50 Weight 75.7 kg Intake: IV 100 / 100 50 / 50 50 / 50 Ancef 2 GM Premix Inj 2 gm In 100 / 100 50 / 50 50 / 50 50 ml @ 100 mls/hr IV.SIG Q8H [facility] Rx#:[id number] Oral 480 / 480 663 / 663 Output: Urine 500 / 500 900 / 900 Other: Date of Last Bowel Movement 06/04/18 06/07/18 # Bowel Movements 0 Narrative: GENERAL: comfortable appearing SKIN: Warm and dry. HEAD: Atraumatic. Normocephalic. EYES: Pupils equal and round. No scleral icterus. No injection or drainage. ENT: No nasal bleeding or discharge. Mucous membranes pink and moist. NECK: Trachea midline. No JVD. CARDIOVASCULAR: Regular rate and rhythm. RESPIRATORY: No accessory muscle use. Clear to auscultation. Breath sounds equal bilaterally. GASTROINTESTINAL: Abdomen soft, non-tender, nondistended. MUSCULOSKELETAL: Extremities without clubbing, cyanosis, or edema. No obvious deformities. NEUROLOGICAL: Awake and alert. No obvious cranial nerve deficits. Normal speech. PSYCHIATRIC: Appropriate mood and affect; insight and judgment normal. Results 06/03/18 07:15 06/03/18 07:15 Intake and Output 06/07/18 06/07/18 06/07/18 06:59 14:59 22:59 Intake Total 713 / 713 50 / 50 Output Total 900 / 900 Balance -187 / -187 50 / 50 Intake: IV 50 / 50 50 / 50 Ancef 2 GM Premix Inj 2 gm In 50 / 50 50 / 50 50 ml @ 100 mls/hr IV.SIG Q8H [facility] Rx#:[id number] Oral 663 / 663 Output: Urine 900 / 900 Other: Date of Last Bowel Movement 06/04/18 06/07/18 Weight 75.7 kg Assessment and Plan - Plan Assessment: L5 discitis sepsis persistent MSSA bacteremia on Gentamicin and Ancef per ID Recommendations: Per ID request, will perform PALMIRA tomorrow with anesthesiology support NPO after 11:30pm today rest per primary team
[2018-06-07] MEDS: Gentamicin/NS 80 mg Premix 100 ML IV.SIG SCH (18:09)
--- NOTE | 2018-06-07 19:10 | CT ---
EXAM DATE: 06/07/2018 7:05 PM EST AGE/SEX: 62 years / Male INDICATIONS: Pneumona CLINICAL DATA: This is the patient's initial encounter. Patient reports that signs and symptoms have been present for 1 day and indicates a pain score of 5/10. MEDICAL/SURGICAL HISTORY: Diabetes. . back surgery RADIATION DOSE: 5.2 CTDI (mGy) ; Combined studies COMPARISON: No prior exams available for comparison. TECHNIQUE: Multiple contiguous axial images were obtained through the chest during bolus infusion of 80 ml Omnipaque 350 (iohexol) nonionic water-soluble contrast as a cumulative dose for multiple exa ms. Images were obtained in suspended respiration using multiple row detector helical technique. U sing automated exposure control and adjustment of the mA and/or kV according to patient size, radiati on dose was kept as low as reasonably achievable to obtain optimal diagnostic quality images. DICOM format image data is available electronically for review and comparison. FINDINGS: Lung: No focal parenchymal abnormalities. Pleura: No effusion, significant pleural thickening or pneumothorax. Mediastinum: Heart is unremarkable without pericardial effusion.No evidence of mediastinal or hilar adenopathy. Osseous Structures: No abnormal focal lytic or blastic bony lesions. Soft Tissues: Soft tissues are unremarkable. No significant axillary adenopathy. Other: Visulaized upper abdomen is unremarkable. CONCLUSION: 1. Unremarkable chest CT examination. Specifically, no evidence for pneumonia as questioned.. Electronically signed by: Matias uCriel MD 06/07/2018 7:09 PM EST
--- NOTE | 2018-06-07 19:17 | CT ---
EXAM DATE: 06/07/2018 7:11 PM EST AGE/SEX: 62 years / Male INDICATIONS: Abscess septic emboli to vital organs CLINICAL DATA: This is the patient's initial encounter. Patient reports that signs and symptoms have been present for 1 day and indicates a pain score of 8/10. MEDICAL/SURGICAL HISTORY: Diabetes. . Back surgery ORAL CONTRAST: Prescribed oral contrast ingested. RADIATION DOSE: 5.2 CTDI (mGy) ; Combined studies COMPARISON: No prior exams available for comparison. TECHNIQUE: Multiple contiguous axial images were obtained through the abdomen and pelvis following b olus infusion of 80 ml Omnipaque 350 (iohexol) nonionic water-soluble contrast as a cumulative dose for multiple exams. Prescribed oral contrast ingested. Using automated exposure control and adjustm ent of the mA and/or kV according to patient size, radiation dose was kept as low as reasonably achie vable to obtain optimal diagnostic quality images. DICOM format image data is available electronical ly for review and comparison. FINDINGS: Lower Lungs: The visualized lower lungs are clear. Liver: The liver has a homogeneous density without space-occupying lesion. There is no dilation of th e biliary tree. Spleen: Homogeneous density without enlargement. Pancreas: Unremarkable without mass or calcification. Kidneys: Normal in size and shape. No evidence of mass or hydronephrosis. With a given history patie nt is subtle inhomogeneity involving the upper pole of the right kidney and the inferior aspect of th e right kidney could be small focal areas of infection. Both areas are very subtle. The left kidney is unremarkable. Adrenal Glands: Unremarkable. Aorta: Small abdominal aortic aneurysm. Bowel/Mesentery: The bowel loops are grossly unremarkable. The cecum and sigmoid colon have a normal configuration. Abdominal Wall: Intact. Retroperitoneum: No evidence of adenopathy in the retrocrural, para-aortic, or deep pelvic regions. Bladder: Contours are smooth. Reproductive Organs: No abnormal masses or calcifications seen. Inguinal: The inguinal region is unremarkable without evidence of adenopathy. Bony Structures: Unremarkable. CONCLUSION: 1. Questionable abnormality involves the enhanced right kidney. There are some areas of mild decreas ed perfusion in the upper pole in the posterolateral right kidney mentioned in light of the given his tory. They are both subtle areas. The rest of the study is unremarkable except for small abdominal a ortic aneurysm Electronically signed by: Gabe Duarte MD 06/07/2018 7:16 PM EST
[2018-06-08] MEDS: Gentamicin/NS 80 mg Premix 100 ML IV.SIG SCH ×3 (00:45→17:24)
[2018-06-08] MEDS ORDERED: fentaNYL Citrate Inj 100 MCG/2 ML Ampul ONE (08:08)
--- NOTE | 2018-06-08 10:05 | ECHRPT ---
Indication: SEPSIS ENDOCARDITIS CONCLUSIONS Normal left ventricular size and wall thickness. The left ventricular systolic function is normal wi th an estimated ejection fraction in the range of 60-65%. Left ventricular diastolic function parameters a re normal. Aortic valve sclerosis is present. Small, non-mobile hyperechoic structure on the Left /Non-coronary cusps most consistent with calcification along with a thin, mobile structure at the cusp tip that may represent a Lambl's excre scence, however small vegetation cannot be excluded. Trace aortic valve regurgitation. BP: / HR: Rhythm: Sinus Technical Quality:Good Medications Propofol per anesthesiology Complications There were no complications prior to, during or in recovery from the transesophag eal echocardiogram.. Proc. Components The patient was brought to the diagnostic imaging area in a fasting state after o btaining an informed consent. The patient was premedicated with IV Versed and IV Fentanyl. The glass calibrator ior pharynx was sprayed with Cetacaine spray and the patient was administered viscous Xylocaine 2 %. The PALMIRA probe was passed into the posterior pharynx , mid-esophagus, distal esophagus, and gastric fundus. PALMIRA was performed at multiple levels. The patient tolerated the procedure well and there were no complications. The patient was transferred to the floor in satisfactory condition.. FINDINGS LEFT VENTRICLE Normal left ventricular size and wall thickness. The left ventricular systolic function is normal wi th an estimated ejection fraction in the range of 60-65%. Left ventricular diastolic function parameters a re normal. No regional wall motion abnormalities are present. RIGHT VENTRICLE Normal right ventricular size and systolic function. LEFT ATRIUM The left atrial size is normal. RIGHT ATRIUM The right atrial size is normal. ATRIAL APPENDAGES Normal left atrial appendage size with no evidence of thrombus formation. ATRIAL SEPTUM Normal atrial septal thickness without atrial level shunting by limited color doppler interrogation. AORTA The aortic root and proximal ascending aorta are normal in size on limited imaging. MITRAL VALVE Structurally normal mitral valve. No mitral valve stenosis or regurgitation. AORTIC VALVE Trileaflet aortic valve. Aortic valve sclerosis is present. Small, non-mobile hyperechoic structure on the Left /Non-coronary cusps most consistent with calcification along with a thin, mobile structure at the cusp tip that may represent a Lambl's excre scence, however small vegetation cannot be excluded. Trace aortic valve regurgitation. No aortic valve stenosis. TRICUSPID VALVE Structurally normal tricuspid valve. No tricuspid valve stenosis or regurgitation. VESSELS No pulmonary valve regurgitation or stenosis. Devin Peterson (Electronically Signed) Final Date:08 June 2018 10:04
[2018-06-08] MEDS: Insulin NovoLOG Aspart Correctional Sugar Inj SQ SCH ×4 (10:17→20:56)
[2018-06-08] MEDS: Enoxaparin Inj 40 MG/0.4 ML Syringe SQ SCH (10:22)
[2018-06-08] MEDS: ceFAZolin 2 GM IV IV.SIG SCH ×3 (10:22→23:43)
[2018-06-08] MEDS: Senna/Docusate Sodium 8.6/50 MG Tablet PO SCH ×2 (10:23→20:47)
--- NOTE | 2018-06-08 11:57 | P.PNIM ---
Subjective Interval history: doing ok. Physical Exam Vital signs: Last Vital Signs Temp 97.6 F 06/08/18 10:00 Pulse 102 H 06/08/18 10:00 Resp 18 06/08/18 11: BP 107/66 06/08/18 10:00 Pulse Ox 97 06/08/18 10:00 Narrative: heart reg lung cta abd s/nt ext no edema Results Labs CBC & Chem 7: 06/03/18 07:15 06/03/18 07:15 Assessment and Plan Plan 62-year-old white male was has a history of back pain back in 2002 where he underwent surgery for discectomy for the last few weeks has had increasing back pain which did not respond to anti-inflammatories and prednisone primary care physician ordered a MRI which revealed an osteomyelitis with a small epidural abscess in his L5-S1 and sent to [place] for evaluation by neurosurgery and admission. Osteomyelitis Epidural abscess mssa WBC 19.5 on admission -> 12.3 (12.3) -> 7.9 (06/03) Osteomyelitis lumbar spine L5-S1 started on ceftazidime and vancomycin consulted infectious disease consult neurosurgery who already evaluated- does not feel surgery is indicated at this time recommending IR biopsy to direct abx treatment. Pt had L5 bx for path and micro on 06/02 Blood cultures: 06/01mssa 06/02 L5 cx mssa blood cx 06/03 mssa Repeated blood culture 06/06 pending. Patient on ceftazidime (06/01 -06/03) cefazolin 2 gm Q8H (06/03 - present) Vanco (06/01 - 06/05) Per ID: If Staph aureus identified as MSSA ok to stop Vanco IV if no MRSA elsewhere. echo 06/03/18: CONCLUSIONS Normal left ventricular size. Mild concentric left ventricular hypertrophy. The left ventricular systolic function is low normal with an estimated ejection fraction in the range of 50-55%. Trace mitral valve regurgitation. Aortic valve sclerosis is present. on the NCC. Aortic valve sclerosis is present. Trace aortic valve regurgitation. There is trace tricuspid valve regurgitation. Trace pericardial effusion vs pericardial fat pad wound care for buttock wounds PT eval and treat dvt prophylaxis pain control prn Flexeril as needed for muscle spasms stopped vancomycin 06/05 cont cefazolin. discussed with ID. repeat Blood cutures 06/06: still growing staph. Pt started on gentamycin on 06/[address] chest/abdomen/pelvis on 06/07 remarkable only for ?reduced perfusion to areas in right kidny PALMIRA today will plan for snf plan for picc once 72hr neg cx. Diabetes diabetic diet accucheck ACHS with medium dose SSI coverage Buttock wound Wound presents as an area measuring 5cm x 6 cm with non blanchable purple discoloration or DTI that has opened on the R inner buttock to full thickness, revealing ~40% yellow tissue, ~10% pink tissue and ~50% purple tissue opening measures ~4cm x ~2cm x ~0.1cm.Smaller opening of DTI is also noted on L inner buttock, revealing 100% pink tissue consult wound care, appreciate input wound care for buttock wounds pressure relief, frequent turning encouraged DVT prophylaxis with SCDs and lovenox Progress Note: Quality VTE Deep Vein Thrombosis/Pulmonary Embolism Present on Admission: No
[2018-06-08] MEDS ORDERED: Morphine Inj 4 MG/ML Vial IV.PUSH PRN (14:00)
[2018-06-08] MEDS ORDERED: Pharmacy Ordered Lab Info OTHER ONE (16:45)
[2018-06-09] MEDS: Gentamicin/NS 80 mg Premix 100 ML IV.SIG SCH ×2 (00:24→14:16)
[2018-06-09] MEDS: Insulin NovoLOG Aspart Correctional Sugar Inj SQ SCH ×4 (08:08→20:34)
[2018-06-09] MEDS: ceFAZolin 2 GM IV IV.SIG SCH ×2 (09:30→16:49)
--- NOTE | 2018-06-09 10:15 | P.PNIM ---
Subjective Interval history: Pt complains of continued pain in his lower back and reports that the pain is keeping him from ambulating He is moving his bowels Pt seems somewhat down today. Reports some financial concerns with this hospitalization Physical Exam Vital signs: Last Vital Signs Temp 99.0 F 06/09/18 08:00 Pulse 89 06/09/18 08:00 Resp 20 06/09/18 08:00 BP 127/63 06/09/18 08:00 Pulse Ox 95 06/09/18 08:00 Narrative: General: NAD, AAOx3 Cardiac: Regular Chest: CTA Abd: +BS, soft, ND/NT Ext: No edema Results Labs CBC & Chem 7: 06/14/18 05:43 06/14/18 05:43 Imaging Chest X-Ray 06/01/18 17:59 CONCLUSION: No evidence of acute cardiopulmonary disease. Needle Biopsy/Aspiration X-Ray 06/02/18 18:06 CONCLUSION: 1. Uncomplicated fluoroscopic guided L5 biopsy, as above. Venous Doppler Study 06/03/18 00:00 CONCLUSION: 1. Incompletely occlusive thrombus in the superficial basilic vein in the right arm. 2. No evidence of DVT Abdomen/Pelvis CT 06/07/18 00:00 CONCLUSION: 1. Questionable abnormality involves the enhanced right kidney. There are some areas of mild decreased perfusion in the upper pole in the posterolateral right kidney mentioned in light of the given history. They are both subtle areas. The rest of the study is unremarkable except for small abdominal aortic aneurysm Chest CT 06/07/18 00:00 CONCLUSION: 1. Unremarkable chest CT examination. Specifically, no evidence for pneumonia as questioned.. Assessment and Plan Plan 62-year-old white male was has a history of back pain back and previously underwent surgery in 2002 for discectomy. He was admitted with complaints of increasing back pain for the last few weeks which did not respond to anti- inflammatories and prednisone primary care physician ordered a MRI which revealed an osteomyelitis with a small epidural abscess in his L5-S1 and was sent to [place] for evaluation by neurosurgery and admission. Osteomyelitis Epidural abscess MSSA - WBC 19.5 on admission -> 12.3 (12.3) -> 7.9 (06/03) - Osteomyelitis lumbar spine L5-S1 started on ceftazidime and vancomycin - Appreciate consult from infectious disease - Appreciate consult from neurosurgery who does not feel surgery is indicated at this time, and recommended IR biopsy to direct abx treatment. - Pt had L5 bx for path and micro on 06/02 - Blood cultures: - 06/01 with MSSA - 06/02 the L5 bx cx with MSSA - 06/03 with MSSA - 06/06 with MSSA - 06/08 are pending. - Patient was on on ceftazidime (06/01 -06/03) and Vanco (06/01 - 06/05). Per ID : If Staph aureus identified as MSSA ok to stop Vanco IV if no MRSA elsewhere. - Abx changed to cefazolin 2 gm Q8H (06/03 - present) and pt started on Gentamicin on 06/07 per ID - 2D echo 06/03/18: - Normal left ventricular size. - Mild concentric left ventricular hypertrophy. - The left ventricular systolic function is low normal with an estimated ejection fraction in the range of 50-55%. - Trace mitral valve regurgitation. - Aortic valve sclerosis is present. - Trace aortic valve regurgitation. - There is trace tricuspid valve regurgitation. - Trace pericardial effusion vs pericardial fat pad - CT chest/abdomen/pelvis on 06/07 remarkable only for ?reduced perfusion to areas in right kidney - PALMIRA (06/08/18): - Normal left ventricular size and wall thickness. - The left ventricular systolic function is normal with an estimated ejection fraction in the range of 60-65%. - Left ventricular diastolic function parameters are normal. - Aortic valve sclerosis is present. - Small, non-mobile hyperechoic structure on the Left /Non-coronary cusps most consistent with calcification along with a thin, mobile structure at the cusp tip that may represent a Lambl's excrescence, however small vegetation cannot be excluded. - Trace aortic valve regurgitation. - Plan for PICC line once 72hr neg cx. - PT following. - Pain control is still an issue despite being on [place] 5/325 and 10/325 PRN as well as Morphine IV PRN. - Add Fentanyl patch 25mcg and monitor closely - Flexeril as needed for muscle spasms Diabetes - Diabetic diet - Accu check ACHS with medium dose SSI coverage Buttock wound - Wound presents as an area measuring 5cm x 6 cm with non blanchable purple discoloration or DTI that has opened on the R inner buttock to full thickness, revealing ~40% yellow tissue, ~10% pink tissue and ~50% purple tissue opening measures ~4cm x ~2cm x ~0.1cm.Smaller opening of DTI is also noted on L inner buttock, revealing 100% pink tissue - Appreciate consult from wound care and recommendations: 1.Please cleanse wound to sacrococcygeal area with normal saline or wound cleanser and pat dry. 2. Apply pea sized amount of hydrogel to opened portion of DTI. 3. Apply Calazime skin protectant paste to periwound circumferentially 4. Apply cavilon skin barrier film spray to intact skin before covering wound with bordered gauze. 5. Change daily or PRN if saturated or dislodged. 6. If patient is having multiple loose stools a day and dressing is being changed often, please leave wound open to air and apply Calazime skin protectant paste BID and PRN. 7. Please turn patient from L side to R side every 2 hours and PRN for comfort and offloading of laura prominences. Limit time spent on back to P. T. and meals. 8. Limit layers under patient, use one ultra sorb pad, do not use cotton underpads. 9. Place patient on low airloss bed ordered airapy or K 4 from [facility] when bed arrives. DVT prophylaxis with SCDs and Lovenox Attending Attestation The exam, history, and the medical decision-making described in the above note were completed with the assistance of the mid-level provider. I reviewed and agree with the findings presented. I attest that I had a [id number] encounter with the patient on the same day, and personally performed and documented my assessment and findings in the medical record. Patient examined. Assessment and plan formulated with Lora Gregg PA-C. I agree with the above. Progress Note: Quality VTE Deep Vein Thrombosis/Pulmonary Embolism Present on Admission: No
[2018-06-09] MEDS ORDERED: Gentamicin Inj 80 MG in Sodium Chlor 0.9% Inj 100 ML IV.SIG SCH (11:00)
[2018-06-09] MEDS: Enoxaparin Inj 40 MG/0.4 ML Syringe SQ SCH (11:08)
[2018-06-09] MEDS: Senna/Docusate Sodium 8.6/50 MG Tablet PO SCH ×2 (11:08→20:33)
--- NOTE | 2018-06-09 14:46 | P.PNID ---
Subjective Remarks: is a 62 y/o WM with h/o back pain in 2002 s/p discectomy. He reports being heathy and fully functional prior to this. 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 He now reports back pain for last 3-4 weeks. He denies any constitutional symptoms like fever, chills, night sweats. He denies any other systemic symptoms of GI, or dental origin or skin origin. He denies any injuries to skin or IVDA. 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 When his back pain did not respond to usual measures an MRI spine was done with revealed osteomyelitis and ? small epidural abscess. I do not have access to these images as these were done at [facility] but radiologist will likely be able to review them prior to IR biopsy for which he is scheduled today. Patient was seen by Neurosurgery and IR biopsy recommended. ID consulted for evaluation and Mment of epidural abscess, discitis. Overnight events reviewed No fever No rash No diarrhea sp IR biopsy Antibiotics: Ancef IV Lines: Lines ok Past Medical History: reviewed Allergies/Adverse Reactions: Allergies penicillin G Allergy (Unknown, Verified 06/01/18 19:02) Rash Objective Vital Signs 06/08/18 16:00 06/08/18 17:20 06/08/18 20:00 Temperature 98.6 F 98.7 F Pulse Rate 94 H 92 H Respiratory Rate 20 18 18 Blood Pressure 132/66 126/72 Pulse Oximetry 98 94 L 06/09/18 00:00 06/09/18 04:00 06/09/18 08:00 Temperature 98.9 F 98.9 F 99.0 F Pulse Rate 89 91 H 89 Respiratory Rate 18 18 20 Blood Pressure 121/63 124/59 L 127/63 Pulse Oximetry 97 94 L 95 06/09/18 11:21 06/09/18 12:00 Temperature 98.0 F Pulse Rate 96 H Respiratory Rate 18 20 Blood Pressure 145/71 H Pulse Oximetry 98 Intake & Output 06/08/18 06/09/18 06/09/18 18:59 06:59 18:59 Intake Total 300 / 300 150 / 150 50 / 50 Output Total 400 / 400 2 / 2 600 / 600 Balance -100 / -100 148 / 148 -550 / -550 Weight 2.183 kg Intake: IV 300 / 300 150 / 150 50 / 50 Gentamicin/NS 80 mg Premix 100 200 / 200 100 / 100 ML @ 200 mls/hr IV.SIG Q8H [facility] Rx#:[id number] Ancef 2 GM Premix Inj 2 gm In 100 / 100 50 / 50 50 / 50 50 ml @ 100 mls/hr IV.SIG Q8H [facility] Rx#:[id number] Output: Urine 400 / 400 2 / 2 600 / 600 Other: # Voids 2 Date of Last Bowel Movement 06/08/18 06/02/18 15:27 Abscess - Other Fungal Smear - Final No fungal elements seen 06/02/18 15:27 Abscess - Other Fungal Culture - Preliminary No growth in 1 week 06/02/18 15:27 Abscess - Other Acid Fast Bacilli Smear - Final No acid fast bacilli seen 06/02/18 15:27 Abscess - Other Mycobacterial Culture - Preliminary No growth in 1 week 06/08/18 15:55 Blood - Peripheral Aerobic Blood Culture - Preliminary No growth in 1 day 06/08/18 15:55 Blood - Peripheral Anaerobic Blood Culture - Preliminary No growth in 1 day 06/08/18 15:50 Blood - Peripheral Aerobic Blood Culture - Preliminary No growth in 1 day 06/08/18 15:50 Blood - Peripheral Anaerobic Blood Culture - Preliminary No growth in 1 day 06/06/18 07:17 Blood - Peripheral Aerobic Blood Culture - Final Staphylococcus aureus 06/06/18 07:17 Blood - Peripheral Anaerobic Blood Culture - Preliminary No growth in 3 days 06/06/18 07:23 Blood - Peripheral Aerobic Blood Culture - Preliminary No growth in 3 days 06/06/18 07:23 Blood - Peripheral Anaerobic Blood Culture - Preliminary No growth in 3 days Lab - Chemistry Results 06/07/18 06/07/18 06/08/18 16:25 20:16 10:10 Creatinine Estimated GFR POC Glucose 122 H 133 H 96 06/08/18 06/08/18 06/08/18 11:37 12:44 16:38 Creatinine 0.94 Estimated GFR 81 L POC Glucose 137 H 127 H 06/08/18 06/08/18 06/09/18 20:14 20:56 08:58 Creatinine Estimated GFR POC Glucose 158 H 135 H 110 06/09/18 12:21 Creatinine Estimated GFR POC Glucose 123 H Imaging: ITS Impressions Chest X-Ray 06/01/18 17:59 CONCLUSION: No evidence of acute cardiopulmonary disease. Needle Biopsy/Aspiration X-Ray 06/02/18 18:06 CONCLUSION: 1. Uncomplicated fluoroscopic guided L5 biopsy, as above. Venous Doppler Study 06/03/18 00:00 CONCLUSION: 1. Incompletely occlusive thrombus in the superficial basilic vein in the right arm. 2. No evidence of DVT Abdomen/Pelvis CT 06/07/18 00:00 CONCLUSION: 1. Questionable abnormality involves the enhanced right kidney. There are some areas of mild decreased perfusion in the upper pole in the posterolateral right kidney mentioned in light of the given history. They are both subtle areas. The rest of the study is unremarkable except for small abdominal aortic aneurysm Chest CT 06/07/18 00:00 CONCLUSION: 1. Unremarkable chest CT examination. Specifically, no evidence for pneumonia as questioned.. Physical Exam: GENERAL: Well-nourished well-developed, not in acute distress SKIN: Cool and dry, no generalized rash HEAD: Atraumatic. Normocephalic. No temporal or scalp tenderness. EYES: Pupils equal round and reactive. Scleral icterus. No injection or drainage. No petechia ENT: Nothing abnormal detected NECK: Trachea midline. Supple, nontender, no meningeal signs. CARDIOVASCULAR: HS audible. RESPIRATORY: Clear to auscultation bilaterally. GASTROINTESTINAL: Abdomen soft nontender. MUSCULOSKELETAL: Extremities without clubbing, cyanosis. NEUROLOGICAL: Alert oriented 3. Psych cooperative Back: decub noted with eschar IV line sites ok. Assessment and Plan - Plan Sepsis on admission (leucocytosis, tachycardia, hypothermia plus source: epidural abscess. Epidural abscess, discitis. GPC bacteremia at time of writing note DM2 on metformin h.o discectomy in past Penicillin allergy as a child during episode of throat infection. Tolerated Ancef. Recs Continue Ancef IV for MSSA more directed therapy. Continue Genta IV for synergy dosing. PALMIRA findings and Kidney septic emboli discussed with patient. Follow cultures Follow clinical course. Await repeat Blood cultures negative at [address] PICC line and provide DC recs. case dw Dr Schmitz
[2018-06-09] MEDS: Gentamicin Inj 80 MG in Sodium Chlor 0.9% Inj 100 ML IV.SIG SCH (18:24)
[2018-06-10] MEDS: Gentamicin Inj 80 MG in Sodium Chlor 0.9% Inj 100 ML IV.SIG SCH (00:04)
[2018-06-10] MEDS: ceFAZolin 2 GM IV IV.SIG SCH ×4 (00:04→23:52)
[2018-06-10] MEDS ORDERED: Pharmacy Ordered Lab Info OTHER ONE ×2 (08:30→10:00)
[2018-06-10] MEDS: Insulin NovoLOG Aspart Correctional Sugar Inj SQ SCH ×4 (09:08→21:25)
[2018-06-10] MEDS: Senna/Docusate Sodium 8.6/50 MG Tablet PO SCH ×2 (09:09→20:49)
[2018-06-10] MEDS: Enoxaparin Inj 40 MG/0.4 ML Syringe SQ SCH (09:09)
[2018-06-10] MEDS: Gentamicin/NS 80 mg Premix 100 ML IV.SIG SCH ×2 (10:25→17:01)
--- NOTE | 2018-06-10 13:12 | P.DIET ---
Nutritional Evaluation Type of nutrition evaluation: follow-up Nutrition consult regarding: Diet Evaluation Nutrition screening: MDC (wound) Screening comments: 06/03 MDC for wound Subjective Subjective Comments: Eating 75-100% Objective - Diagnosis acute osteomylitis of L5 and S1 - Objective % IBW: 93 (IBW = 184lb) Body Weight Used for Calculations: Actual Energy Needs - Lower Range (kCal/kg): 30 Energy Needs - Upper Range (kCal/kg): 35 Lower Limit kCal/kg (kCals): 2,325 Upper Limit kCal/kg (kCals): 2,713 Lower Limit Protein Factor (Grams per Kg): 1.2 Upper Limit Protein Factor (Grams per Kg): 1.5 Lower Protein Needs (Protein): 93 Upper Protein Needs (Protein): 116 Dietitian Reviewed in Medical Record: Current diet, Curent medications, Intake & Output, Labs, Medical history, Wound/DTI Diet Order: 1800 ADA Wound Care Note: See WOCN dated 06/03 Assessment Assessment: Pt remains at high nutrition risk 2' to high nutritional needs for healing. Will send Yoel Mays for added nutrition. Each 8 oz serving provides 220 kcals and 10 gms protein. Pt may also benefit form a daily MVI/min. Labs wts, wound notes and clinical course reviewed. Recommendations: Diet as ordered Yoel Mays tid Please order MVI/min q day Dietitian to Monitor: Lab values, Supplement acceptance, Intake & Output, Diet tolerance, Weight change, PO Intake, Wound/skin status, Medical course
--- NOTE | 2018-06-10 17:22 | P.PNIM ---
Subjective Interval history: Pain is better controlled today with Fentanyl patch Pt able to ambulate better He is moving his bowels and urinating without difficulty Physical Exam Vital signs: Last Vital Signs Temp 98.0 F 06/10/18 15:57 Pulse 96 H 06/10/18 15:57 Resp 16 06/10/18 15:57 BP 100/63 06/10/18 15:57 Pulse Ox 96 06/10/18 15:57 Narrative: General: NAD, AAOx3 Cardiac: Regular Chest: CTA Abd: +BS, soft, ND/NT Ext: No edema Results Labs CBC & Chem 7: 06/14/18 05:43 06/14/18 05:43 Assessment and Plan Plan 62-year-old white male was has a history of back pain back and previously underwent surgery in 2002 for discectomy. He was admitted with complaints of increasing back pain for the last few weeks which did not respond to anti- inflammatories and prednisone primary care physician ordered a MRI which revealed an osteomyelitis with a small epidural abscess in his L5-S1 and was sent to [facility] for evaluation by neurosurgery and admission. Osteomyelitis Epidural abscess MSSA - WBC 19.5 on admission -> 12.3 (12.3) -> 7.9 (06/03) - Osteomyelitis lumbar spine L5-S1 started on ceftazidime and vancomycin - Appreciate consult from infectious disease - Appreciate consult from neurosurgery who does not feel surgery is indicated at this time, and recommended IR biopsy to direct abx treatment. - Pt had L5 bx for path and micro on 06/02 - Blood cultures: - 06/01 with MSSA - 06/02 the L5 bx cx with MSSA - 06/03 with MSSA - 06/06 with MSSA - 06/08 are No growth x 2 days - Patient was on on ceftazidime (06/01 -06/03) and Vanco (06/01 - 06/05). Per ID : If Staph aureus identified as MSSA ok to stop Vanco IV if no MRSA elsewhere. - Abx changed to cefazolin 2 gm Q8H (06/03 - present) and pt started on Gentamicin on 06/07 per ID - 2D echo 06/03/18: - Normal left ventricular size. - Mild concentric left ventricular hypertrophy. - The left ventricular systolic function is low normal with an estimated ejection fraction in the range of 50-55%. - Trace mitral valve regurgitation. - Aortic valve sclerosis is present. - Trace aortic valve regurgitation. - There is trace tricuspid valve regurgitation. - Trace pericardial effusion vs pericardial fat pad - CT chest/abdomen/pelvis on 06/07 remarkable only for ?reduced perfusion to areas in right kidney - [place]MIRA (06/08/18): - Normal left ventricular size and wall thickness. - The left ventricular systolic function is normal with an estimated ejection fraction in the range of 60-65%. - Left ventricular diastolic function parameters are normal. - Aortic valve sclerosis is present. - Small, non-mobile hyperechoic structure on the Left /Non-coronary cusps most consistent with calcification along with a thin, mobile structure at the cusp tip that may represent a Lambl's excrescence, however small vegetation cannot be excluded. - Trace aortic valve regurgitation. - Plan for PICC line once 72hr neg cx. - PT following. - Pain has improved with Fentanyl patch 25mcg started on 06/09 and monitor closely - [place] 5/325 and 10/325 PRN as well as Morphine IV PRN. Can start to wean back on PRN pain meds in AM - Flexeril as needed for muscle spasms Diabetes - Diabetic diet - Accu check ACHS with medium dose SSI coverage Buttock wound - Wound presents as an area measuring 5cm x 6 cm with non blanchable purple discoloration or DTI that has opened on the R inner buttock to full thickness, revealing ~40% yellow tissue, ~10% pink tissue and ~50% purple tissue opening measures ~4cm x ~2cm x ~0.1cm.Smaller opening of DTI is also noted on L inner buttock, revealing 100% pink tissue - Appreciate consult from wound care and recommendations: 1.Please cleanse wound to sacrococcygeal area with normal saline or wound cleanser and pat dry. 2. Apply pea sized amount of hydrogel to opened portion of DTI. 3. Apply Calazime skin protectant paste to periwound circumferentially 4. Apply cavilon skin barrier film spray to intact skin before covering wound with bordered gauze. 5. Change daily or PRN if saturated or dislodged. 6. If patient is having multiple loose stools a day and dressing is being changed often, please leave wound open to air and apply Calazime skin protectant paste BID and PRN. 7. Please turn patient from L side to R side every 2 hours and PRN for comfort and offloading of laura prominences. Limit time spent on back to P. T. and meals. 8. Limit layers under patient, use one ultra sorb pad, do not use cotton underpads. 9. Place patient on low airloss bed ordered airapy or K 4 from [facility] when bed arrives. DVT prophylaxis with SCDs and Lovenox Attending Attestation The exam, history, and the medical decision-making described in the above note were completed with the assistance of the mid-level provider. I reviewed and agree with the findings presented. I attest that I had a [id number] encounter with the patient on the same day, and personally performed and documented my assessment and findings in the medical record. Patient examined. Assessment and plan formulated with Lora Gregg PA-C. I agree with the above. Progress Note: Quality VTE Deep Vein Thrombosis/Pulmonary Embolism Present on Admission: No
[2018-06-11] MEDS: Gentamicin/NS 80 mg Premix 100 ML IV.SIG SCH ×3 (01:30→16:58)
[2018-06-11] MEDS: Enoxaparin Inj 40 MG/0.4 ML Syringe SQ SCH (08:15)
[2018-06-11] MEDS: Senna/Docusate Sodium 8.6/50 MG Tablet PO SCH ×2 (08:15→22:22)
[2018-06-11] MEDS: Insulin NovoLOG Aspart Correctional Sugar Inj SQ SCH ×2 (08:16→12:33)
[2018-06-11] MEDS: ceFAZolin 2 GM IV IV.SIG SCH ×3 (08:16→23:27)
[2018-06-11 08:31] LABS: Baso % (Auto) 0.4 % (0.0-2.0); Eos % (Auto) 0.5 % (0.0-4.0); Hematocrit 34.6 % (39.0-51.0); Hemoglobin 11.7 gm/dL (13.0-17.0); Lymph # (Auto) 1.1 th/mm3 (1.0-4.8); Lymph % (Auto) 18.5 % (9.0-44.0); Mean Corpuscular HGB Conc 33.8 % (32.0-36.0); Mean Corpuscular Hemoglobin 30.1 pg (27.0-34.0); Mean Corpuscular Volume 89.3 fL (80.0-100.0); Mean Platelet Volume 7.1 fL (7.0-11.0); Mono # (Auto) 0.5 th/mm3 (0.0-0.9); Mono % (Auto) 7.6 % (0.0-8.0); Neut # (Auto) 4.3 th/mm3 (1.8-7.7); Platelet Count 309 th/mm3 (150-450); Red Blood Count 3.87 mil/mm3 (4.50-5.90); White Blood Count 5.9 th/mm3 (4.0-11.0)
[2018-06-11 09:00] LABS: Anion Gap 7 meq/L (5-15); Blood Urea Nitrogen 11 mg/dL (7-18); Calcium 9.6 mg/dL (8.5-10.1); Carbon Dioxide 28.1 meq/L (21.0-32.0); Chloride 98 meq/L (98-107); Glomerular Filtration Rate Greater Than 89 mL/min (>89); Glucose,Random 122 mg/dL (74-106); Potassium 3.9 meq/L (3.5-5.1); Sodium 133 meq/L (136-145)
--- NOTE | 2018-06-11 13:42 | P.PNIM ---
Subjective Interval history: Pt has NO new complaints. No fever. Pt remains weak. Pt c/o LBP controlled with current narcotic regimen. Physical Exam Vital signs: Last Vital Signs Temp 98.9 F 06/11/18 12:00 Pulse 87 06/11/18 12:00 Resp 20 06/11/18 12:00 BP 137/69 06/11/18 12:00 Pulse Ox 97 06/11/18 12:00 Narrative: General: NAD, AAOx3 Cardiac: Regular Chest: CTA Abd: +BS, soft, ND/NT Ext: No edema Results Labs CBC & Chem 7: 06/14/18 05:43 06/14/18 05:43 Assessment and Plan Plan 62-year-old white male was has a history of back pain back and previously underwent surgery in 2002 for discectomy. He was admitted with complaints of increasing back pain for the last few weeks which did not respond to anti- inflammatories and prednisone primary care physician ordered a MRI which revealed an osteomyelitis with a small epidural abscess in his L5-S1 and was sent to [facility] for evaluation by neurosurgery and admission. Osteomyelitis Epidural abscess MSSA - WBC 19.5 on admission -> 12.3 (12.3) -> 7.9 (06/03) - Osteomyelitis lumbar spine L5-S1 started on ceftazidime and vancomycin - Appreciate consult from infectious disease - Appreciate consult from neurosurgery who does not feel surgery is indicated at this time, and recommended IR biopsy to direct abx treatment. - Pt had L5 bx for path and micro on 06/02 - Blood cultures: - 06/01 with MSSA - 06/02 the L5 bx cx with MSSA - 06/03 with MSSA - 06/06 with MSSA - 06/08 are No growth x 3 days - Patient was on on ceftazidime (06/01 -06/03) and Vanco (06/01 - 06/05). Per ID : If Staph aureus identified as MSSA ok to stop Vanco IV if no MRSA elsewhere. - Abx changed to cefazolin 2 gm Q8H (06/03 - present) and pt started on Gentamicin on 06/07 per ID - 2D echo 06/03/18: - Normal left ventricular size. - Mild concentric left ventricular hypertrophy. - The left ventricular systolic function is low normal with an estimated ejection fraction in the range of 50-55%. - Trace mitral valve regurgitation. - Aortic valve sclerosis is present. - Trace aortic valve regurgitation. - There is trace tricuspid valve regurgitation. - Trace pericardial effusion vs pericardial fat pad - CT chest/abdomen/pelvis on 06/07 remarkable only for ?reduced perfusion to areas in right kidney - [place]A (06/08/18): - Normal left ventricular size and wall thickness. - The left ventricular systolic function is normal with an estimated ejection fraction in the range of 60-65%. - Left ventricular diastolic function parameters are normal. - Aortic valve sclerosis is present. - Small, non-mobile hyperechoic structure on the Left /Non-coronary cusps most consistent with calcification along with a thin, mobile structure at the cusp tip that may represent a Lambl's excrescence, however small vegetation cannot be excluded. - Trace aortic valve regurgitation. - Place PICC today - Discharge to SNF 06/12 - continue Ancef for 6 week duration from negative blood Cx - F/u with ID, Dr. Mackenzie Hoffman outpt in 2 weeks - PT following. - Pain has improved with Fentanyl patch 25mcg started on 06/09 and monitor closely - [place] 5/325 and 10/325 PRN as well as Morphine IV PRN. Can start to wean back on PRN pain meds in AM - Flexeril as needed for muscle spasms Diabetes - Diabetic diet - change accuchecks to prn Buttock wound - Wound presents as an area measuring 5cm x 6 cm with non blanchable purple discoloration or DTI that has opened on the R inner buttock to full thickness, revealing ~40% yellow tissue, ~10% pink tissue and ~50% purple tissue opening measures ~4cm x ~2cm x ~0.1cm.Smaller opening of DTI is also noted on L inner buttock, revealing 100% pink tissue - Appreciate consult from wound care and recommendations: 1.Please cleanse wound to sacrococcygeal area with normal saline or wound cleanser and pat dry. 2. Apply pea sized amount of hydrogel to opened portion of DTI. 3. Apply Calazime skin protectant paste to periwound circumferentially 4. Apply cavilon skin barrier film spray to intact skin before covering wound with bordered gauze. 5. Change daily or PRN if saturated or dislodged. 6. If patient is having multiple loose stools a day and dressing is being changed often, please leave wound open to air and apply Calazime skin protectant paste BID and PRN. 7. Please turn patient from L side to R side every 2 hours and PRN for comfort and offloading of laura prominences. Limit time spent on back to P. T. and meals. 8. Limit layers under patient, use one ultra sorb pad, do not use cotton underpads. 9. Place patient on low airloss bed ordered airapy or K 4 from [facility] when bed arrives. DVT prophylaxis with SCDs and Lovenox Progress Note: Quality VTE Deep Vein Thrombosis/Pulmonary Embolism Present on Admission: No
[2018-06-11] MEDS: Acetaminophen 325 MG Tablet PO PRN (23:27)
[2018-06-12] MEDS: Gentamicin/NS 80 mg Premix 100 ML IV.SIG SCH ×3 (01:50→17:10)
[2018-06-12] MEDS: ceFAZolin 2 GM IV IV.SIG SCH ×3 (08:14→23:58)
[2018-06-12] MEDS: Enoxaparin Inj 40 MG/0.4 ML Syringe SQ SCH (08:14)
[2018-06-12] MEDS: Senna/Docusate Sodium 8.6/50 MG Tablet PO SCH ×2 (08:14→21:14)
[2018-06-12] MEDS ORDERED: Gentamicin/NS 80 mg Premix 100 ML IV.SIG SCH (15:00)
[2018-06-12] MEDS: Acetaminophen 325 MG Tablet PO PRN (15:08)
--- NOTE | 2018-06-12 15:16 | P.PNIM ---
Subjective Interval history: No new complaints. Physical Exam Vital signs: Last Vital Signs Temp 102.1 F H 06/12/18 15:03 Pulse 102 H 06/12/18 15:03 Resp 18 06/12/18 15:03 BP 134/72 06/12/18 15:03 Pulse Ox 99 06/12/18 15:03 Narrative: General: NAD, AAOx3 Cardiac: Regular Chest: CTA Abd: +BS, soft, ND/NT Ext: No edema Results Labs CBC & Chem 7: 06/14/18 05:43 06/14/18 05:43 Assessment and Plan Plan 62-year-old white male was has a history of back pain back and previously underwent surgery in 2002 for discectomy. He was admitted with complaints of increasing back pain for the last few weeks which did not respond to anti- inflammatories and prednisone primary care physician ordered a MRI which revealed an osteomyelitis with a small epidural abscess in his L5-S1 and was sent to [place] for evaluation by neurosurgery and admission. Osteomyelitis Epidural abscess MSSA - WBC 19.5 on admission -> 12.3 (12.3) -> 7.9 (06/03) - Osteomyelitis lumbar spine L5-S1 started on ceftazidime and vancomycin - Appreciate consult from infectious disease - Appreciate consult from neurosurgery who does not feel surgery is indicated at this time, and recommended IR biopsy to direct abx treatment. - Pt had L5 bx for path and micro on 06/02 - Blood cultures: - 06/01 with MSSA - 06/02 the L5 bx cx with MSSA - 06/03 with MSSA - 06/06 with MSSA - 06/08 are No growth x 3 days - Patient was on on ceftazidime (06/01 -06/03) and Vanco (06/01 - 06/05). Per ID : If Staph aureus identified as MSSA ok to stop Vanco IV if no MRSA elsewhere. - Abx changed to cefazolin 2 gm Q8H (06/03 - present) and pt started on Gentamicin on 06/07 per ID - 2D echo 06/03/18: - Normal left ventricular size. - Mild concentric left ventricular hypertrophy. - The left ventricular systolic function is low normal with an estimated ejection fraction in the range of 50-55%. - Trace mitral valve regurgitation. - Aortic valve sclerosis is present. - Trace aortic valve regurgitation. - There is trace tricuspid valve regurgitation. - Trace pericardial effusion vs pericardial fat pad - CT chest/abdomen/pelvis on 06/07 remarkable only for ?reduced perfusion to areas in right kidney - [place] (06/08/18): - Normal left ventricular size and wall thickness. - The left ventricular systolic function is normal with an estimated ejection fraction in the range of 60-65%. - Left ventricular diastolic function parameters are normal. - Aortic valve sclerosis is present. - Small, non-mobile hyperechoic structure on the Left /Non-coronary cusps most consistent with calcification along with a thin, mobile structure at the cusp tip that may represent a Lambl's excrescence, however small vegetation cannot be excluded. - Trace aortic valve regurgitation. - Place PICC today - Discharge to SNF 06/12 - continue Ancef for 6 week duration from negative blood Cx - F/u with ID, Dr. Mackenzie Hoffman outpt in 2 weeks - PT following. - Pain has improved with Fentanyl patch 25mcg started on 06/09 and monitor closely - [place] 5/325 and 10/325 PRN as well as Morphine IV PRN. Can start to wean back on PRN pain meds in AM - Flexeril as needed for muscle spasms Diabetes - Diabetic diet - change accuchecks to prn Buttock wound - Wound presents as an area measuring 5cm x 6 cm with non blanchable purple discoloration or DTI that has opened on the R inner buttock to full thickness, revealing ~40% yellow tissue, ~10% pink tissue and ~50% purple tissue opening measures ~4cm x ~2cm x ~0.1cm.Smaller opening of DTI is also noted on L inner buttock, revealing 100% pink tissue - Appreciate consult from wound care and recommendations: 1.Please cleanse wound to sacrococcygeal area with normal saline or wound cleanser and pat dry. 2. Apply pea sized amount of hydrogel to opened portion of DTI. 3. Apply Calazime skin protectant paste to periwound circumferentially 4. Apply cavilon skin barrier film spray to intact skin before covering wound with bordered gauze. 5. Change daily or PRN if saturated or dislodged. 6. If patient is having multiple loose stools a day and dressing is being changed often, please leave wound open to air and apply Calazime skin protectant paste BID and PRN. 7. Please turn patient from L side to R side every 2 hours and PRN for comfort and offloading of laura prominences. Limit time spent on back to P. T. and meals. 8. Limit layers under patient, use one ultra sorb pad, do not use cotton underpads. 9. Place patient on low airloss bed ordered airapy or K 4 from [facility] when bed arrives. DVT prophylaxis with SCDs and Lovenox Progress Note: Quality VTE Deep Vein Thrombosis/Pulmonary Embolism Present on Admission: No
[2018-06-13] MEDS: Gentamicin/NS 80 mg Premix 100 ML IV.SIG SCH ×2 (00:36→08:44)
[2018-06-13 08:04] LABS: Baso % (Auto) 0.5 % (0.0-2.0); Eos # (Auto) 0.1 th/mm3 (0.0-0.4); Hematocrit 33.3 % (39.0-51.0); Hemoglobin 11.5 gm/dL (13.0-17.0); Lymph # (Auto) 1.1 th/mm3 (1.0-4.8); Lymph % (Auto) 20.2 % (9.0-44.0); Mean Corpuscular HGB Conc 34.5 % (32.0-36.0); Mean Corpuscular Hemoglobin 30.4 pg (27.0-34.0); Mean Corpuscular Volume 88.2 fL (80.0-100.0); Mono # (Auto) 0.5 th/mm3 (0.0-0.9); Mono % (Auto) 8.9 % (0.0-8.0); Neut # (Auto) 3.8 th/mm3 (1.8-7.7); Neut % (Auto) 69.4 % (16.0-70.0); Platelet Count 312 th/mm3 (150-450); Red Blood Count 3.78 mil/mm3 (4.50-5.90); Red Cell Distribution Width 13.9 % (11.6-17.2); White Blood Count 5.5 th/mm3 (4.0-11.0)
[2018-06-13] MEDS: ceFAZolin 2 GM IV IV.SIG SCH ×3 (08:04→23:55)
[2018-06-13] MEDS: Senna/Docusate Sodium 8.6/50 MG Tablet PO SCH ×2 (08:04→21:56)
[2018-06-13] MEDS: Enoxaparin Inj 40 MG/0.4 ML Syringe SQ SCH (08:04)
[2018-06-13 08:21] LABS: Anion Gap 6 meq/L (5-15); Blood Urea Nitrogen 13 mg/dL (7-18); Calcium 9.2 mg/dL (8.5-10.1); Carbon Dioxide 27.6 meq/L (21.0-32.0); Chloride 97 meq/L (98-107); Glomerular Filtration Rate Greater Than 89 mL/min (>89); Glucose,Random 120 mg/dL (74-106); Potassium 3.7 meq/L (3.5-5.1); Sodium 131 meq/L (136-145)
[2018-06-13 09:54] LABS: Bilirubin,Urine Negative (Negative); Clarity,Urine Hazy (Clear); Color,Urine Yellow (Yellw/Straw); Glucose,Urine (UA) Negative (Negative); Hyaline Casts,Urine 1 /lpf (0-3); Leukocyte Esterase,Urine Negative (Negative); Mucus,Urine Few /lpf (Occasional); Nitrite,Urine Negative (Negative); Specific Gravity,Urine 1.012 (1.002-1.035)
--- NOTE | 2018-06-13 13:44 | P.PNID ---
Subjective Remarks: is a 62 y/o WM with h/o back pain in 2002 s/p discectomy. He reports being heathy and fully functional prior to this. 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 He now reports back pain for last 3-4 weeks. He denies any constitutional symptoms like fever, chills, night sweats. He denies any other systemic symptoms of GI, or dental origin or skin origin. He denies any injuries to skin or IVDA. 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 When his back pain did not respond to usual measures an MRI spine was done with revealed osteomyelitis and ? small epidural abscess. I do not have access to these images as these were done at [facility] but radiologist will likely be able to review them prior to IR biopsy for which he is scheduled today. Patient was seen by Neurosurgery and IR biopsy recommended. ID consulted for evaluation and Mment of epidural abscess, discitis. Overnight events reviewed Overnight fevers 101 F No rash No diarrhea UO good No hearing issues. Antibiotics: Ancef IV Genta IV Lines: Lines ok Past Medical History: reviewed Allergies/Adverse Reactions: Allergies penicillin G Allergy (Unknown, Verified 06/01/18 19:02) Rash Objective Vital Signs 06/12/18 15:03 06/12/18 17:49 06/12/18 20:00 Temperature 102.1 F H 98.8 F 98.7 F Pulse Rate 102 H 88 Respiratory Rate 18 18 Blood Pressure 134/72 132/66 Pulse Oximetry 99 98 06/13/18 00:00 06/13/18 04:00 06/13/18 07:00 Temperature 98.1 F 98.6 F Pulse Rate 94 H 83 Respiratory Rate 18 18 12 Blood Pressure 127/62 130/63 Pulse Oximetry 99 98 06/13/18 07:48 06/13/18 11:42 Temperature 97.9 F 98.5 F Pulse Rate 77 89 Respiratory Rate 13 15 Blood Pressure 124/71 123/69 Pulse Oximetry 99 99 Intake & Output 06/12/18 06/13/18 06/13/18 18:59 06:59 18:59 Intake Total 300 / 300 150 / 150 150 / 150 Output Total 525 / 525 600 / 600 250 / 250 Balance -225 / -225 -450 / -450 -100 / -100 Weight 80 kg Intake: IV 300 / 300 150 / 150 150 / 150 Gentamicin/NS 80 mg Premix 100 200 / 200 100 / 100 100 / 100 ML @ 200 mls/hr IV.SIG Q8H MIKE Rx#:[id number] Ancef 2 GM Premix Inj 2 gm In 100 / 100 50 / 50 50 / 50 50 ml @ 100 mls/hr IV.SIG Q8H MIKE Rx#:[id number] Output: Urine 525 / 525 600 / 600 250 / 250 Other: # Voids 1 06/12/18 14:50 Blood - Peripheral Aerobic Blood Culture - Preliminary No growth in 1 day 06/12/18 14:50 Blood - Peripheral Anaerobic Blood Culture - Preliminary No growth in 1 day 06/12/18 14:45 Blood - Peripheral Aerobic Blood Culture - Preliminary No growth in 1 day 06/12/18 14:45 Blood - Peripheral Anaerobic Blood Culture - Preliminary No growth in 1 day 06/08/18 15:55 Blood - Peripheral Aerobic Blood Culture - Final No growth in 5 days 06/08/18 15:55 Blood - Peripheral Anaerobic Blood Culture - Final No growth in 5 days 06/08/18 15:50 Blood - Peripheral Aerobic Blood Culture - Final No growth in 5 days 06/08/18 15:50 Blood - Peripheral Anaerobic Blood Culture - Final No growth in 5 days 06/06/18 07:17 Blood - Peripheral Aerobic Blood Culture - Final Staphylococcus aureus 06/06/18 07:17 Blood - Peripheral Anaerobic Blood Culture - Final No growth in 5 days 06/06/18 07:23 Blood - Peripheral Aerobic Blood Culture - Final No growth in 5 days 06/06/18 07:23 Blood - Peripheral Anaerobic Blood Culture - Final No growth in 5 days Lab - Hematology Results 06/13/18 06:53 WBC 5.5 RBC 3.78 L Hgb 11.5 L Hct 33.3 L MCV 88.2 MCH 30.4 MCHC 34.5 RDW 13.9 Plt Count 312 MPV 7.0 Neut % (Auto) 69.4 Lymph % (Auto) 20.2 Dickenson % (Auto) 8.9 H Eos % (Auto) 1.0 Baso % (Auto) 0.5 Neut # (Auto) 3.8 Lymph # (Auto) 1.1 Dickenson # (Auto) 0.5 Eos # (Auto) 0.1 Baso # (Auto) 0.0 WBC Differential . Differential Comment Auto diff final Lab - Chemistry Results 06/13/18 06:53 Sodium 131 L Potassium 3.7 Chloride 97 L Carbon Dioxide 27.6 Anion Gap 6 BUN 13 Creatinine 0.70 Estimated GFR Greater than 89 Random Glucose 120 H Calcium 9.2 Imaging: ITS Impressions Chest X-Ray 06/01/18 17:59 CONCLUSION: No evidence of acute cardiopulmonary disease. Needle Biopsy/Aspiration X-Ray 06/02/18 18:06 CONCLUSION: 1. Uncomplicated fluoroscopic guided L5 biopsy, as above. Venous Doppler Study 06/03/18 00:00 CONCLUSION: 1. Incompletely occlusive thrombus in the superficial basilic vein in the right arm. 2. No evidence of DVT Abdomen/Pelvis CT 06/07/18 00:00 CONCLUSION: 1. Questionable abnormality involves the enhanced right kidney. There are some areas of mild decreased perfusion in the upper pole in the posterolateral right kidney mentioned in light of the given history. They are both subtle areas. The rest of the study is unremarkable except for small abdominal aortic aneurysm Chest CT 06/07/18 00:00 CONCLUSION: 1. Unremarkable chest CT examination. Specifically, no evidence for pneumonia as questioned.. Physical Exam: GENERAL: Well-nourished well-developed, not in acute distress SKIN: Cool and dry, no generalized rash HEAD: Atraumatic. Normocephalic. No temporal or scalp tenderness. EYES: Pupils equal round and reactive. Scleral icterus. No injection or drainage. No petechia ENT: Nothing abnormal detected NECK: Trachea midline. Supple, nontender, no meningeal signs. CARDIOVASCULAR: HS audible. RESPIRATORY: Clear to auscultation bilaterally. GASTROINTESTINAL: Abdomen soft nontender. MUSCULOSKELETAL: Extremities without clubbing, cyanosis. NEUROLOGICAL: Alert oriented 3. Psych cooperative Back: decub noted with eschar IV line sites ok. Assessment and Plan - Plan Sepsis on admission (leucocytosis, tachycardia, hypothermia plus source: epidural abscess. Epidural abscess, discitis. GPC bacteremia at time of writing note DM2 on metformin h.o discectomy in past Penicillin allergy as a child during episode of throat infection. Tolerated Ancef. Recs Continue Ancef IV for MSSA more directed therapy. DC Genta IV for synergy dosing. PALMIRA findings and Kidney septic emboli discussed with patient. Check UA as baseline and also in view of fevers. With WBC being normal suspect either drug fever or other non infectious causes of fever like DVT etc. Follow repeat blood cultures if negative at 72 hrs and no fevers will provide discharge recs. If fevers persist may need repeat PALMIRA and further workup. case altagracia Schmitz Case altagracia patient.
[2018-06-13] MEDS: Acetaminophen 325 MG Tablet PO PRN (15:21)
--- NOTE | 2018-06-13 16:02 | P.PNIM ---
Subjective Interval history: Pt denies fever. No chills or sweats. Physical Exam Vital signs: Last Vital Signs Temp 98.5 F 06/13/18 11:42 Pulse 89 06/13/18 11:42 Resp 16 06/13/18 15:20 BP 123/69 06/13/18 11:42 Pulse Ox 99 06/13/18 11:42 Narrative: General: NAD, AAOx3 Cardiac: Regular Chest: CTA Abd: +BS, soft, ND/NT Ext: No edema Results Labs CBC & Chem 7: 06/14/18 05:43 06/14/18 05:43 Assessment and Plan Plan 62-year-old white male was has a history of back pain back and previously underwent surgery in 2002 for discectomy. He was admitted with complaints of increasing back pain for the last few weeks which did not respond to anti- inflammatories and prednisone primary care physician ordered a MRI which revealed an osteomyelitis with a small epidural abscess in his L5-S1 and was sent to [facility] for evaluation by neurosurgery and admission. Osteomyelitis Epidural abscess MSSA - WBC 19.5 on admission -> 12.3 (12.3) -> 7.9 (06/03) - Osteomyelitis lumbar spine L5-S1 started on ceftazidime and vancomycin - Appreciate consult from infectious disease - Appreciate consult from neurosurgery who does not feel surgery is indicated at this time, and recommended IR biopsy to direct abx treatment. - Pt had L5 bx for path and micro on 06/02 - Blood cultures: - 06/01 with MSSA - 06/02 the L5 bx cx with MSSA - 06/03 with MSSA - 06/06 with MSSA - 06/08 No growth x 5 days - 06/12 --> no growth x 1 days - Patient was on on ceftazidime (06/01 -06/03) and Vanco (06/01 - 06/05). Per ID : If Staph aureus identified as MSSA ok to stop Vanco IV if no MRSA elsewhere. - Abx changed to cefazolin 2 gm Q8H (06/03 - present) and pt started on Gentamicin on 06/07 per ID - 2D echo 06/03/18: - Normal left ventricular size. - Mild concentric left ventricular hypertrophy. - The left ventricular systolic function is low normal with an estimated ejection fraction in the range of 50-55%. - Trace mitral valve regurgitation. - Aortic valve sclerosis is present. - Trace aortic valve regurgitation. - There is trace tricuspid valve regurgitation. - Trace pericardial effusion vs pericardial fat pad - CT chest/abdomen/pelvis on 06/07 remarkable only for ?reduced perfusion to areas in right kidney - PALMIRA (06/08/18): - Normal left ventricular size and wall thickness. - The left ventricular systolic function is normal with an estimated ejection fraction in the range of 60-65%. - Left ventricular diastolic function parameters are normal. - Aortic valve sclerosis is present. - Small, non-mobile hyperechoic structure on the Left /Non-coronary cusps most consistent with calcification along with a thin, mobile structure at the cusp tip that may represent a Lambl's excrescence, however small vegetation cannot be excluded. - Trace aortic valve regurgitation. - Pt had recurrent fever 102.1 (06/12) at 3PM. Repeat blood cultures --> pending - Case d/w Dr. Braxton (06/13). Await repeat blood culture (06/12) - anticipate d/c to SNF 06/14 or 06/15 - F/u with ID, Dr. Mackenzie blakept in 2 weeks - PT following. - Pain has improved with Fentanyl patch 25mcg started on 06/09 and monitor closely - [place] 5/325 and 10/325 PRN as well as Morphine IV PRN. Can start to wean back on PRN pain meds in AM - Flexeril as needed for muscle spasms Diabetes - Diabetic diet - change accuchecks to prn Buttock wound - Wound presents as an area measuring 5cm x 6 cm with non blanchable purple discoloration or DTI that has opened on the R inner buttock to full thickness, revealing ~40% yellow tissue, ~10% pink tissue and ~50% purple tissue opening measures ~4cm x ~2cm x ~0.1cm.Smaller opening of DTI is also noted on L inner buttock, revealing 100% pink tissue - Appreciate consult from wound care and recommendations: 1.Please cleanse wound to sacrococcygeal area with normal saline or wound cleanser and pat dry. 2. Apply pea sized amount of hydrogel to opened portion of DTI. 3. Apply Calazime skin protectant paste to periwound circumferentially 4. Apply cavilon skin barrier film spray to intact skin before covering wound with bordered gauze. 5. Change daily or PRN if saturated or dislodged. 6. If patient is having multiple loose stools a day and dressing is being changed often, please leave wound open to air and apply Calazime skin protectant paste BID and PRN. 7. Please turn patient from L side to R side every 2 hours and PRN for comfort and offloading of laura prominences. Limit time spent on back to P. T. and meals. 8. Limit layers under patient, use one ultra sorb pad, do not use cotton underpads. 9. Place patient on low airloss bed ordered airapy or K 4 from [facility] when bed arrives. DVT prophylaxis with SCDs and Lovenox Progress Note: Quality VTE Deep Vein Thrombosis/Pulmonary Embolism Present on Admission: No
--- NOTE | 2018-06-13 21:06 | XR ---
EXAM DATE: 06/13/2018 9:03 PM EST AGE/SEX: 62 years / Male INDICATIONS: Short of breath. CLINICAL DATA: This is the patient's subsequent encounter. Patient reports that signs and symptoms h ave been present for 2 weeks and indicates a pain score of 0/10. MEDICAL/SURGICAL HISTORY: None. None. COMPARISON: [facility], CHEST 1V SINGLE AP, 06/01/2018. . FINDINGS: A single AP view of the chest demonstrates the lungs to be symmetrically aerated without evidence of mass, infiltrate or effusion. The cardiomediastinal contours are unremarkable. Osseous structures a re intact. CONCLUSION: No evidence of acute cardiopulmonary disease. Electronically signed by: Luca Grant MD 06/13/2018 9:04 PM EST
--- NOTE | 2018-06-13 22:45 | US ---
EXAM DATE: 06/13/2018 10:32 PM EST AGE/SEX: 62 years / Male INDICATIONS: Bilateral leg swelling. CLINICAL DATA: This is the patient's initial encounter. Patient reports that signs and symptoms have been present for 1 day and indicates a pain score of 0/10. MEDICAL/SURGICAL HISTORY: Diabetes. High cholesterol. . Back surgery. COMPARISON: No prior exams available for comparison. TECHNIQUE: Venous ultrasound of both lower extremities was performed from the inguinal ligament to t he proximal calf. Real-time, color Doppler and spectral tracing, compression and augmentation techni ques were used. FINDINGS: Right Leg: Normal compression of the deep venous system from the inguinal region to the proximal gunjan f. No echogenic clot is seen. Normal response of the venous system to augmentation and respiration. Left Leg: Normal compression of the deep venous system from the inguinal region to the proximal calf . No echogenic clot is seen. Normal response of the venous system to augmentation and respiration. Other: None. CONCLUSION: Negative study. No venous thrombosis of either lower extremity. Electronically signed by: Luca Grant MD 06/13/2018 10:44 PM EST
[2018-06-14 06:23] LABS: Baso % (Auto) 0.4 % (0.0-2.0); Eos # (Auto) 0.1 th/mm3 (0.0-0.4); Eos % (Auto) 1.2 % (0.0-4.0); Hematocrit 33.9 % (39.0-51.0); Hemoglobin 11.3 gm/dL (13.0-17.0); Lymph % (Auto) 18.6 % (9.0-44.0); Mean Corpuscular HGB Conc 33.4 % (32.0-36.0); Mean Corpuscular Hemoglobin 29.9 pg (27.0-34.0); Mean Corpuscular Volume 89.6 fL (80.0-100.0); Mean Platelet Volume 6.7 fL (7.0-11.0); Mono # (Auto) 0.4 th/mm3 (0.0-0.9); Mono % (Auto) 8.1 % (0.0-8.0); Neut # (Auto) 3.9 th/mm3 (1.8-7.7); Neut % (Auto) 71.7 % (16.0-70.0); Platelet Count 340 th/mm3 (150-450); Red Blood Count 3.78 mil/mm3 (4.50-5.90); White Blood Count 5.4 th/mm3 (4.0-11.0)
[2018-06-14 06:56] LABS: Albumin 2.5 g/dL (3.4-5.0); Anion Gap 6 meq/L (5-15); Aspartate Aminotransferase 24 U/L (15-37); Blood Urea Nitrogen 12 mg/dL (7-18); Calcium 9.5 mg/dL (8.5-10.1); Carbon Dioxide 28.2 meq/L (21.0-32.0); Chloride 99 meq/L (98-107); Glomerular Filtration Rate Greater Than 89 mL/min (>89); Glucose,Random 128 mg/dL (74-106); Potassium 4.4 meq/L (3.5-5.1); Sodium 133 meq/L (136-145)
[2018-06-14 06:57] LABS: Alanine Aminotransferase 22 U/L (12-78)
[2018-06-14 06:59] LABS: Alkaline Phosphatase 126 U/L (45-117); Total Protein 7.6 g/dL (6.4-8.2)
[2018-06-14] MEDS: Senna/Docusate Sodium 8.6/50 MG Tablet PO SCH (08:18)
[2018-06-14] MEDS: Enoxaparin Inj 40 MG/0.4 ML Syringe SQ SCH (08:19)
[2018-06-14] MEDS: ceFAZolin 2 GM IV IV.SIG SCH ×2 (08:19→15:27)
--- NOTE | 2018-06-14 12:56 | P.PNIM ---
Subjective Interval history: Pts last recorded fever was at 1600 on 06/13 at 100 degrees but he felt like he was having intermittent chills last night. Physical Exam Vital signs: Last Vital Signs Temp 98.2 F 06/14/18 12:00 Pulse 83 06/14/18 12:00 Resp 20 06/14/18 12:00 BP 129/62 06/14/18 12:00 Pulse Ox 98 06/14/18 12:00 Narrative: General: NAD, AAOx3 Cardiac: Regular Chest: CTA Abd: +BS, soft, ND/NT Ext: No edema Results Labs CBC & Chem 7: 06/14/18 05:43 06/14/18 05:43 Imaging Chest X-Ray 06/01/18 17:59 CONCLUSION: No evidence of acute cardiopulmonary disease. Needle Biopsy/Aspiration X-Ray 06/02/18 18:06 CONCLUSION: 1. Uncomplicated fluoroscopic guided L5 biopsy, as above. Venous Doppler Study 06/03/18 00:00 CONCLUSION: 1. Incompletely occlusive thrombus in the superficial basilic vein in the right arm. 2. No evidence of DVT Abdomen/Pelvis CT 06/07/18 00:00 CONCLUSION: 1. Questionable abnormality involves the enhanced right kidney. There are some areas of mild decreased perfusion in the upper pole in the posterolateral right kidney mentioned in light of the given history. They are both subtle areas. The rest of the study is unremarkable except for small abdominal aortic aneurysm Chest CT 06/07/18 00:00 CONCLUSION: 1. Unremarkable chest CT examination. Specifically, no evidence for pneumonia as questioned.. Chest X-Ray 06/13/18 00:00 CONCLUSION: No evidence of acute cardiopulmonary disease. Venous Doppler Study 06/13/18 00:00 CONCLUSION: Negative study. No venous thrombosis of either lower extremity. Assessment and Plan Plan 62-year-old white male was has a history of back pain back and previously underwent surgery in 2002 for discectomy. He was admitted with complaints of increasing back pain for the last few weeks which did not respond to anti- inflammatories and prednisone primary care physician ordered a MRI which revealed an osteomyelitis with a small epidural abscess in his L5-S1 and was sent to [place] for evaluation by neurosurgery and admission. Osteomyelitis Epidural abscess MSSA - WBC 19.5 on admission -> 12.3 (12.3) -> 7.9 (06/03) - Osteomyelitis lumbar spine L5-S1 started on ceftazidime and vancomycin - Appreciate consult from infectious disease - Appreciate consult from neurosurgery who does not feel surgery is indicated at this time, and recommended IR biopsy to direct abx treatment. - Pt had L5 bx for path and micro on 06/02 - Blood cultures: - 06/01 with MSSA - 06/02 the L5 bx cx with MSSA - 06/03 with MSSA - 06/06 with MSSA - 06/08 are No growth x 5 days - 06/12 with No growth x 2 days - Patient was on on ceftazidime (06/01 -06/03) and Vanco (06/01 - 06/05). Abx changed to cefazolin 2 gm Q8H (06/03 - present) and pt started on Gentamicin ( - 06/13) per ID - 2D echo 06/03/18: - Normal left ventricular size. - Mild concentric left ventricular hypertrophy. - The left ventricular systolic function is low normal with an estimated ejection fraction in the range of 50-55%. - Trace mitral valve regurgitation. - Aortic valve sclerosis is present. - Trace aortic valve regurgitation. - There is trace tricuspid valve regurgitation. - Trace pericardial effusion vs pericardial fat pad - CT chest/abdomen/pelvis on 06/07 remarkable only for ?reduced perfusion to areas in right kidney - PALMIRA (06/08/18): - Normal left ventricular size and wall thickness. - The left ventricular systolic function is normal with an estimated ejection fraction in the range of 60-65%. - Left ventricular diastolic function parameters are normal. - Aortic valve sclerosis is present. - Small, non-mobile hyperechoic structure on the Left /Non-coronary cusps most consistent with calcification along with a thin, mobile structure at the cusp tip that may represent a Lambl's excrescence, however small vegetation cannot be excluded. - Trace aortic valve regurgitation. - Pt had fevers 06/11-06/13. Last documented fever was on 06/13/18 @ 1600. - Plan for PICC line once cultures from 06/12 are 72hr neg cx per ID - PT following. - Pain has improved with Fentanyl patch 25mcg started on 06/09 and monitor closely - [place] 5/325 and 10/325 PRN pain - Flexeril as needed for muscle spasms Diabetes - Diabetic diet - Accu check ACHS with medium dose SSI coverage Buttock wound - Wound presents as an area measuring 5cm x 6 cm with non blanchable purple discoloration or DTI that has opened on the R inner buttock to full thickness, revealing ~40% yellow tissue, ~10% pink tissue and ~50% purple tissue opening measures ~4cm x ~2cm x ~0.1cm.Smaller opening of DTI is also noted on L inner buttock, revealing 100% pink tissue - Appreciate consult from wound care and recommendations: 1.Please cleanse wound to sacrococcygeal area with normal saline or wound cleanser and pat dry. 2. Apply pea sized amount of hydrogel to opened portion of DTI. 3. Apply Calazime skin protectant paste to periwound circumferentially 4. Apply cavilon skin barrier film spray to intact skin before covering wound with bordered gauze. 5. Change daily or PRN if saturated or dislodged. 6. If patient is having multiple loose stools a day and dressing is being changed often, please leave wound open to air and apply Calazime skin protectant paste BID and PRN. 7. Please turn patient from L side to R side every 2 hours and PRN for comfort and offloading of laura prominences. Limit time spent on back to P. T. and meals. 8. Limit layers under patient, use one ultra sorb pad, do not use cotton underpads. 9. Place patient on low airloss bed ordered airapy or K 4 from [facility] when bed arrives. DVT prophylaxis with SCDs and Lovenox Progress Note: Quality VTE Deep Vein Thrombosis/Pulmonary Embolism Present on Admission: No
[2018-06-15] MEDS: Senna/Docusate Sodium 8.6/50 MG Tablet PO SCH ×3 (00:05→22:47)
[2018-06-15] MEDS: ceFAZolin 2 GM IV IV.SIG SCH ×4 (00:22→23:55)
[2018-06-15] MEDS: Enoxaparin Inj 40 MG/0.4 ML Syringe SQ SCH (09:16)
--- NOTE | 2018-06-15 15:34 | P.DS ---
DS: Providers Date of admission: 06/01/18 21:44 Primary care physician: Vlad Richard Consults: 06/01/18 21:43 Consult to Infectious Diseases Routine Consulting Provider: Jinny Braxton Reason for Consultation: FHCP-ID osteomyelitis l5/s1 with epidural abscess Notified:: Service Spoke with:: radha Date Notified:: 06/01/18 Time Notified:: 22:17 Ordering Provider: JEFFREY 06/07/18 13:37 Consult to Cardiology Routine Consulting Provider: Gabe Flor Does the patient have a Drill Operator Pneumatic who follows them?: Yes Preferred Bondactor Machine Operator:: Other-Specify in Comments Reason for Consultation: consult [facility] cardiology for PALMIRA. persistent bacteremia. Notified:: Office Spoke with:: MINOR Date Notified:: 06/07/18 Time Notified:: 13:41 Ordering Provider: NICKI 06/10/18 15:55 HUB Only Consult Order Routine Consulting Provider: [facility],[place] Brief History from admission: 62-year-old white male was has a history of back pain back in 2002 where he underwent surgery for discectomy for the last few weeks has had increasing back pain which did not respond to medications fluting anti-inflammatories and prednisone primary care physician ordered a MRI which revealed an osteomyelitis with a small epidural abscess in his L5-S1 and sent to [place] for evaluation by neurosurgery and admission. Patient denies any fever chills does have a history of diabetes for which he takes some p.o. medications including metformin he does not recall the name he will bring them in also takes a statin other than that is been essentially negative past medical in the emergency room he was seen and by the neurosurgeon not keen to have undergoing surgery but will first start on antibiotics including vancomycin ceftazidine. And will get evaluation by infectious disease. Patient denies fever chills nausea or vomiting. DS: Summary 62-year-old white male was has a history of back pain back and previously underwent surgery in 2002 for discectomy. He was admitted with complaints of increasing back pain for the last few weeks which did not respond to anti- inflammatories and prednisone primary care physician ordered a MRI which revealed an osteomyelitis with a small epidural abscess in his L5-S1 and was sent to [place] for evaluation by neurosurgery and admission. Osteomyelitis Epidural abscess MSSA - WBC 19.5 on admission -> 12.3 (12.3) -> 7.9 (06/03) - Osteomyelitis lumbar spine L5-S1 started on ceftazidime and vancomycin - Appreciate consult from infectious disease - Appreciate consult from neurosurgery who does not feel surgery is indicated at this time, and recommended IR biopsy to direct abx treatment. - Pt had L5 bx for path and micro on 06/02 - Blood cultures: - 06/01 with MSSA - 06/02 the L5 bx cx with MSSA - 06/03 with MSSA - 06/06 with MSSA - 06/08 are No growth x 5 days - 06/12 with No growth x 2 days - Patient was on on ceftazidime (06/01 -06/03) and Vanco (06/01 - 06/05). Abx changed to cefazolin 2 gm Q8H (06/03 - present) and pt started on Gentamicin ( - 06/13) per ID - 2D echo 06/03/18: - Normal left ventricular size. - Mild concentric left ventricular hypertrophy. - The left ventricular systolic function is low normal with an estimated ejection fraction in the range of 50-55%. - Trace mitral valve regurgitation. - Aortic valve sclerosis is present. - Trace aortic valve regurgitation. - There is trace tricuspid valve regurgitation. - Trace pericardial effusion vs pericardial fat pad - CT chest/abdomen/pelvis on 06/07 remarkable only for ?reduced perfusion to areas in right kidney - PALMIRA (06/08/18): - Normal left ventricular size and wall thickness. - The left ventricular systolic function is normal with an estimated ejection fraction in the range of 60-65%. - Left ventricular diastolic function parameters are normal. - Aortic valve sclerosis is present. - Small, non-mobile hyperechoic structure on the Left /Non-coronary cusps most consistent with calcification along with a thin, mobile structure at the cusp tip that may represent a Lambl's excrescence, however small vegetation cannot be excluded. - Trace aortic valve regurgitation. - Pt had fevers 06/11-06/13. Last documented fever was on 06/13/18 @ 1600. - Plan for PICC line once cultures from 06/12 are 72hr neg cx per ID - Per ID 06/15/18: Continue Ancef IV for MSSA more directed therapy. PALMIRA findings and Kidney septic emboli discussed with patient. PICC today. Post hospital infusion orders in chart. case dw Dr Schmitz Case dw patient. Patient needs follow up with ID notified office. He needs an MRI Spine in 2-3 weeks or sooner if pain worsens altagracia Rosen: flat affect, denies suicidal ideation. He will start antidepressant. Will sign off please call back if any change in clinical condition or questions. - PT following. - Pain has improved with Fentanyl patch 25mcg started on 06/09 and monitor closely - Payne and PRN pain - Flexeril as needed for muscle spasms Diabetes - Diabetic diet - Accu check ACHS with medium dose SSI coverage Buttock wound - Wound presents as an area measuring 5cm x 6 cm with non blanchable purple discoloration or DTI that has opened on the R inner buttock to full thickness, revealing ~40% yellow tissue, ~10% pink tissue and ~50% purple tissue opening measures ~4cm x ~2cm x ~0.1cm.Smaller opening of DTI is also noted on L inner buttock, revealing 100% pink tissue - Appreciate consult from wound care and recommendations: 1.Please cleanse wound to sacrococcygeal area with normal saline or wound cleanser and pat dry. 2. Apply pea sized amount of hydrogel to opened portion of DTI. 3. Apply Calazime skin protectant paste to periwound circumferentially 4. Apply cavilon skin barrier film spray to intact skin before covering wound with bordered gauze. 5. Change daily or PRN if saturated or dislodged. 6. If patient is having multiple loose stools a day and dressing is being changed often, please leave wound open to air and apply Calazime skin protectant paste BID and PRN. 7. Please turn patient from L side to R side every 2 hours and PRN for comfort and offloading of laura prominences. Limit time spent on back to P. T. and meals. 8. Limit layers under patient, use one ultra sorb pad, do not use cotton underpads. 9. Place patient on low airloss bed ordered airapy or K 4 from [facility] when bed arrives. Depression DVT prophylaxis with SCDs and Lovenox Plan to DC to SNF once PICC line placed and IV abx arranged The exam, history, and the medical decision-making described in the above note were completed with the assistance of the mid-level provider. I reviewed and agree with the findings presented. I attest that I had a [id number] encounter with the patient on the same day, and personally performed and documented my assessment and findings in the medical record. Patient examined. Assessment and plan formulated with Zoe Martinez PA-C. I agree with the above. [id number] Prescription Drug Monitoring Database has been queried and verified prior to prescribing the controlled substance. Acute pain exception. This patient has normal, predicted, physiological, and time limited response to an adverse mechanical stimulus associated with surgery, trauma, or acute illness as described in my notes. There is a lack of alternative treatment options other than to include the prescribed narcotic treatment for this condition. Time Spent with Patient Total time spent providing and/or coordinating discharge services: Quality: VTE Deep Vein Thrombosis/Pulmonary Embolism Present on Admission: No Exam Narrative Exam Narrative: General: NAD, AAOx3 Cardiac: Regular Chest: CTA Abd: +BS, soft, ND/NT Ext: No edema Results Labs on day of discharge: Preliminary micro results at discharge 06/12/18 14:50 Aerobic Blood Culture - Preliminary Blood - Peripheral No growth in 3 days Anaerobic Blood Culture - Preliminary No growth in 3 days 06/12/18 14:45 Aerobic Blood Culture - Preliminary Blood - Peripheral No growth in 3 days Anaerobic Blood Culture - Preliminary No growth in 3 days 06/02/18 15:27 Fungal Culture - Preliminary Abscess - Other No growth in 1 week 06/02/18 15:27 Mycobacterial Culture - Preliminary Abscess - Other No growth in 1 week Impressions ITS Impressions Needle Biopsy/Aspiration X-Ray 06/02/18 18:06 CONCLUSION: 1. Uncomplicated fluoroscopic guided L5 biopsy, as above. Abdomen/Pelvis CT 06/07/18 00:00 CONCLUSION: 1. Questionable abnormality involves the enhanced right kidney. There are some areas of mild decreased perfusion in the upper pole in the posterolateral right kidney mentioned in light of the given history. They are both subtle areas. The rest of the study is unremarkable except for small abdominal aortic aneurysm Chest CT 06/07/18 00:00 CONCLUSION: 1. Unremarkable chest CT examination. Specifically, no evidence for pneumonia as questioned.. Chest X-Ray 06/13/18 00:00 CONCLUSION: No evidence of acute cardiopulmonary disease. Venous Doppler Study 06/13/18 00:00 CONCLUSION: Negative study. No venous thrombosis of either lower extremity. Discharge Plan Discharge Disposition Patient Disposition: 03 Discharge to SNF Discharge Condition Condition: Stable Discharge Order Discharge Orders: Discharge Order (Routine); Ordered 06/15/18 Ordered By: Zoe Martinez Physicians Team ED Provider: Gagan Rollins ED Midlevel Provider: Mohsen Torres Primary Care Provider: Vlad Richard Attending Provider: Lonnie Johansen Other Providers: Jinny Braxton ; Gabe Flor ; [facility] Rxs /Orders / Referrals /Forms Prescriptions: New hydrocodone-acetaminophen 10-325 mg Tablet 1 tab PO Q4H PRN (Reason: Pain 6-10;If Unable To Take Po) Qty: 30 RF: 0 fentanyl [Duragesic] 25 mcg/hr Patch 72 Hour 1 patch Transdermal Q3D Qty: 8 RF: 0 sennosides-docusate sodium [Senna Plus] 8.6-50 mg Tablet 1 tab PO BID 30 Days Qty: 60 RF: 0 cefazolin in dextrose (iso-os) 2 gram/50 mL Piggyback 2 gm IV Q8H RF: 0 duloxetine [Cymbalta] 30 mg capsule,delayed release(DR/EC) 30 mg PO DAILY Qty: 30 RF: 0 cyclobenzaprine 5 mg tablet 5 mg PO Q8H Qty: 30 RF: 0 Continue simvastatin 10 mg Tablet 10 mg PO QPM RF: 0 pregabalin [Lyrica] 100 mg Capsule 100 mg PO TID RF: 0 fenofibrate nanocrystallized [Tricor] 145 mg Tablet 145 mg PO DAILY RF: 0 Referrals: Vlad Richard DO [Primary Care Provider] - See Instructions (follow up in 1 week) Mackenzie Hoffman MD [Physician] - See Instructions (follow up in 1 week) Status ED Status: Left Department
--- NOTE | 2018-06-15 16:04 | P.PNID ---
Subjective Remarks: is a 62 y/o WM with h/o back pain in 2002 s/p discectomy. He reports being heathy and fully functional prior to this. 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 He now reports back pain for last 3-4 weeks. He denies any constitutional symptoms like fever, chills, night sweats. He denies any other systemic symptoms of GI, or dental origin or skin origin. He denies any injuries to skin or IVDA. 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 When his back pain did not respond to usual measures an MRI spine was done with revealed osteomyelitis and ? small epidural abscess. I do not have access to these images as these were done at [facility] but radiologist will likely be able to review them prior to IR biopsy for which he is scheduled today. Patient was seen by Neurosurgery and IR biopsy recommended. ID consulted for evaluation and Mment of epidural abscess, discitis. Overnight events reviewed Overnight fevers 101 F No rash No diarrhea UO good No hearing issues. Antibiotics: Ancef IV Genta IV Lines: Lines ok Past Medical History: reviewed Allergies/Adverse Reactions: Allergies penicillin G Allergy (Unknown, Verified 06/01/18 19:02) Rash Objective Vital Signs 06/14/18 17:29 06/14/18 20:00 06/15/18 00:00 Temperature 98.5 F 99.2 F Pulse Rate 96 H 79 Respiratory Rate 16 19 17 Blood Pressure 133/74 134/73 Pulse Oximetry 98 99 06/15/18 04:00 06/15/18 07:54 06/15/18 12:00 Temperature 98.9 F 98.2 F 99.7 F H Pulse Rate 81 81 97 H Respiratory Rate 19 20 20 Blood Pressure 116/67 118/62 130/73 Pulse Oximetry 97 100 95 Intake & Output 06/14/18 06/15/18 06/15/18 18:59 06:59 18:59 Intake Total 100 / 100 150 / 150 100 / 100 Output Total 450 / 450 150 / 150 Balance -350 / -350 0 / 0 100 / 100 Weight 75.5 kg Intake: IV 100 / 100 50 / 50 100 / 100 Ancef 2 GM Premix Inj 2 gm In 100 / 100 50 / 50 100 / 100 50 ml @ 100 mls/hr IV.SIG Q8H MIKE Rx#:[id number] Oral 100 / 100 Output: Urine 450 / 450 150 / 150 Other: Date of Last Bowel Movement 06/14/18 06/14/18 06/14/18 06/12/18 14:50 Blood - Peripheral Aerobic Blood Culture - Preliminary No growth in 3 days 06/12/18 14:50 Blood - Peripheral Anaerobic Blood Culture - Preliminary No growth in 3 days 06/12/18 14:45 Blood - Peripheral Aerobic Blood Culture - Preliminary No growth in 3 days 06/12/18 14:45 Blood - Peripheral Anaerobic Blood Culture - Preliminary No growth in 3 days 06/08/18 15:55 Blood - Peripheral Aerobic Blood Culture - Final No growth in 5 days 06/08/18 15:55 Blood - Peripheral Anaerobic Blood Culture - Final No growth in 5 days 06/08/18 15:50 Blood - Peripheral Aerobic Blood Culture - Final No growth in 5 days 06/08/18 15:50 Blood - Peripheral Anaerobic Blood Culture - Final No growth in 5 days Lab - Hematology Results 06/14/18 05:43 WBC 5.4 RBC 3.78 L Hgb 11.3 L Hct 33.9 L MCV 89.6 MCH 29.9 MCHC 33.4 RDW 14.0 Plt Count 340 MPV 6.7 L Neut % (Auto) 71.7 H Lymph % (Auto) 18.6 Lumpkin % (Auto) 8.1 H Eos % (Auto) 1.2 Baso % (Auto) 0.4 Neut # (Auto) 3.9 Lymph # (Auto) 1.0 Lumpkin # (Auto) 0.4 Eos # (Auto) 0.1 Baso # (Auto) 0.0 WBC Differential . Differential Comment Auto diff final Lab - Chemistry Results 06/14/18 05:43 Sodium 133 L Potassium 4.4 Chloride 99 Carbon Dioxide 28.2 Anion Gap 6 BUN 12 Creatinine 0.77 Estimated GFR Greater than 89 Random Glucose 128 H Calcium 9.5 Total Bilirubin 0.4 AST 24 ALT 22 Alkaline Phosphatase 126 H C-Reactive Protein 7.70 H Total Protein 7.6 Albumin 2.5 L Imaging: ITS Impressions Needle Biopsy/Aspiration X-Ray 06/02/18 18:06 CONCLUSION: 1. Uncomplicated fluoroscopic guided L5 biopsy, as above. Abdomen/Pelvis CT 06/07/18 00:00 CONCLUSION: 1. Questionable abnormality involves the enhanced right kidney. There are some areas of mild decreased perfusion in the upper pole in the posterolateral right kidney mentioned in light of the given history. They are both subtle areas. The rest of the study is unremarkable except for small abdominal aortic aneurysm Chest CT 06/07/18 00:00 CONCLUSION: 1. Unremarkable chest CT examination. Specifically, no evidence for pneumonia as questioned.. Chest X-Ray 06/13/18 00:00 CONCLUSION: No evidence of acute cardiopulmonary disease. Venous Doppler Study 06/13/18 00:00 CONCLUSION: Negative study. No venous thrombosis of either lower extremity. Physical Exam: GENERAL: Well-nourished well-developed, not in acute distress SKIN: Cool and dry, no generalized rash HEAD: Atraumatic. Normocephalic. No temporal or scalp tenderness. EYES: Pupils equal round and reactive. Scleral icterus. No injection or drainage. No petechia ENT: Nothing abnormal detected NECK: Trachea midline. Supple, nontender, no meningeal signs. CARDIOVASCULAR: HS audible. RESPIRATORY: Clear to auscultation bilaterally. GASTROINTESTINAL: Abdomen soft nontender. MUSCULOSKELETAL: Extremities without clubbing, cyanosis. NEUROLOGICAL: Alert oriented 3. Psych cooperative Back: decub noted with eschar IV line sites ok. Assessment and Plan - Plan Sepsis on admission (leucocytosis, tachycardia, hypothermia plus source: epidural abscess. Epidural abscess, discitis. GPC bacteremia at time of writing note DM2 on metformin h.o discectomy in past Penicillin allergy as a child during episode of throat infection. Tolerated Ancef. Recs Continue Ancef IV for MSSA more directed therapy. PALMIRA findings and Kidney septic emboli discussed with patient. PICC today. Post hospital infusion orders in chart. case altagracia Schmitz Case altagracia patient. Patient needs follow up with ID notified office. He needs an MRI Spine in 2-3 weeks or sooner if pain worsems altagracia Rosen: flat affect, denies suicidal ideation. He will start antidepressant. Will sign off please call back if any change in clinical condition or questions.
--- NOTE | 2018-06-15 16:10 | P.DCO ---
Post Hospital Infusion Therapy - Infusion Therapy Location of Infusion Therapy: [facility] Infusion Therapy Order Appointment Date: 06/15/18 - Patient Information Patient Weight: 75.5 kg - Diagnosis (1) Epidural abscess Code(s): G06.2 - Extradural and subdural abscess, unspecified (2) Infection due to non-invasive methicillin sensitive Staphylococcus aureus Code(s): A49.01 - Methicillin susceptible Staphylococcus aureus infection, unspecified site - Administer Medication Cefazolin Dose: 2 grams IV Directions: q 8 hours Start Treatment: 06/15/18 Stop Treatment: 08/05/18 (tentative final per on follow up.) - Additional Information Venous Access: PICC Line Additional Instructions: [x] Peripheral flush and dressing changes per protocol [x] 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 [] May leave port accessed during therapy. [] May leave peripheral site accessed for duration of therapy. [x] If patient has SOB or respiratory distress, check oxygen saturation. If less than 90% or clinical signs of respiratory distress, administer oxygen at 2 L/min. via nasal cannula and notify physician. [x] Anaphylaxis/Reaction orders: * Stop infusion. * Keep IV line open with saline flush. * Notify physician. * Monitor vital signs every 15 minutes until symptoms resolve. * Check Oxygen saturation; Oxygen at 2 L/min. via nasal cannula if less than 90% or clinical signs of respiratory distress. * Administer diphenhydramine (Benadryl) 25 mg IV STAT, (unless patient has received as pre-med). May repeat once, if necessary. * Solu-Cortef 250 mg IVP over 30-60 seconds, use 100 mg vials for each dissolution. * Epinephrine (1mg/1 ml) 0.3 mg subcutaneously or IVP now with any signs of respiratory distress. * Check with physician for new additional pre-med orders if patient is re- challenged or re-treated. [x] May remove PICC line when treatment complete, after confirming with Physician. [x] If the patient is admitted to the hospital, the ED, or transferred via [facility] , complete transfer form including medication reconciliation order sheet. Weekly Labs: CBC w/diff, Creatinine, CRP, LFTs (Hepatic Function Test) Additional Information: Please draw weekly labs and fax to the number provided below. If any abnormal lab values or change in clinical condition please call the number below. Dr.Reba Hoffman office: Address: [address] [place], [place] [id number] - Case Management Consult Case Management Consult-IVF: Yes - Patient Information Allergies penicillin G Allergy (Unknown, Verified 06/01/18 19:02) Rash
[2018-06-15] MEDS ORDERED: Heparin Central Flush 100 UNIT/ML 5 ML Vial IV.FLUSH PRN (17:41)
--- NOTE | 2018-06-15 22:29 | US ---
EXAM DATE: 06/15/2018 10:24 PM EST AGE/SEX: 62 years / Male INDICATIONS: Bilateral arm swelling. CLINICAL DATA: This is the patient's subsequent encounter. Patient reports that signs and symptoms h ave been present for 1 month and indicates a pain score of 0/10. MEDICAL/SURGICAL HISTORY: Diabetes. Hypercholesterolemia. Osteomyelitis. . Back surgery. [place] [facility] [place]/03/[place]. . FINDINGS: Right Upper Extremity: Thrombus is seen distally in the right basilic vein. Left Upper Extremity: Thrombus is seen in the mid left basilic vein. Other: None. CONCLUSION: Bilateral basilic vein thrombosis, persistent on the right and new on the left. Electronically signed by: Luca Grant MD 06/15/2018 10:28 PM EST
[2018-06-15] MEDS ORDERED: Enoxaparin Inj 40 MG/0.4 ML Syringe SQ ONE (23:45)
--- NOTE | 2018-06-16 00:57 | P.PN ---
Subjective Interval history: called to see patient for abnormal venous study upper extremity ,patient had ultrasound for possible PIC placement and was found to have bilateral basilic vein thrombosis persistent on right new on left ,patient without any symptoms is receiving lovenox will give additional lovenox tonight and make attending aware in am. Physical Exam Vital signs: Vital Signs 06/15/18 04:00 06/15/18 07:54 06/15/18 12:00 Temperature 98.9 F 98.2 F 99.7 F H Pulse Rate 81 81 97 H Respiratory Rate 19 20 20 Blood Pressure 116/67 118/62 130/73 Pulse Oximetry 97 100 95 06/15/18 16:05 06/15/18 20:00 Temperature 98.7 F 98 F Pulse Rate 90 92 H Respiratory Rate 20 18 Blood Pressure 144/71 H 136/71 Pulse Oximetry 96 95 Intake & Output 06/15/18 06/15/18 06/16/18 06:59 18:59 06:59 Intake Total 150 / 150 100 / 100 Output Total 150 / 150 600 / 600 Balance 0 / 0 -500 / -500 Weight 75.5 kg 75.5 kg Intake: IV 50 / 50 100 / 100 Ancef 2 GM Premix Inj 2 gm In 50 / 50 100 / 100 50 ml @ 100 mls/hr IV.SIG Q8H MIKE Rx#:[id number] Oral 100 / 100 Output: Urine 150 / 150 600 / 600 Other: Date of Last Bowel Movement 06/14/18 06/14/18 Narrative: GENERAL: comfortable appearing SKIN: Warm and dry. HEAD: Atraumatic. Normocephalic. EYES: Pupils equal and round. No scleral icterus. No injection or drainage. ENT: No nasal bleeding or discharge. Mucous membranes pink and moist. NECK: Trachea midline. No JVD. CARDIOVASCULAR: Regular rate and rhythm. RESPIRATORY: No accessory muscle use. Clear to auscultation. Breath sounds equal bilaterally. GASTROINTESTINAL: Abdomen soft, non-tender, nondistended. MUSCULOSKELETAL: Extremities without clubbing, cyanosis, or edema. No obvious deformities. no pain on palpation NEUROLOGICAL: Awake and alert. No obvious cranial nerve deficits. Normal speech. PSYCHIATRIC: Appropriate mood and affect; insight and judgment normal. Results - Labs CBC & Chem 7: 06/14/18 05:43 06/14/18 05:43 Microbiology 06/12/18 14:50 Blood - Peripheral Aerobic Blood Culture - Preliminary No growth in 3 days 06/12/18 14:50 Blood - Peripheral Anaerobic Blood Culture - Preliminary No growth in 3 days 06/12/18 14:45 Blood - Peripheral Aerobic Blood Culture - Preliminary No growth in 3 days 06/12/18 14:45 Blood - Peripheral Anaerobic Blood Culture - Preliminary No growth in 3 days - Imaging Impressions Venous Doppler Study 06/15/18 00:00 CONCLUSION: Bilateral basilic vein thrombosis, persistent on the right and new on the left. Assessment and Plan - Assessment (1) Osteomyelitis Code(s): M86.9 - Osteomyelitis, unspecified Status: Acute Plan: Osteomyelitis lumbar spine L5-S1 started on ceftazidime and vancomycin will continue obtain infectious disease consult neurosurgery is already evaluated (2) Epidural abscess Code(s): G06.2 - Extradural and subdural abscess, unspecified Status: Acute Plan: As above ceftazidime vancomycin infectious disease consult neurosurgical consult (3) Diabetes Code(s): E11.9 - Type 2 diabetes mellitus without complications Status: Acute Plan: Patient not sure of his p.o. dose at home will use sliding scale medium coverage of NovoLog at this time - Plan chronic venous thrombosis on lovenox (3) Diabetes Qualifiers: Diabetes mellitus type: type 2
[2018-06-16] MEDS: Fenofibrate 145 MG Tablet PO SCH (08:07)
[2018-06-16] MEDS: ceFAZolin 2 GM IV IV.SIG SCH ×3 (08:07→23:49)
[2018-06-16] MEDS: Senna/Docusate Sodium 8.6/50 MG Tablet PO SCH ×2 (08:07→21:01)
[2018-06-16] MEDS: Heparin Central Flush 100 UNIT/ML 5 ML Vial IV.FLUSH SCH (08:07)
[2018-06-16] MEDS: Enoxaparin Inj 40 MG/0.4 ML Syringe SQ SCH (08:07)
[2018-06-16] MEDS ORDERED: Vancomycin Inj 1,000 MG in Sodium Chlor 0.9% Inj 250 ML IV.SIG SCH (12:00)
--- NOTE | 2018-06-16 15:08 | P.PNIM ---
Subjective Interval history: Pt has NO new clinical complaints. Pt's discharege was written for 06/15/18 However, Vascular access team found b/l UE DVT. Pt sent to Radiology department for formal assessment. b/l UE doppler studies showed basilic vein DVT x b/l persistent on right & new on left. Case d/w Radiologist, Dr. Pryor. Dumont catheter recommended. Pt received lovenox within 24 hours. Pt will have placement of Dumont catheter 06/17. Afterwards pt will discharge to [facility] as previously ordered. Follwoing course of IV ABX adminsitration, pt will need to return to [place] radiology for removal of Dumont catheter. Physical Exam Vital signs: Last Vital Signs Temp 97.5 F L 06/16/18 11:40 Pulse 76 06/16/18 11:40 Resp 20 06/16/18 11:40 BP 139/70 06/16/18 11:40 Pulse Ox 95 06/16/18 11:40 Narrative: General: NAD, AAOx3 Cardiac: Regular Chest: CTA Abd: +BS, soft, ND/NT Ext: No edema Results Labs CBC & Chem 7: 06/14/18 05:43 06/14/18 05:43 Assessment and Plan Assessment (1) Osteomyelitis: Code(s): M86.9 - Osteomyelitis, unspecified Status: Acute (2) Epidural abscess: Code(s): G06.2 - Extradural and subdural abscess, unspecified Status: Acute (3) Diabetes: Code(s): E11.9 - Type 2 diabetes mellitus without complications Status: Acute Plan 62-year-old white male was has a history of back pain back and previously underwent surgery in 2002 for discectomy. He was admitted with complaints of increasing back pain for the last few weeks which did not respond to anti- inflammatories and prednisone primary care physician ordered a MRI which revealed an osteomyelitis with a small epidural abscess in his L5-S1 and was sent to [place] for evaluation by neurosurgery and admission. Osteomyelitis Epidural abscess MSSA - WBC 19.5 on admission -> 12.3 (12.3) -> 7.9 (06/03) - Osteomyelitis lumbar spine L5-S1 started on ceftazidime and vancomycin - Appreciate consult from infectious disease - Appreciate consult from neurosurgery who does not feel surgery is indicated at this time, and recommended IR biopsy to direct abx treatment. - Pt had L5 bx for path and micro on 06/02 - Blood cultures: - 06/01 with MSSA - 06/02 the L5 bx cx with MSSA - 06/03 with MSSA - 06/06 with MSSA - 06/08 No growth x 5 days - 06/12 --> no growth x 1 days - Patient was on on ceftazidime (06/01 -06/03) and Vanco (06/01 - 06/05). Per ID : If Staph aureus identified as MSSA ok to stop Vanco IV if no MRSA elsewhere. - Abx changed to cefazolin 2 gm Q8H (06/03 - present) and pt started on Gentamicin on 06/07 per ID - 2D echo 06/03/18: - Normal left ventricular size. - Mild concentric left ventricular hypertrophy. - The left ventricular systolic function is low normal with an estimated ejection fraction in the range of 50-55%. - Trace mitral valve regurgitation. - Aortic valve sclerosis is present. - Trace aortic valve regurgitation. - There is trace tricuspid valve regurgitation. - Trace pericardial effusion vs pericardial fat pad - CT chest/abdomen/pelvis on 06/07 remarkable only for ?reduced perfusion to areas in right kidney - [place] (06/08/18): - Normal left ventricular size and wall thickness. - The left ventricular systolic function is normal with an estimated ejection fraction in the range of 60-65%. - Left ventricular diastolic function parameters are normal. - Aortic valve sclerosis is present. - Small, non-mobile hyperechoic structure on the Left /Non-coronary cusps most consistent with calcification along with a thin, mobile structure at the cusp tip that may represent a Lambl's excrescence, however small vegetation cannot be excluded. - Trace aortic valve regurgitation. - Pt had recurrent fever 102.1 (06/12) at 3PM. Repeat blood cultures --> pending - Case d/w Dr. Braxton (06/13). Await repeat blood culture (06/12) - anticipate d/c to SNF 06/14 or 06/15 - F/u with ID, Dr. Mackenzie Hoffman outpt in 2 weeks - PT following. - Pain has improved with Fentanyl patch 25mcg started on 06/09 and monitor closely - [place] 5/325 prn - Flexeril as needed for muscle spasms Pt has NO new clinical complaints. Pt's discharege was written for 06/15/18 However, Vascular access team found b/l UE DVT. Pt sent to Radiology department for formal assessment. b/l UE doppler studies showed basilic vein DVT x b/l persistent on right & new on left. Case d/w Radiologist, Dr. Pryor. Dumont catheter recommended. Pt received lovenox within 24 hours. Pt will have placement of Dumont catheter 06/17. Afterwards pt will discharge to [facility] as previously ordered. Follwoing course of IV ABX adminsitration, pt will need to return to [place] radiology for removal of Dumont catheter. Diabetes - Diabetic diet - change accuchecks to prn Buttock wound - Wound presents as an area measuring 5cm x 6 cm with non blanchable purple discoloration or DTI that has opened on the R inner buttock to full thickness, revealing ~40% yellow tissue, ~10% pink tissue and ~50% purple tissue opening measures ~4cm x ~2cm x ~0.1cm.Smaller opening of DTI is also noted on L inner buttock, revealing 100% pink tissue - Appreciate consult from wound care and recommendations: 1.Please cleanse wound to sacrococcygeal area with normal saline or wound cleanser and pat dry. 2. Apply pea sized amount of hydrogel to opened portion of DTI. 3. Apply Calazime skin protectant paste to periwound circumferentially 4. Apply cavilon skin barrier film spray to intact skin before covering wound with bordered gauze. 5. Change daily or PRN if saturated or dislodged. 6. If patient is having multiple loose stools a day and dressing is being changed often, please leave wound open to air and apply Calazime skin protectant paste BID and PRN. 7. Please turn patient from L side to R side every 2 hours and PRN for comfort and offloading of laura prominences. Limit time spent on back to P. T. and meals. 8. Limit layers under patient, use one ultra sorb pad, do not use cotton underpads. 9. Place patient on low airloss bed ordered airapy or K 4 from [facility] when bed arrives. DVT prophylaxis with SCDs and Lovenox Progress Note: Quality VTE Deep Vein Thrombosis/Pulmonary Embolism Present on Admission: No _ (1) Diabetes Qualifiers: Chronic kidney disease stage: Diabetes mellitus complication detail: Diabetes mellitus complication status: Diabetes mellitus snf insulin use : Diabetes mellitus macular edema: Diabetes mellitus type: type 2 Diabetic retinopathy severity: Laterality: Proliferative retinopathy type: (2) Osteomyelitis Qualifiers: Laterality: Osteomyelitis location: Osteomyelitis type:
[2018-06-17] MEDS: Fenofibrate 145 MG Tablet PO SCH (08:31)
[2018-06-17] MEDS: Senna/Docusate Sodium 8.6/50 MG Tablet PO SCH (08:31)
[2018-06-17] MEDS: ceFAZolin 2 GM IV IV.SIG SCH (08:32)
[2018-06-17] MEDS: Heparin Central Flush 100 UNIT/ML 5 ML Vial IV.FLUSH SCH (08:35)
[2018-06-17] MEDS ORDERED: fentaNYL Citrate Inj 250 MCG/5 ML Ampul ONE (08:55)
[2018-06-17] MEDS ORDERED: Lidocaine 1%/Epinephrine 1:100,000 Inj 30 ML Vial ONE (10:00)
[2018-06-17] MEDS ORDERED: *Heparin Central Flush 100 UNIT/ML 5 ML Vial PERIprocedural ONLY IV.FLUSH ONE (10:01)
--- NOTE | 2018-06-17 10:20 | P.RAD ---
Post Procedure Progress Note - Pre Procedure Diagnosis (1) Osteomyelitis - Post Procedure Diagnosis (1) Osteomyelitis - Procedure Information Procedure Date: 06/17/18 Supervising Radiologist: Mikey Pryor MD Anesthesia: Conscious Sedation - Plan of Activity Patient to Unit: Nursing Unit Patient Condition: Good See PACS Report for procedural detail/treatment. [facility] Radiology Procedures right Internal Jugular Tunneled Central Line Placement Device: single lumen
--- NOTE | 2018-06-17 10:43 | IR ---
EXAM DATE: 06/17/2018 10:31 AM EST AGE/SEX: 62 years / Male INDICATIONS: Patient with a history of osteomyelitis. CLINICAL DATA: This is the patient's initial encounter. Patient reports that signs and symptoms have been present for 2 weeks and indicates a pain score of 5/10. MEDICAL/SURGICAL HISTORY: Osteomyelitis. Diabetes. Back surgery COMPARISON: No prior exams available for comparison. FLUORO TIME (min): 0.12 IMAGE SERIES: 1 SEDATION TIME (min): 30 MEDICATION(S): 1.5mg midazolam (Versed) IV 75mcg fentanyl (Sublimaze) IV DEVICE(S): Right 6F single lumen hick man . . PROCEDURE: 1. Ultrasound-guided puncture of the prescribed vein. 2. Fluoroscopic guidance. 3. Dumont catheter placement 4. Conscious sedation with continuous EKG and oximetry monitoring. The risks, benefits and alternatives to the procedure were explained and verbal and written consent w as obtained. The site was prepped in sterile fashion. Full sterile technique was used, including ca p, mask, sterile gloves and gown and a large sterile sheet. Hand hygiene and 2% chlorhexidine Betadi ne was utilized per protocol for cutaneous antisepsis with appropriate dry time for site. Sterile ge l and sterile probe cover were utilized for ultrasound guidance. The skin and subcutaneous tissues w ere infiltrated with local anesthetic solution. With ultrasound and fluoroscopic guidance a dermatotomy was created in the supraclavicular region. A micropuncture set was used to access to the prescribed vein and serial dilatation was performed to a ccept a Dumont catheter. A subcutaneous tunnel was created and in antegrade fashion the catheter wa s pulled through the tunnel, cut to the appropriate length and place through the sheath. The cathete r was locked with heparin and sutured in place. Conscious sedation was performed with the prescribed dosages and duration as above in the presence of an independent trained radiology nurse to assist in the monitoring of the patient. EKG and oximetry remained stable throughout the procedure. The patient tolerated the procedure well and there were no complications. The patient was sent to post anesthesia recovery in stable condition. CONCLUSION: 1. Uncomplicated Dumont catheter placement as above. Electronically signed by: Mikey Pryor MD 06/17/2018 10:41 AM EST
[2018-06-17 11:19] VITALS: O2SAT 97
[2018-06-17 12:07] VITALS: BP 154/80; PULSE 92; RESP 20; TEMP 98.2
== END 2018-06-17 13:02 ==
LOC: NEDA 17:24 → NEPE 17:24 → N05 22:37
PROVIDERS: ADMIT Hospitalist; ATTEND Hospitalist
DX: E11.69 Type 2 diabetes mellitus with other specified complication; Z79.84 Long term (current) use of oral hypoglycemic drugs; I71.4 Abdominal aortic aneurysm, without rupture; B95.61 Methicillin susceptible Staphylococcus aureus infection as the cause of diseases classified elsewhere; M62.838 Other muscle spasm; I35.8 Other nonrheumatic aortic valve disorders; M46.46 Discitis, unspecified, lumbar region; Z88.0 Allergy status to penicillin; E11.22 Type 2 diabetes mellitus with diabetic chronic kidney disease; M46.27 Osteomyelitis of vertebra, lumbosacral region; I76 Septic arterial embolism; N18.9 Chronic kidney disease, unspecified; I82.91 Chronic embolism and thrombosis of unspecified vein; R00.0 Tachycardia, unspecified; L89.159 Pressure ulcer of sacral region, unspecified stage; W19.XXXA Unspecified fall, initial encounter; E78.00 Pure hypercholesterolemia, unspecified; A41.9 Sepsis, unspecified organism; E11.3519 Type 2 diabetes mellitus with proliferative diabetic retinopathy with macular edema, unspecified eye; Z79.4 Long term (current) use of insulin; G06.2 Extradural and subdural abscess, unspecified; I74.8 Embolism and thrombosis of other arteries